=== PATIENT | male | born 1940 | race Caucasian/White ===

== ENCOUNTER 2016-10-02 18:51 | Inpatient (IN) | payer MEDICARE, OTHER ==
[~2016-10-02] VITALS: Ht 172.7 cm; Wt 115.0 kg
[~2016-10-02 18:51] MED LIST: ASPI81 PO; ATOR10 PO; CINN500C7 PO; CLOP75 PO; FENO50TA PO; FISH1000 PO; GLIP1TAB18 PO; IRON18TA2 PO; LANTINJ SC; LASI20TA PO; LISI-360 PO; PROT40TA PO; SERT50 PO; SITA100 PO; SULF1SOL4 RIGHT EYE; SYNT25TA PO; TAB-TAB PO; TAMS0.4C67 PO; TIZA4CAP PO; TOPR50TA PO; ZITH500T PO
[2016-10-02 19:00] VITALS: BP 112/67; PULSE 112; RESP 20; TEMP 98.6; O2SAT 97
[2016-10-02 19:20] VITALS: BP 112/77; PULSE 114; RESP 18; O2SAT 93
[2016-10-02] MEDS ORDERED: SODIUM CHLORIDE 0.9% FLUSH 5 ML FLUSH IVF PRN (19:30)
[2016-10-02] MEDS ORDERED: FUROSEMIDE 100 MG/10 ML VIAL IVP ONE (19:30)
--- NOTE | 2016-10-02 19:34 | PD ---
HPI Chief Complaint: Edema Time Seen by Provider: 19:14 Travel History International Travel<30 days: No Contact w/Intl Traveler<30days: No Traveled to known affect area: No History of Present Illness HPI The patient is a 75-year-old male with a history of insulin-dependent diabetes and congestive heart failure who complains since Friday of some slight shortness of breath and swelling in both legs and right arm. He has been taking his 20 mg Lasix daily. He is on Plavix for his coronary artery disease. He does not have a history of atrial fibrillation. PFSH Past Medical History Hx Anticoagulant Therapy: Yes Cancer: Yes (SKIN LESIONS REMOVED FROM FACE) Cardiovascular Problems: Yes High Cholesterol: Yes Chemotherapy: No Cerebrovascular Accident: Yes Diabetes: Yes Genitourinary: No Hypertension: Yes Immune Disorder: No Musculoskeletal: Yes (RIGHT ARM FLACID, RIGHT LEG WEAK) Neurologic: Yes (BROCAS APHASIA) Psychiatric: No Reproductive: No Respiratory: Yes Radiation Therapy: No Thyroid Disease: Yes (ON THYROXINE) Past Surgical History Abdominal Surgery: Yes (GALL STONES REMOVED ENDOSCOPICALLY 2006) AICD: No Arteriovenous Shunt: No Body Medical Devices: STENTS Cardiac Surgery: Yes (STENTS: CAROTID 2009, CARDIAC 1997, CABG 1995) Coronary Artery Bypass Graft: Yes Genitourinary Surgery: Yes (KIDNEY STENTS) Insulin Pump: No Joint Replacement: No Pacemaker: No Other Surgery: Yes (carotid stent, right) Social History Alcohol Use: No Tobacco Use: No Substance Use: No Allergies-Medications (Allergen,Severity, Reaction): Coded Allergies: No Known Allergies (Verified , 10/02/16) Reported Meds & Prescriptions Reported Meds & Active Scripts Active Sodium Sulamyd (Sulfacetamide Sodium) 15 Ml Soln 2 Drop RIGHT EYE EVERY 4 H Zithromax (Azithromycin) 500 Mg Tab 500 Mg PO DAILY Lasix (Furosemide) 20 Mg Tab 20 Mg PO DAILYPRN Reported Lantus Solostar (Insulin Glargine) 100 Units/Ml Vial 40 Units SC HS Protonix (Pantoprazole Sodium) 40 Mg Tab 40 Mg PO DAILY Lisinopril 10 Mg Tab 10 Mg PO BID Multivitamin (Multivitamins) 1 Tab Tab 1 Tab PO DAILY Iron (Ferrous Sulfate) 18 Mg Tab 65 Mg PO DAILY Cinnamon 500 Mg Cap 1,000 Mg PO HS Fish Oil 1,000 Mg Cap 2,000 Mg PO BID Levothroid (Levothyroxine Sodium) 25 Mcg Tab 25 Mcg PO DAILY EARLY AM Aspirin 81 Mg Tab 81 Mg PO HS Januvia (Sitagliptin Phosphate) 100 Mg Tab 100 Mg PO DAILY MID DAY Lipitor (Atorvastatin Calcium) 10 Mg Tab 10 Mg PO HS Tizanidine Hcl (Tizanidine HCl) 4 Mg Tab 4 Mg PO HS Flomax (Tamsulosin HCl) 0.4 Mg Cap 0.4 Mg PO DAILY Plavix (Clopidogrel Bisulfate) 75 Mg Tab 75 Mg PO DAILY Tricor (Fenofibrate) 145 Mg Tab 145 Mg PO DAILY Glipizide Er (Glipizide) 5 Mg Tab 10 Mg PO BID Zoloft (Sertraline HCl) 50 Mg Tab 75 Mg PO DAILY Toprol Xl (Metoprolol Succinate) 50 Mg Tabcr 50 Mg PO DAILY Review of Systems Except as stated in HPI: all other systems reviewed are Neg Physical Exam Narrative GENERAL: The patient is alert, oriented 3 in no respiratory distress. His vital signs show heart rate of 112 which shows a regular rhythm with runs of tachycardia, likely atrial, interposed. SKIN: Warm and dry. HEAD: Atraumatic. Normocephalic. EYES: Pupils equal and round. No scleral icterus. No injection or drainage. ENT: No nasal bleeding or discharge. Mucous membranes pink and moist. NECK: Trachea midline. No JVD. CARDIOVASCULAR: Tachycardia rhythm. No murmur appreciated. RESPIRATORY: No accessory muscle use. A few bibasal Rales are heard. Breath sounds equal bilaterally. GASTROINTESTINAL: Abdomen soft, non-tender, nondistended. Hepatic and splenic margins not palpable. MUSCULOSKELETAL: No obvious deformities. No clubbing. No cyanosis. There is 3 + bilateral lower extremity edema. No calf vein tenderness is present and no cord is palpated in the calf NEUROLOGICAL: Awake and alert. No obvious cranial nerve deficits. Motor grossly within normal limits. Normal speech. PSYCHIATRIC: Appropriate mood and affect; insight and judgment normal. Data Data Last Documented VS Vital Signs Date Time Temp Pulse Resp B/P Pulse Ox O2 Delivery O2 Flow Rate FiO2 10/02/16 19:20 114 18 112/77 93 Room Air 10/02/16 19:00 98.6 Orders Complete Blood Count With Diff (10/02/16 19:21) Comprehensive Metabolic Panel (10/02/16 19:21) B-Type Natriuretic Peptide (10/02/16 19:21) Magnesium (Mg) (10/02/16 19:21) Troponin I (10/02/16 19:21) Urinalysis - C+S If Indicated (10/02/16 19:21) Iv Access Insert/Monitor (10/02/16 19:21) Ecg Monitoring (10/02/16 19:21) Oximetry (10/02/16 19:21) Oxygen Administration (10/02/16 19:21) Chest, Pa & Lat (10/02/16 19:21) Sodium Chloride 0.9% Flush (Ns Flush) (10/02/16 19:30) Furosemide Inj (Lasix Inj) (10/02/16 19:30) Electrocardiogram (10/02/16 19:22) Labs Laboratory Tests Test 10/02/16 19:45 White Blood Count 10.6 TH/MM3 Red Blood Count 3.86 MIL/MM3 Hemoglobin 11.7 GM/DL Hematocrit 35.1 % Mean Corpuscular Volume 90.9 FL Mean Corpuscular Hemoglobin 30.3 PG Mean Corpuscular Hemoglobin 33.3 % Concent Red Cell Distribution Width 13.7 % Platelet Count 212 TH/MM3 Mean Platelet Volume 7.9 FL Neutrophils (%) (Auto) 83.0 % Lymphocytes (%) (Auto) 9.3 % Monocytes (%) (Auto) 6.9 % Eosinophils (%) (Auto) 0.2 % Basophils (%) (Auto) 0.6 % Neutrophils # (Auto) 8.8 TH/MM3 Lymphocytes # (Auto) 1.0 TH/MM3 Monocytes # (Auto) 0.7 TH/MM3 Eosinophils # (Auto) 0.0 TH/MM3 Basophils # (Auto) 0.1 TH/MM3 CBC Comment DIFF FINAL Differential Comment Sodium Level 137 MEQ/L Potassium Level 4.4 MEQ/L Chloride Level 100 MEQ/L Carbon Dioxide Level 28.4 MEQ/L Anion Gap 9 MEQ/L Blood Urea Nitrogen 36 MG/DL Creatinine 1.90 MG/DL Estimat Glomerular Filtration 35 ML/MIN Rate Random Glucose 163 MG/DL Calcium Level 8.9 MG/DL Magnesium Level 1.8 MG/DL Total Bilirubin 0.8 MG/DL Aspartate Amino Transf 29 U/L (AST/SGOT) Alanine Aminotransferase 49 U/L (ALT/SGPT) Alkaline Phosphatase 46 U/L Troponin I 0.64 NG/ML B-Type Natriuretic Peptide 618 PG/ML Total Protein 6.6 GM/DL Albumin 3.0 GM/DL MDM Medical Decision Making Medical Screen Exam Complete: Yes Emergency Medical Condition: Yes Medical Record Reviewed: Yes Interpretation(s) The troponin is 0.64. The EKG shows sinus rhythm with runs of atrial tachycardia. The total rate is 116. The CBC shows a hemoglobin of 11.7 and hematocrit of 35.1. There are 83% neutrophils. The complete metabolic profile shows a BUN of 36, creatinine 1.9 and albumen 3.0. The BNP is 618. The chest x -ray shows cardiomegaly. Differential Diagnosis Congestive heart failure, pulmonary edema, acute coronary syndrome, electrolyte disorder, hypo-/hyperglycemia Narrative Course The patient has congestive heart failure. The elevation of the troponin I may be from a congestive heart failure. He has no chest discomfort to go along with an acute coronary syndrome. He also has a tachycardia which is mostly because of runs of atrial tachycardia. His underlying rhythm is sinus. The EKG computer report says this is atrial fibrillation but this is not atrial fibrillation. Diagnosis Primary Impression: Congestive heart failure Additional Impression: Elevated troponin I level Mauricio Coats MD Oct 02, 2016 19:34
[2016-10-02 19:58] LABS: AUTOMATED NEUTROPHIL # 8.8 TH/MM3 (1.8-7.7); BASOPHIL # 0.1 TH/MM3 (0-0.2); BASOPHIL % 0.6 % (0.0-2.0); EOSINOPHIL % 0.2 % (0.0-4.0); HEMATOCRIT 35.1 % (39.0-51.0); HEMO FLAGS DIFF FINAL; LYMPH % 9.3 % (9.0-44.0); MEAN CELL VOLUME 90.9 FL (80.0-100.0); MEAN CORPUSCULAR HEMOGLOBIN 30.3 PG (27.0-34.0); MEAN CORPUSCULAR HGB CONC 33.3 % (32.0-36.0); MONO % 6.9 % (0.0-8.0); PLATELET COUNT 212 TH/MM3 (150-450); RED BLOOD COUNT 3.86 MIL/MM3 (4.50-5.90); RED CELL DISTRIBUTION WIDTH 13.7 % (11.6-17.2); WHITE BLOOD COUNT 10.6 TH/MM3 (4.0-11.0)
[2016-10-02 20:07] LABS: CHLORIDE 100 MEQ/L (98-107); POTASSIUM 4.4 MEQ/L (3.5-5.1); SODIUM (NA) 137 MEQ/L (136-145)
[2016-10-02 20:11] LABS: ANION GAP 9 MEQ/L (5-15); BICARBONATE 28.4 MEQ/L (21.0-32.0); BLOOD UREA NITROGEN 36 MG/DL (7-18); MAGNESIUM 1.8 MG/DL (1.5-2.5)
[2016-10-02 20:14] LABS: ALT (GPT) 49 U/L (12-78); AST (GOT) 29 U/L (15-37); GLOMERULAR FILTRATION RATE 35 ML/MIN (>89)
[2016-10-02 20:15] LABS: TOTAL BILIRUBIN ADULT 0.8 MG/DL (0.2-1.0)
[2016-10-02 20:16] LABS: ALKALINE PHOSPHATASE 46 U/L (45-117)
--- NOTE | 2016-10-02 20:34 | RADHPO ---
EXAM DATE/TIME: 10/02/2016 20:03 [facility] COMPARISON: CHEST PA & LAT, June 13, 2014, 2:22. INDICATIONS : Shortness of breath. MEDICAL HISTORY : Congestive heart failure. Hypertension Diabetes mellitus type II. SURGICAL HISTORY : CABG. Stents. ENCOUNTER: Initial ACUITY: 2 days PAIN SCORE: 0/10 LOCATION: chest FINDINGS: Lungs are hypoaerated. Mild interstitial vascular prominence is noted. Evidence of consolidating airs pace disease or effusion. Heart is mildly enlarged. Median sternotomy wires are noted. CONCLUSION: Poor respiratory chest without evidence of significant airspace disease or acute congestion. Cardiomegaly with evidence of previous surgery. Orion Vences MD on October 02, 2016 at 20:31 Board Certified Radiologist. This report was verified electronically.
[2016-10-02 20:36] LABS: BLOOD, URINE NEG (NEG); GLUCOSE,URINE NEG (NEG); KETONE, URINE NEG (NEG); NITRITE,URINE NEG (NEG); PH, URINE 5.5 (5.0-8.5)
[2016-10-02 20:43] LABS: URINE COLOR YELLOW (YELLW/STRAW)
[2016-10-02 20:44] LABS: COMMENT (UR) CULT NOT INDICATED; CULTURE IF INDICATED CULT NOT INDICATED; RBC, URINE 0-2 /hpf (0-3); SQUAMOUS EPITHELIAL CELL URINE 0-5 /hpf (0-5); WBC, URINE 0-2 /hpf (0-5)
[2016-10-02] MEDS: SODIUM CHLORIDE 0.9% FLUSH 5 ML FLUSH FLUSH SCH (21:00)
[2016-10-02] MEDS ORDERED: ONDANSETRON HCL 4 MG/2 ML VIAL IVP PRN (21:00)
[2016-10-02] MEDS ORDERED: NALOXONE HCL 0.4 MG/ML AMP IV PRN (21:00)
[2016-10-02] MEDS ORDERED: SODIUM CHLORIDE 0.9% FLUSH 5 ML FLUSH FLUSH PRN (21:00)
[2016-10-02 21:12] LABS: INTERNATIONAL NORMALIZED RATIO 1.1 RATIO; PROTHROMBIN TIME - PATIENT 12.2 SEC (9.8-11.6)
[2016-10-02] MEDS ORDERED: NITROGLYCERIN 0.4 MG SL 25 TABS/BTL SL PRN (21:30)
[2016-10-02 21:40] VITALS: BP 115/74; PULSE 107; RESP 18; O2SAT 98
[2016-10-02] MEDS ORDERED: PANT40TA3 PO (21:51)
[2016-10-02] MEDS ORDERED: FURO20TA PO (21:51)
[2016-10-02] MEDS ORDERED: TIZA4CAP3 PO (21:51)
[2016-10-02] MEDS ORDERED: LANTUS2P SQ (21:51)
[2016-10-02] MEDS ORDERED: ASPI81CH CHEW (21:51)
[2016-10-02] MEDS ORDERED: LISI10TA3 PO (21:51)
[2016-10-02] MEDS ORDERED: LISI-515 PO (21:51)
[2016-10-02] MEDS ORDERED: OMEG100037 PO (21:51)
[2016-10-02] MEDS ORDERED: SERT-132 PO (21:51)
[2016-10-02] MEDS ORDERED: LEVO25TA4 PO (21:51)
[2016-10-02] MEDS ORDERED: ATOR10TA15 PO (21:51)
[2016-10-02] MEDS ORDERED: FERR1TAB36 PO (21:51)
[2016-10-02] MEDS ORDERED: TAMS0.4C4 PO (21:51)
[2016-10-02] MEDS ORDERED: GLIP10TA67 PO (21:51)
[2016-10-02] MEDS ORDERED: FENO145T2 PO (21:51)
[2016-10-02] MEDS ORDERED: SERT25TA83 PO (21:51)
[2016-10-02] MEDS ORDERED: METO50TA11 PO (21:51)
[2016-10-02] MEDS ORDERED: SITA1TAB2 PO (21:51)
[2016-10-02] MEDS ORDERED: CLOP75TA PO (21:51)
[2016-10-02] MEDS: HEPARIN-D5W INJ 250 ML IV SCH (22:05)
[2016-10-02 22:23] LABS: APTT (PATIENT) 33.3 SEC (24.3-30.1)
[2016-10-03] VITALS (25 sets, daily range): BP systolic 114–134; BP diastolic 64–82; PULSE 78–128; RESP 18; TEMP 97.8–98.6; O2SAT 94–99
[2016-10-03 02:43] LABS: AUTOMATED NEUTROPHIL # 9.2 TH/MM3 (1.8-7.7); BASOPHIL # 0.1 TH/MM3 (0-0.2); BASOPHIL % 0.9 % (0.0-2.0); EOSINOPHIL % 0.4 % (0.0-4.0); HEMO FLAGS DIFF FINAL; LYMPH % 8.6 % (9.0-44.0); MEAN CELL VOLUME 90.8 FL (80.0-100.0); MEAN CORPUSCULAR HGB CONC 34.1 % (32.0-36.0); MONO % 7.5 % (0.0-8.0); NEUT % 82.6 % (16.0-70.0); PLATELET COUNT 210 TH/MM3 (150-450); RED BLOOD COUNT 3.86 MIL/MM3 (4.50-5.90); RED CELL DISTRIBUTION WIDTH 14.5 % (11.6-17.2); WHITE BLOOD COUNT 11.1 TH/MM3 (4.0-11.0)
[2016-10-03 02:52] LABS: APTT (PATIENT) 35.1 SEC (24.3-30.1)
[2016-10-03] MEDS ORDERED: HEPARIN SODIUM - IV 10,000 UNITS/10 ML VIAL IV PRN (03:00)
[2016-10-03] MEDS: HEPARIN SODIUM - IV 10,000 UNITS/10 ML VIAL IV PRN ×3 (03:06→23:52)
[2016-10-03 03:13] LABS: POTASSIUM 3.8 MEQ/L (3.5-5.1)
--- NOTE | 2016-10-03 03:23 | HHI.HP ---
[facility] Service [place] [facility] Primary Care Physician Non-Staff Admission Diagnosis acute coronary syndrome, CHF Diagnoses: Chief Complaint: Not really able to form sentences and give specific complaints Travel History International Travel<30 Days: No Contact w/Intl Traveler <30 Da: No Traveled to Known Affected Are: No History of Present Illness History from patient, ER physician communication, and review of medical records. Patient is somewhat of a poor historian. 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 However he is able to answer questions by stating yes or no. When asked whether he came to hospital because he was short of breath, he stated yes. He also reports of chest pain. Denies radiation to his arms or neck. Denies any nausea or vomiting. Denies any abdominal pains. Denies any diarrhea. Denies any black color stools or red color stools. Denies any urinary burning or pain on urination or blood in his urine. Denies fever. The patient initially presented to [facility] emergency room. Workup there revealed elevated BNP, with elevated troponin levels. When asked about a prior history of CAD, patient showed me his midline surgical scar. When asked whether this was a bypass, he nodded. Also reports of left carotid artery surgery. Patient is noted to be swelling in his lower extremity and his right upper extremity. When asked about whether the lower extremities have been swelling more and more in past few days, patient stated yes. Right upper extremity swelling is chronic according to him. He is not able to move his right upper extremity because of his previous CVA. When asked whether he walks at home, he stated no. He is on wheelchair at home. Review of Systems Except as stated in HPI: all other systems reviewed are Neg Past Family Social History Past Medical History Hypertension Hyperlipidemia Diabetes CAD- status post CABG CHF Atrial fibrillationnot on anticoagulation COPD CVAwith residual right upper extremity weakness/paralysis, right lower extremity weakness, with expressive aphasia Hypothyroidism Past Surgical History Cholecystectomy Coronary angiogram and stenting Left carotid artery stenosisstatus post stenting CABG Renal stones/stenting Reported Medications Patient's medications listed on EMRreviewed. Stated that brought a list and this was gone through Allergies: Coded Allergies: No Known Allergies (Verified , 10/02/16) Family History Denies any family history of any medical conditions. Social History Denies alcohol abuse or drug abuse. Physical Exam Vital Signs Vital Signs Date Time Temp Pulse Resp B/P Pulse Ox O2 Delivery O2 Flow Rate FiO2 10/03/16 00:20 119 18 134/80 95 Room Air 10/02/16 21:40 107 18 115/74 98 Room Air 10/02/16 19:20 114 18 112/77 93 Room Air 10/02/16 19:20 93 Room Air 10/02/16 19:20 18 93 Room Air 10/02/16 19:20 114 18 95 Room Air 10/02/16 19:00 98.6 112 20 112/67 97 Physical Exam GENERAL: This is a well-nourished, well-developed patient, in no apparent distress. Expressive aphasia. SKIN: No rashes, ecchymoses or lesions. Cool and dry. HEAD: Atraumatic. Normocephalic. EYES: No scleral icterus. No injection or drainage. ENT: Nose without bleeding, purulent drainage or septal hematoma. Airway patent. NECK: Trachea midline. No JVD or lymphadenopathy. Supple, nontender, no meningeal signs. CARDIOVASCULAR: Regular rate and rhythm without murmurs, gallops, or rubs. RESPIRATORY: Clear to auscultation. Breath sounds decreased bilaterally. Poor inspiratory effort. GASTROINTESTINAL: Abdomen soft, non-tender, nondistended. No guarding. MUSCULOSKELETAL: Extremities without clubbing, cyanosis,. Bilateral lower extremity 3+ pitting edema up to thighs. Right upper extremity bigger than the left with 2+ pitting edema. NEUROLOGICAL: Awake and alert. Right upper extremity flaccid paralysis. Right lower extremity about 3 out of 5. Expressive aphasia. Laboratory Laboratory Tests Test 10/02/16 10/02/16 10/03/16 19:45 20:20 02:33 White Blood Count 10.6 11.1 Red Blood Count 3.86 3.86 Hemoglobin 11.7 11.9 Hematocrit 35.1 35.0 Mean Corpuscular Volume 90.9 90.8 Mean Corpuscular Hemoglobin 30.3 31.0 Mean Corpuscular Hemoglobin 33.3 34.1 Concent Red Cell Distribution Width 13.7 14.5 Platelet Count 212 210 Mean Platelet Volume 7.9 8.1 Neutrophils (%) (Auto) 83.0 82.6 Lymphocytes (%) (Auto) 9.3 8.6 Monocytes (%) (Auto) 6.9 7.5 Eosinophils (%) (Auto) 0.2 0.4 Basophils (%) (Auto) 0.6 0.9 Neutrophils # (Auto) 8.8 9.2 Lymphocytes # (Auto) 1.0 1.0 Monocytes # (Auto) 0.7 0.8 Eosinophils # (Auto) 0.0 0.0 Basophils # (Auto) 0.1 0.1 CBC Comment DIFF FINAL DIFF FINAL Differential Comment Prothrombin Time 12.2 Prothromb Time International 1.1 Ratio Activated Partial 33.3 35.1 Thromboplast Time Sodium Level 137 138 Potassium Level 4.4 3.8 Chloride Level 100 99 Carbon Dioxide Level 28.4 29.0 Anion Gap 9 10 Blood Urea Nitrogen 36 37 Creatinine 1.90 1.95 Estimat Glomerular Filtration 35 34 Rate Random Glucose 163 151 Calcium Level 8.9 8.9 Magnesium Level 1.8 Total Bilirubin 0.8 Aspartate Amino Transf 29 (AST/SGOT) Alanine Aminotransferase 49 (ALT/SGPT) Alkaline Phosphatase 46 Troponin I 0.64 0.50 B-Type Natriuretic Peptide 618 Total Protein 6.6 Albumin 3.0 Urine Color YELLOW Urine Turbidity CLEAR Urine pH 5.5 Urine Specific [place] 1.018 Urine Protein NEG Urine Glucose (UA) NEG Urine Ketones NEG Urine Occult Blood NEG Urine Nitrite NEG Urine Bilirubin NEG Urine Leukocyte Esterase NEG Urine RBC 0-2 Urine WBC 0-2 Urine Squamous Epithelial 0-5 Cells Urine Bacteria NONE Microscopic Urinalysis Comment CULT NOT INDICATED Total Creatine Kinase 56 Result Diagram: 10/03/1623210/03/16232 Imaging Last 48 hours Impressions Chest X-Ray 10/02/161920 Signed Impressions: Service Date/Time: Sunday, October 02, 2016 20:03 - CONCLUSION: Poor respiratory chest without evidence of significant airspace disease or acute congestion. Cardiomegaly with evidence of previous surgery. Orion Vences MD Assessment and Plan Problem List: (1) Congestive heart failure ICD Code: I50.9 Status: Acute (2) Elevated troponin I level ICD Code: R74.8 Status: Acute Assessment and Plan Impression: Acute on chronic CHF exacerbation Elevated troponinsecondary to demand ischemia from dyspnea versus non-ST elevation NV Atrial fibrillationwith controlled rate. Initially upon arrival was tachycardic up to 110 and 120s Hypertension Hyperlipidemia Diabetes CAD- status post CABG CHF Atrial fibrillationnot on anticoagulation COPD CVAwith residual right upper extremity weakness/paralysis, right lower extremity weakness, with expressive aphasia Hypothyroidism Plan: Patient received 80 mg IV Lasix in ER. He did diurese about 1800 cc total so far. He denies any shortness of breath or chest pains at present. We'll obtain an echocardiogram in a.m. Resume home meds. Started patient on heparin drip per ACS protocol. Cardiology consulted. Resume home medications. DVT prophylaxison heparin. GI prophylaxis on pantoprazole. Discussed Condition With Patient, ER physician, patient's nurse Physician Certification 2 Midnight Certification Type: Admission for Inpatient Services Order for Inpatient Services The services are ordered in accordance with Medicare regulations or non- Medicare payer requirements, as applicable. In the case of services not specified as inpatient-only, they are appropriately provided as inpatient services in accordance with the 2-midnight benchmark. Estimated LOS (days): 2 days is the estimated time the patient will need to remain in the hospital, assuming treatment plan goals are met and no additional complications. Post-Hospital Plan: Home Norma German MD Oct 03, 2016 03:23
[2016-10-03] MEDS ORDERED: DEXTROSE 50% IN WATER 50 ML VIAL(D50) IV PUSH PRN ×2 (08:00)
[2016-10-03] MEDS ORDERED: GLUCAGON 1 MG/ML VIAL OTHER PRN ×2 (08:00)
--- NOTE | 2016-10-03 08:06 | HHI.PR ---
Subjective Remarks in no distress. sob has improved. no chest pain. Objective Vitals Vital Signs Date Time Temp Pulse Resp B/P Pulse Ox O2 Delivery O2 Flow Rate FiO2 10/03/16 06:00 98 10/03/16 05:00 90 10/03/16 04:00 128 10/03/16 03:00 110 10/03/16 02:30 98 10/03/16 01:50 98.0 84 18 122/82 99 10/03/16 00:20 119 18 134/80 95 Room Air 10/02/16 21:40 107 18 115/74 98 Room Air 10/02/16 19:20 114 18 112/77 93 Room Air 10/02/16 19:20 93 Room Air 10/02/16 19:20 18 93 Room Air 10/02/16 19:20 114 18 95 Room Air 10/02/16 19:00 98.6 112 20 112/67 97 I/O 10/02/16 10/02/16 10/02/16 10/03/16 10/03/16 10/03/16 07:00 15:00 23:00 07:00 15:00 23:00 Intake Total 336 ml Output Total 500 ml 1300 ml Balance -500 ml -964 ml Intake IV Total 336 ml Output Urine Total 500 ml 1300 ml Result Diagram: 10/03/16 0233 10/03/16 0233 Imaging Last Impressions Chest X-Ray 10/02/161920 Signed Impressions: Service Date/Time: Sunday, October 02, 2016 20:03 - CONCLUSION: Poor respiratory chest without evidence of significant airspace disease or acute congestion. Cardiomegaly with evidence of previous surgery. Orion Vences MD Objective Remarks GENERAL: This is a well-nourished, well-developed patient, in no apparent distress. CARDIOVASCULAR: Regular rate and regular rhythm without murmurs, gallops, or rubs. RESPIRATORY: Clear to auscultation. Breath sounds equal bilaterally. No wheezes , rales, or rhonchi. GASTROINTESTINAL: Abdomen soft, non-tender, nondistended. Normal, active bowel sounds MUSCULOSKELETAL: Extremities with bilateral pedal edema NEURO: Alert & Oriented x4 to person, place, time, situation. Procedures none Medications and IVs Current Medications IV Flush (NS Flush) 2 ml UNSCH PRN IVF FLUSH AFTER USING IV ACCESS Last administered on 10/02/16 20:56; Start 10/02/16 at 19:30; Stop 10/02/16 at 21:08; Status DC Furosemide (Lasix Inj) 80 mg ONCE ONCE IVP Last administered on 10/02/16 20:53 ; Start 10/02/16 at 19:30; Stop 10/02/16 at 19:31; Status DC IV Flush (NS Flush) 2 ml UNSCH PRN FLUSH FLUSH AFTER USING IV ACCESS; Start 10/02/16 at 21:00 IV Flush (NS Flush) 2 ml BID FLUSH ; Start 10/02/16 at 21:00 Ondansetron HCl (Zofran Inj) 4 mg Q6H PRN IVP NAUSEA OR VOMITING; Start at 21:00 Naloxone HCl (Narcan Inj) 0.4 mg UNSCH PRN IV SEE LABEL COMMENTS; Start at 21:00 Heparin Sodium (Porcine) (Heparin Inj) 5,000 units UNSCH PRN IV APTT LESS THAN 25; Start 10/03/16 at 03:00 Heparin Sodium (Porcine) 2500 units 2,500 units UNSCH PRN IV APTT 25 TO 39 Last administered on 10/03/16 03:06; Start 10/03/16 at 03:00 Heparin Sodium/ Dextrose (Heparin-D5W Inj) 250 ml @ 0 mls/hr TITRATE IV Last administered on 10/02/16 22:05; Start 10/02/16 at 21:00 Nitroglycerin (Nitrostat Sl) 0.4 mg Q5M PRN SL CHEST PAIN; Start 10/02/16 at 21: 30 A/P Assessment and Plan A/P - NSTEMI continue heparin drip- resume aspirin, statin and BB- cardiology consulted -Atrial fibrillation with rapid ventricular response resume BB- on heparin drip- cardiology consult as noted above- check echo -CHF- acute on chronic; start lasix- check echo- cardiology evaluation -diabetes mellitus; accu-check with SSI- resume home meds sson- -history of CVA and dyslipidemia; resume aspirin and statin -chronic renal insufficiency; at his baseline- will monitor -hypertension; resume BB- hold lisinopril for now -hypothyroidism; resume home meds soon -DVT prophylaxis; on heparin Yanni Almazan MD Oct 03, 2016 08:06
[2016-10-03] MEDS: SODIUM CHLORIDE 0.9% FLUSH 5 ML FLUSH FLUSH SCH ×2 (09:00→20:35)
[2016-10-03] MEDS ORDERED: PANTOPRAZOLE SOD 40 MG DELAYED RELEASE TAB PO SCH (09:00)
[2016-10-03 09:31] LABS: APTT (PATIENT) 35.7 SEC (24.3-30.1)
[2016-10-03] MEDS: FUROSEMIDE 40 MG/4 ML VIAL IV PUSH SCH (09:31)
[2016-10-03] MEDS: PANTOPRAZOLE SOD 40 MG DELAYED RELEASE TAB PO SCH (09:31)
[2016-10-03] MEDS: METOPROLOL SUCCINATE 50 MG EXTENDED RELEASE TAB PO SCH (09:31)
[2016-10-03] MEDS: ASPIRIN 81 MG CHEW TAB CHEW SCH (09:31)
[2016-10-03] MEDS: SODIUM CHLOR 0.45% 1000 ML INJ 1,000 ML IV SCH (09:36)
[2016-10-03] MEDS: INSULIN ASPART SUPPLEMENTAL SCALE SQ SCH ×3 (11:00→20:33)
--- NOTE | 2016-10-03 16:52 | MB ---
cc: JENNIFER DICKINSON DATE OF CONSULTATION: 10/03/2016 HISTORY OF PRESENT ILLNESS: Mr. Pruitt is a 75-year-old white male with a history of coronary artery disease and coronary artery bypass. He presented with substernal chest discomfort and shortness of breath. He was found to have elevated troponin consistent with non-ST elevation myocardial infarction. He was transferred from the [facility] Room to the [facility] hospital. He currently has no chest pain. His shortness of breath is improving. PAST MEDICAL HISTORY: 1. Hypertension. 2. Dyslipidemia. 3. Diabetes mellitus. 4. Coronary artery disease. 5. History of coronary artery bypass. 6. Congestive heart failure. 7. Atrial fibrillation. 8. COPD. 9. CVA with residual right-sided weakness and expressive aphasia. 10. History of hypothyroidism. 11. Cholecystectomy. 12. Coronary angiography and stenting. 13. Coronary bypass. 14. Left carotid artery stenting. MEDICATIONS: His medications include: 1. Atorvastatin. 2. Insulin. 3. Aspirin. 4. Metoprolol. 5. Pantoprazole. 6. Furosemide. ALLERGIES: NO KNOWN MEDICAL ALLERGIES. SOCIAL HISTORY: The patient does not smoke. He does not drink alcohol. He is accompanied by his . FAMILY HISTORY: Family history is negative for heart disease. REVIEW OF SYSTEMS: The review of systems is otherwise negative. PHYSICAL EXAMINATION: VITAL SIGNS: Blood pressure 114/71, pulse 78 and irregular. HEAD, EYES, EARS, NOSE, THROAT: Negative. NECK: 2+ carotid upstrokes, no bruits. LUNGS: Clear. HEART: Irregularly irregular with no murmurs, rubs or gallops. ABDOMEN: Abdomen soft. No bruits. EXTREMITIES: With 2+ edema more prominent on the right side. 1+ distal pulses. NEUROLOGIC: Right-sided weakness and expressive aphasia. EKGS: EKG was reviewed and showed atrial fibrillation with rapid ventricular response, poor R wave progression over the precordial leads, anterior Q waves and interventricular conduction delay, diffuse nonspecific STT changes. Followup EKG showed atrial fibrillation with controlled ventricular response. LABS: Potassium 3.8, creatinine 1.95. CK 56 and 75. Troponin 0.64, 0.50 and 0.55. BNP 618. DIAGNOSIS: 1. Acute congestive heart failure. 2. Possible non-ST elevation myocardial infarction. 3. Atrial fibrillation with rapid ventricular response. 4. Diabetes mellitus. 5. Coronary artery disease with history of coronary bypass. 6. History of CVA. 7. Hypertension. DISPOSITION: The patient will be monitored on telemetry. We will continue therapy for congestive heart failure. We will closely monitor his renal function. Since his troponin is not trending, his troponin elevation may be possibly related to his renal insufficiency, congestive heart failure and atrial fibrillation with rapid ventricular response. I will follow Mr. Pruitt during his hospitalization for cardiology. I will also see him for followup in our office after discharge. MD REGULO [place]/ROEL /1:49 PM /4:41 PM ORIANA
[2016-10-03 17:08] LABS: APTT (PATIENT) 40.9 SEC (24.3-30.1)
[2016-10-03] MEDS: HEPARIN-D5W INJ 250 ML IV SCH (17:19)
--- NOTE | 2016-10-03 19:03 | EC ---
Study Study Date:10/03/2016 STUDY CONCLUSIONS SUMMARY - Left ventricle: The cavity size was mildly dilated. Wall thickness was normal. Systolic function was severely reduced. The estimated ejection fraction was in the range of 20% to 25%. Wall motion was normal; there were no regional wall motion abnormalities. - Aortic valve: Valve area: 3.04cm^2(VTI). Valve area: 3.72cm^2 (Vmax). - Mitral valve: Mildly calcified annulus. Moderate regurgitation. - Left atrium: The atrium was mildly dilated. If LV function is below 40, please consider prescribing an ACEI or ARB or document rationale for non-use. PROCEDURE DATA STUDY STATUS: Elective. Procedure: Transthoracic echocardiography. Image quality was poor. Scanning was performed from the parasternal, apical, and subcostal acoustic windows. Study completion: The patient tolerated the procedure well. Transthoracic echocardiography. M-mode, complete 2D, complete spectral Doppler, and color Doppler. Height: Height: 68in. Weight: Weight: 252.5lb. Body mass index: BMI: 38.5kg/m^2. Body surface area: BSA: 2.26m^2. Patient status: Inpatient. CARDIAC ANATOMY LEFT VENTRICLE: The cavity size was mildly dilated. Wall thickness was normal. Systolic function was severely reduced. The estimated ejection fraction was in the range of 20% to 25%. Wall motion was normal; there were no regional wall motion abnormalities. AORTIC VALVE: Trileaflet; mildly thickened, mildly calcified leaflets. Doppler: Transvalvular velocity was within the normal range. There was no stenosis. No regurgitation. Valve area: 3.04cm^2(VTI). Indexed valve area: 1.35cm^2/m^2 (VTI). Valve area: 3.72cm^2 (Vmax). Indexed valve area: 1.65cm^2/m^2 (Vmax). Mean gradient: 3mm Hg (S). AORTA: Aortic root: The aortic root was normal in size. MITRAL VALVE: Mildly calcified annulus. Doppler: Transvalvular velocity was within the normal range. There was no evidence for stenosis. Moderate regurgitation. Peak gradient: 5mm Hg (D). LEFT ATRIUM: The atrium was mildly dilated. RIGHT VENTRICLE: The cavity size was normal. Wall thickness was normal. PULMONIC VALVE: Doppler: Transvalvular velocity was within the normal range. There was no evidence for stenosis. No regurgitation. TRICUSPID VALVE: Structurally normal valve. Doppler: Transvalvular velocity was within the normal range. No regurgitation. PULMONARY ARTERY: The main pulmonary artery was normal-sized. Systolic pressure was within the normal range. RIGHT ATRIUM: The atrium was normal in size. PERICARDIUM: There was no pericardial effusion. SYSTEMIC VEINS: Inferior vena cava: The vessel was normal in size. Patient weight: 252.5lb _Ejection fraction:_ 65-75% _Fractional shortening:_ 32% up to 5Kg 5-11.5Kg 11.6-22.9Kg 23-45Kg 45-57Kg Aortic Root 7-13 <17 13-22 17-27 17-27 LA diam 6-13 <23 24-38 33-47 37-40 RVID 10-17 7-15 7-15 7-18 8-17 LVIDd 12-22 <32 24-38 33-47 37-40 LVPW 2-4 3-6 5-7 6-8 7-8 IVS 2-4 3-6 5-7 6-8 7-8 BASIC MEASUREMENTS ADULT NORMAL Left ventricle LV internal dimension, ED, chordal *58.7 mm 43-52 level, PLAX LV internal dimension, ES, chordal *53.1 mm 23-38 level, PLAX Fractional shortening, chordal level, *10 % >29 PLAX LV posterior wall thickness, ED 9.78 mm IVS/LVPW ratio, ED 1 <1.3 Ventricular septum Septal thickness, ED 9.78 mm Aortic valve Leaflet separation 21 mm 15-26 Aorta Root diameter, ED 35 mm Left atrium Anterior-posterior dimension 48 mm Anterior-posterior dimension index 2.12 cm/m^2 <2.2 BASIC MEASUREMENTS ADULT NORMAL Aortic valve Leaflet separation 21 mm 15-26 DOPPLER MEASUREMENTS ADULT NORMAL Aortic valve Peak velocity, S 116 cm/s Mean velocity, S 84.3 cm/s VTI, S 19.8 cm Mean gradient, S 3 mm Hg Valve area, VTI 3.04 cm^2 Valve area index, VTI 1.35 cm^2/m^2 Valve area, Vmax 3.72 cm^2 Valve area index, Vmax 1.65 cm^2/m^2 Mitral valve Peak E-wave velocity 117 cm/s Peak A-wave velocity 27.4 cm/s Peak gradient, D 5 mm Hg Peak E/A ratio 4.3 Pulmonic valve Peak velocity, S 71.4 cm/s LEGEND: Mean values are shown as u=mean value. Asterisk (*) blanc values outside specified normal range. Prepared and signed by Tyler Rendon [id number]
[2016-10-03] MEDS ORDERED: ATORVASTATIN 10 MG TAB PO SCH (21:00)
[2016-10-03 23:15] LABS: APTT (PATIENT) 34.3 SEC (24.3-30.1)
--- NOTE | 2016-10-03 23:43 | EKG ---
Date Performed: 10/03/2016 Time Performed: 03:10:56 PTAGE: 75 years EKG: Atrial fibrillation Leftward axis IV conduction defect Inferior/lateral ST-T changes may be due to myocardial ischemia Abnormal ECG PREVIOUS TRACING : 10/02/2016 19.28 Compared to prior tracing no significant change DOCTOR: Neville Oconnor Interpretating Date/Time 10/03/2016 23:42:54
--- NOTE | 2016-10-03 23:53 | EKG ---
Date Performed: 10/02/2016 Time Performed: 19:28:38 PTAGE: 75 years EKG: Atrial fibrillation with rapid ventricular response Left axis deviation IV conduction defec t Possible anterior infarct - age undetermined Inferior/lateral ST-T changes may be due to myocardial ischemia Abnormal ECG PREVIOUS TRACING : 06/13/2014 01.59 Compared to prior tracing no significant change DOCTOR: Neville Oconnor Interpretating Date/Time 10/03/2016 23:51:32
[2016-10-04] VITALS (26 sets, daily range): BP systolic 113–139; BP diastolic 65–81; PULSE 64–112; RESP 18; TEMP 97.6–98.8; O2SAT 95–99
[2016-10-04] MEDS: SODIUM CHLOR 0.45% 1000 ML INJ 1,000 ML IV SCH ×2 (03:41→17:20)
[2016-10-04 05:56] LABS: APTT (PATIENT) 42.9 SEC (24.3-30.1)
[2016-10-04 06:04] LABS: BICARBONATE 26.2 MEQ/L (21.0-32.0); POTASSIUM 3.8 MEQ/L (3.5-5.1)
[2016-10-04] MEDS: INSULIN ASPART SUPPLEMENTAL SCALE SQ SCH ×4 (06:44→23:17)
--- NOTE | 2016-10-04 08:47 | HHI.PR ---
Subjective Remarks resting comfortably with no distress. denies chest pain or sob. d/w the RN. Objective Vitals Vital Signs Date Time Temp Pulse Resp B/P Pulse Ox O2 Delivery O2 Flow Rate FiO2 10/04/16 08:03 91 10/04/16 08:03 97.6 98 18 139/81 95 10/04/16 07:15 112 10/04/16 06:00 84 10/04/16 05:00 88 10/04/16 04:00 94 10/04/16 03:33 98.4 80 18 121/75 96 10/04/16 03:00 78 10/04/16 02:00 90 10/04/16 01:00 102 10/04/16 00:00 98.8 94 18 113/71 96 10/04/16 00:00 90 10/03/16 23:00 96 10/03/16 22:00 92 10/03/16 21:00 80 10/03/16 20:00 80 10/03/16 19:56 97.8 88 18 121/78 96 10/03/16 19:00 98 10/03/16 17:00 88 10/03/16 16:00 105 10/03/16 15:09 86 10/03/16 15:09 98.5 95 18 118/64 94 10/03/16 14:00 112 10/03/16 13:00 78 10/03/16 12:00 85 10/03/16 11:00 87 10/03/16 11:00 98.1 91 18 114/71 96 10/03/16 10:00 110 10/03/16 09:00 94 I/O 10/03/16 10/03/16 10/03/16 10/04/16 10/04/16 10/04/16 07:00 15:00 23:00 07:00 15:00 23:00 Intake Total 336 ml 720 ml 480 ml Output Total 1300 ml 875 ml 530 ml Balance -964 ml -155 ml -50 ml Intake Oral 720 ml 480 ml IV Total 336 ml Output Urine Total 1300 ml 875 ml 530 ml # Bowel Movements 0 Result Diagram: 10/03/16 0233 10/04/16 0510 Imaging Last Impressions Chest X-Ray 10/02/16 1921 Signed Impressions: Service Date/Time: Sunday, October 02, 2016 20:03 - CONCLUSION: Poor respiratory chest without evidence of significant airspace disease or acute congestion. Cardiomegaly with evidence of previous surgery. Orion Vences MD Objective Remarks GENERAL: This is a well-nourished, well-developed patient, in no apparent distress. CARDIOVASCULAR: Regular rate and regular rhythm without murmurs, gallops, or rubs. RESPIRATORY: Clear to auscultation. Breath sounds equal bilaterally. No wheezes , rales, or rhonchi. GASTROINTESTINAL: Abdomen soft, non-tender, nondistended. Normal, active bowel sounds MUSCULOSKELETAL: Extremities with bilateral pedal edema NEURO: Alert & Oriented x4 to person, place, time, situation. Procedures none Medications and IVs Current Medications IV Flush (NS Flush) 2 ml UNSCH PRN IVF FLUSH AFTER USING IV ACCESS Last administered on 10/02/16 20:56; Start 10/02/16 at 19:30; Stop 10/02/16 at 21:08; Status DC Furosemide (Lasix Inj) 80 mg ONCE ONCE IVP Last administered on 10/02/16 20:53 ; Start 10/02/16 at 19:30; Stop 10/02/16 at 19:31; Status DC IV Flush (NS Flush) 2 ml UNSCH PRN FLUSH FLUSH AFTER USING IV ACCESS; Start 10/02/16 at 21:00 IV Flush (NS Flush) 2 ml BID FLUSH Last administered on 10/03/16 20:35; Start 10/02/16 at 21:00 Ondansetron HCl (Zofran Inj) 4 mg Q6H PRN IVP NAUSEA OR VOMITING; Start at 21:00 Naloxone HCl (Narcan Inj) 0.4 mg UNSCH PRN IV SEE LABEL COMMENTS; Start at 21:00 Heparin Sodium (Porcine) (Heparin Inj) 5,000 units UNSCH PRN IV APTT LESS THAN 25; Start 10/03/16 at 03:00 Heparin Sodium (Porcine) 2500 units 2,500 units UNSCH PRN IV APTT 25 TO 39 Last administered on 10/03/16 23:52; Start 10/03/16 at 03:00 Heparin Sodium/ Dextrose (Heparin-D5W Inj) 250 ml @ 0 mls/hr TITRATE IV Last administered on 10/03/16 17:19; Start 10/02/16 at 21:00 Nitroglycerin (Nitrostat Sl) 0.4 mg Q5M PRN SL CHEST PAIN; Start 10/02/16 at 21: 30 Pantoprazole Sodium (Protonix) 40 mg DAILY PO ; Start 10/03/16 at 09:00; Stop 10/03/16 at 09:00; Status DC Dextrose (D50w (Vial) Inj) 25 ml UNSCH PRN IV PUSH HYPOGLYCEMIA-SEE COMMENTS; Start 10/03/16 at 08:00; Stop 10/03/16 at 08:56; Status DC Glucagon (Glucagon Inj) 1 mg UNSCH PRN OTHER HYPOGLYCEMIA-SEE COMMENTS; Start 10/03/16 at 08:00; Stop 10/03/16 at 08:56; Status DC Aspirin (Aspirin Chew) 81 mg DAILY CHEW Last administered on 10/03/16 09:31; Start 10/03/16 at 09:00 Atorvastatin Calcium (Lipitor) 10 mg HS PO Last administered on 10/03/16 20:33 ; Start 10/03/16 at 21:00 Metoprolol Succinate (Toprol Xl) 50 mg DAILY PO Last administered on 10/03/16 09:31; Start 10/03/16 at 09:00 Pantoprazole Sodium (Protonix) 40 mg DAILY PO Last administered on 10/03/16 09: 31; Start 10/03/16 at 09:00 Dextrose (D50w (Vial) Inj) 25 ml UNSCH PRN IV PUSH HYPOGLYCEMIA-SEE COMMENTS; Start 10/03/16 at 08:00 Glucagon (Glucagon Inj) 1 mg UNSCH PRN OTHER HYPOGLYCEMIA-SEE COMMENTS; Start 10/03/16 at 08:00 Insulin Aspart 1 1 ACHS SLIDING SCALE SQ Last administered on 10/04/16 06:44; Start 10/03/16 at 11:00 Sodium Chloride (1/2 NS 1000 ml Inj) 1,000 ml @ 60 mls/hr [id number] IV Last administered on 10/04/16 03:41; Start 10/03/16 at 08:00 Furosemide (Lasix Inj) 40 mg DAILY IV PUSH Last administered on 10/03/16 09:31 ; Start 10/03/16 at 09:00 A/P Assessment and Plan A/P - NSTEMI continue heparin drip- resumed aspirin, statin and BB- cardiology consult appreciated. -Atrial fibrillation with rapid ventricular response- now HR is better controlled. resumed BB- on heparin drip- cardiology consult as noted above- -CHF- acute on chronic systolic; started lasix- echo with EF 20-25%-- cardiology following. -diabetes mellitus; accu-check with SSI- -history of CVA and dyslipidemia; resume aspirin and statin -chronic renal insufficiency; at his baseline- will monitor -hypertension; resumed BB- hold lisinopril for now -hypothyroidism; resumed home meds soon -DVT prophylaxis; on heparin drip Discharge Planning pending cardiology evaluation and clinical course. Yanni Weinberg MD Oct 04, 2016 08:47
[2016-10-04] MEDS: PANTOPRAZOLE SOD 40 MG DELAYED RELEASE TAB PO SCH (09:18)
[2016-10-04] MEDS: METOPROLOL SUCCINATE 50 MG EXTENDED RELEASE TAB PO SCH (09:18)
[2016-10-04] MEDS: ASPIRIN 81 MG CHEW TAB CHEW SCH (09:18)
[2016-10-04] MEDS: SODIUM CHLORIDE 0.9% FLUSH 5 ML FLUSH FLUSH SCH ×2 (09:21→22:35)
[2016-10-04] MEDS: FUROSEMIDE 40 MG/4 ML VIAL IV PUSH SCH (09:21)
[2016-10-04 10:15] LABS: HDL CHOLESTEROL 34.5 MG/DL (40.0-60.0)
[2016-10-04] MEDS: ISOSORBIDE MONONITRATE 30 MG TAB PO SCH (12:05)
[2016-10-04] MEDS: APIXABAN 2.5 MG TABLET PO SCH ×2 (12:05→22:35)
--- NOTE | 2016-10-04 14:07 | PD.CARD.PN ---
Subjective Subjective Remarks No CP, SOB improving, but not ambulating much yet Objective Medications Current Medications Medications (Trade) Dose Ordered Sig/Jonathan Route Start Time Stop Time Status Last Admin (NS Flush) 2 ml UNSCH PRN FLUSH 10/02/16 21:00 (NS Flush) 2 ml BID FLUSH 10/02/16 21:00 10/04/16 09:21 (Zofran Inj) 4 mg Q6H PRN IVP 10/02/16 21:00 (Narcan Inj) 0.4 mg UNSCH PRN IV 10/02/16 21:00 (Nitrostat Sl) 0.4 mg Q5M PRN SL 10/02/16 21:30 (Aspirin Chew) 81 mg DAILY CHEW 10/03/16 09:00 10/04/16 09:18 (Lipitor) 10 mg HS PO 10/03/16 21:00 10/03/16 20:33 (Toprol Xl) 50 mg DAILY PO 10/03/16 09:00 10/04/16 09:18 (Protonix) 40 mg DAILY PO 10/03/16 09:00 10/04/16 09:18 (D50w (Vial) Inj) 25 ml UNSCH PRN IV PUSH 10/03/16 08:00 Glucagon 1 mg 1 mg UNSCH PRN OTHER 10/03/16 08:00 (1 NS 1000 ml Inj) 1,000 ml @ 60 mls/hr [id number] IV 10/03/16 08:00 10/04/16 03:41 (Lasix Inj) 40 mg DAILY IV PUSH 10/03/16 09:00 10/04/16 09:21 (Eliquis) 2.5 mg BID PO 10/04/16 11:00 10/04/16 12:05 (Imdur) 30 mg DAILY PO 10/04/16 11:00 10/04/16 12:05 Vital Signs / I&O Vital Signs Date Time Temp Pulse Resp B/P Pulse Ox O2 Delivery O2 Flow Rate FiO2 10/04/16 12:14 98.1 87 18 129/75 99 10/04/16 12:13 80 10/04/16 11:26 92 10/04/16 10:00 76 10/04/16 09:25 111 10/04/16 08:03 91 10/04/16 08:03 97.6 98 18 139/81 95 10/04/16 07:15 112 10/04/16 06:00 84 10/04/16 05:00 88 10/04/16 04:00 94 10/04/16 03:33 98.4 80 18 121/75 96 10/04/16 03:00 78 10/04/16 02:00 90 10/04/16 01:00 102 10/04/16 00:00 98.8 94 18 113/71 96 10/04/16 00:00 90 10/03/16 23:00 96 10/03/16 22:00 92 10/03/16 21:00 80 10/03/16 20:00 80 10/03/16 19:56 97.8 88 18 121/78 96 10/03/16 19:00 98 10/03/16 17:00 88 10/03/16 16:00 105 10/03/16 15:09 86 10/03/16 15:09 98.5 95 18 118/64 94 10/03/16 14:00 112 I/O 10/03/16 10/03/16 10/03/16 10/04/16 10/04/16 10/04/16 07:00 15:00 23:00 07:00 15:00 23:00 Intake Total 336 ml 720 ml 480 ml Output Total 1300 ml 875 ml 530 ml Balance -964 ml -155 ml -50 ml Intake Oral 720 ml 480 ml IV Total 336 ml Output Urine Total 1300 ml 875 ml 530 ml # Bowel Movements 0 Physical Exam GENERAL: In NAD SKIN: Warm and dry. HEAD: Normocephalic. EYES: No scleral icterus. No injection or drainage. NECK: Supple, trachea midline. No JVD or lymphadenopathy. CARDIOVASCULAR: Irregular, without murmurs, gallops, or rubs. RESPIRATORY: Breath sounds equal bilaterally. No accessory muscle use. Clear. GASTROINTESTINAL: Abdomen soft, non-tender, nondistended. MUSCULOSKELETAL: No cyanosis, bilat pedal edema. Laboratory Laboratory Tests Test 10/03/16 10/03/16 10/04/16 16:44 22:42 05:10 Activated Partial 40.9 SEC 34.3 SEC 42.9 SEC Thromboplast Time Sodium Level 137 MEQ/L Potassium Level 3.8 MEQ/L Chloride Level 101 MEQ/L Carbon Dioxide Level 26.2 MEQ/L Anion Gap 10 MEQ/L Blood Urea Nitrogen 41 MG/DL Creatinine 1.76 MG/DL Estimat Glomerular Filtration 38 ML/MIN Rate Random Glucose 223 MG/DL Calcium Level 8.3 MG/DL Triglycerides Level 187 MG/DL Cholesterol Level 116 MG/DL LDL Cholesterol 44 MG/DL HDL Cholesterol 34.5 MG/DL Cholesterol/HDL Ratio 3.36 RATIO Imaging Last Impressions Chest X-Ray 10/02/16 192 Signed Impressions: Service Date/Time: Sunday, October 02, 2016 20:03 - CONCLUSION: Poor respiratory chest without evidence of significant airspace disease or acute congestion. Cardiomegaly with evidence of previous surgery. Orion Vences MD Assessment and Plan Problem List: (1) Congestive heart failure (2) NSTEMI (non-ST elevated myocardial infarction) (3) Atrial fibrillation and flutter (4) Cardiomyopathy, ischemic (5) CAD (coronary artery disease) (6) Hx of CABG (7) CKD (chronic kidney disease) (8) H/O: CVA (cerebrovascular accident) (9) DM (diabetes mellitus) (10) HTN (hypertension) Assessment and Plan The invasive vs noninvasive management discussed with the family including his oldest son Jamel [place]. The patient has not had any recent cardiology f/u (possibly up to the last 5 years). Due to his multiple comorbidities, the risk of cardiac catheterization and coronary intervention is significant. I am quite concerned about the risk of contrast nephropathy. His symptoms are improved, at this time we will pursue medical management including beta alvarez , nitrates, aspirin, and increased dose statin. Start Eliquis for atrial flutter. Continue rate control. Continue CHF management including diuresis, beta alvarez; add back losartan once renal fx stabilized. Continue monitoring on telemetry. Monitor renal function. Increase activity. Problem Qualifiers (1) Congestive heart failure: Qualified Code: I50.23 - Acute on chronic systolic congestive heart failure Karyna Freedman MD Oct 04, 2016 14:07
[2016-10-04] MEDS: ATORVASTATIN 80 MG TAB PO SCH (22:34)
[2016-10-05] VITALS (26 sets, daily range): BP systolic 112–158; BP diastolic 63–87; PULSE 57–78; RESP 14–20; TEMP 97.6–98.5; O2SAT 94–97
[2016-10-05] MEDS: INSULIN ASPART SUPPLEMENTAL SCALE SQ SCH ×4 (06:24→21:00)
[2016-10-05 06:38] LABS: HEMATOCRIT 33.7 % (39.0-51.0); MEAN CELL VOLUME 90.9 FL (80.0-100.0); MEAN CORPUSCULAR HEMOGLOBIN 30.7 PG (27.0-34.0); MEAN CORPUSCULAR HGB CONC 33.8 % (32.0-36.0); PLATELET COUNT 207 TH/MM3 (150-450); RED BLOOD COUNT 3.71 MIL/MM3 (4.50-5.90); RED CELL DISTRIBUTION WIDTH 14.5 % (11.6-17.2); REVIEW FLAG FINAL; WHITE BLOOD COUNT 7.7 TH/MM3 (4.0-11.0)
[2016-10-05] MEDS ORDERED: METOPROLOL TARTRATE 25 MG TAB PO SCH (09:00)
--- NOTE | 2016-10-05 09:10 | HHI.PR ---
Subjective Remarks resting comfortably with no distress. denies chest pain or sob. no new complaints. Objective Vitals Vital Signs Date Time Temp Pulse Resp B/P Pulse Ox O2 Delivery O2 Flow Rate FiO2 10/05/16 06:00 68 10/05/16 05:00 68 10/05/16 04:00 61 10/05/16 04:00 98.1 68 18 132/66 97 10/05/16 03:00 64 10/05/16 02:00 63 10/05/16 01:00 74 10/05/16 00:00 78 10/04/16 23:00 82 10/04/16 23:00 97.8 78 18 126/70 98 10/04/16 22:00 64 10/04/16 21:00 74 10/04/16 20:00 74 10/04/16 19:00 79 10/04/16 19:00 98.0 74 18 127/65 97 10/04/16 18:09 73 10/04/16 17:09 66 10/04/16 16:06 65 10/04/16 16:06 97.7 70 18 118/67 98 10/04/16 15:29 65 10/04/16 14:05 65 10/04/16 13:00 93 10/04/16 12:14 98.1 87 18 129/75 99 10/04/16 12:13 80 10/04/16 11:26 92 10/04/16 10:00 76 10/04/16 09:25 111 I/O 10/04/16 10/04/16 10/04/16 10/05/16 10/05/16 10/05/16 07:00 15:00 23:00 07:00 15:00 23:00 Intake Total 480 ml 1080 ml 1268 ml Output Total 530 ml 1450 ml 250 ml Balance -50 ml -370 ml 1018 ml Intake Oral 480 ml 480 ml 480 ml IV Total 600 ml 788 ml Output Urine Total 530 ml 1450 ml 250 ml # Voids 2 Result Diagram: 10/05/16 0535 10/04/16 0510 Imaging Last Impressions Chest X-Ray 10/02/161920 Signed Impressions: Service Date/Time: Sunday, October 02, 2016 20:03 - CONCLUSION: Poor respiratory chest without evidence of significant airspace disease or acute congestion. Cardiomegaly with evidence of previous surgery. Orion Vences MD Objective Remarks GENERAL: This is a well-nourished, well-developed patient, in no apparent distress. CARDIOVASCULAR: Regular rate and regular rhythm without murmurs, gallops, or rubs. RESPIRATORY: Clear to auscultation. Breath sounds equal bilaterally. No wheezes , rales, or rhonchi. GASTROINTESTINAL: Abdomen soft, non-tender, nondistended. Normal, active bowel sounds MUSCULOSKELETAL: Extremities with bilateral pedal edema NEURO: Alert & Oriented x4 to person, place, time, situation. Procedures none Medications and IVs Current Medications IV Flush (NS Flush) 2 ml UNSCH PRN IVF FLUSH AFTER USING IV ACCESS Last administered on 10/02/16 20:56; Start 10/02/16 at 19:30; Stop 10/02/16 at 21:08; Status DC Furosemide (Lasix Inj) 80 mg ONCE ONCE IVP Last administered on 10/02/16 20:53 ; Start 10/02/16 at 19:30; Stop 10/02/16 at 19:31; Status DC IV Flush (NS Flush) 2 ml UNSCH PRN FLUSH FLUSH AFTER USING IV ACCESS; Start 10/02/16 at 21:00 IV Flush (NS Flush) 2 ml BID FLUSH Last administered on 10/04/16 22:35; Start 10/02/16 at 21:00 Ondansetron HCl (Zofran Inj) 4 mg Q6H PRN IVP NAUSEA OR VOMITING; Start at 21:00 Naloxone HCl (Narcan Inj) 0.4 mg UNSCH PRN IV SEE LABEL COMMENTS; Start at 21:00 Heparin Sodium (Porcine) (Heparin Inj) 5,000 units UNSCH PRN IV APTT LESS THAN 25; Start 10/03/16 at 03:00; Stop 10/04/16 at 12:10; Status DC Heparin Sodium (Porcine) 2500 units 2,500 units UNSCH PRN IV APTT 25 TO 39 Last administered on 10/03/16 23:52; Start 10/03/16 at 03:00; Stop 10/04/16 at 12: 10; Status DC Heparin Sodium/ Dextrose (Heparin-D5W Inj) 250 ml @ 0 mls/hr TITRATE IV Last administered on 10/03/16 17:19; Start 10/02/16 at 21:00; Stop 10/04/16 at 12:10; Status DC Nitroglycerin (Nitrostat Sl) 0.4 mg Q5M PRN SL CHEST PAIN; Start 10/02/16 at 21: 30 Pantoprazole Sodium (Protonix) 40 mg DAILY PO ; Start 10/03/16 at 09:00; Stop 10/03/16 at 09:00; Status DC Dextrose (D50w (Vial) Inj) 25 ml UNSCH PRN IV PUSH HYPOGLYCEMIA-SEE COMMENTS; Start 10/03/16 at 08:00; Stop 10/03/16 at 08:56; Status DC Glucagon (Glucagon Inj) 1 mg UNSCH PRN OTHER HYPOGLYCEMIA-SEE COMMENTS; Start 10/03/16 at 08:00; Stop 10/03/16 at 08:56; Status DC Aspirin (Aspirin Chew) 81 mg DAILY CHEW Last administered on 10/04/16 09:18; Start 10/03/16 at 09:00 Atorvastatin Calcium (Lipitor) 10 mg HS PO Last administered on 10/03/16 20:33 ; Start 10/03/16 at 21:00; Stop 10/04/16 at 14:10; Status DC Metoprolol Succinate (Toprol Xl) 50 mg DAILY PO Last administered on 10/04/16 09:18; Start 10/03/16 at 09:00; Stop 10/04/16 at 14:10; Status DC Pantoprazole Sodium (Protonix) 40 mg DAILY PO Last administered on 10/04/16 09: 18; Start 10/03/16 at 09:00 Dextrose (D50w (Vial) Inj) 25 ml UNSCH PRN IV PUSH HYPOGLYCEMIA-SEE COMMENTS; Start 10/03/16 at 08:00 Glucagon (Glucagon Inj) 1 mg UNSCH PRN OTHER HYPOGLYCEMIA-SEE COMMENTS; Start 10/03/16 at 08:00 Insulin Aspart 1 1 ACHS SLIDING SCALE SQ Last administered on 10/05/16 06:24; Start 10/03/16 at 11:00 Sodium Chloride (1/2 NS 1000 ml Inj) 1,000 ml @ 60 mls/hr [id number] IV Last administered on 10/04/16 17:20; Start 10/03/16 at 08:00 Furosemide (Lasix Inj) 40 mg DAILY IV PUSH Last administered on 10/04/16 09:21 ; Start 10/03/16 at 09:00 Apixaban (Eliquis) 2.5 mg BID PO Last administered on 10/04/16 22:35; Start 10/04/16 at 11:00 Isosorbide Mononitrate (Imdur) 30 mg DAILY PO Last administered on 10/04/16 12: 05; Start 10/04/16 at 11:00 Atorvastatin Calcium (Lipitor) 80 mg HS PO Last administered on 10/04/16 22:34 ; Start 10/04/16 at 21:00 Metoprolol Tartrate (Lopressor) 25 mg Q12HR PO ; Start 10/05/16 at 09:00 A/P Problem List: (1) Congestive heart failure ICD Code: I50.9 Status: Acute (2) Elevated troponin I level ICD Code: R74.8 Status: Acute Assessment and Plan A/P - NSTEMI resumed aspirin,added eliquis and imdur- continue statin and BB- cardiology consult appreciated. previously d/w who recommended medical management at this time. -Atrial fibrillation with rapid ventricular response- now HR is better controlled. resumed BB- on eliquis- cardiology consult as noted above- -CHF- acute on chronic systolic; started lasix; will switch to po in am- echo with EF 20-25%-- cardiology following. -diabetes mellitus; accu-check with SSI- -history of CVA and dyslipidemia; resumed aspirin and statin -chronic renal insufficiency; at his baseline- will monitor -hypertension; resumed BB- hold lisinopril for now -hypothyroidism; resumed home meds soon -DVT prophylaxis; on eliquis -PT consulted. Discharge Planning d/w the ; she wants to talk to case management regarding rehab. case management consulted for rehab. possible discharge early this week- if stable and cleared by cardiology. Problem Qualifiers (1) Congestive heart failure: Qualified Code: I50.23 - Acute on chronic systolic congestive heart failure Yanni Weinberg MD Oct 05, 2016 09:10
[2016-10-05] MEDS ORDERED: APIX2.5T PO (09:13)
[2016-10-05] MEDS ORDERED: LIPI80TA PO (09:13)
[2016-10-05] MEDS ORDERED: ISOS30TA3 PO (09:13)
[2016-10-05] MEDS ORDERED: METO25TA3 PO (09:13)
--- NOTE | 2016-10-05 09:13 | HHI.DCPOC ---
Discharge Care Plan Diagnosis: (1) NSTEMI (non-ST elevated myocardial infarction) Your Health Problems Are: Chest Pain Shortness of Breath Goals to Promote Your Health * To prevent worsening of your condition and complications * To maintain your health at the optimal level Directions to Meet Your Goals Take your medications as prescribed Follow your dietary instruction Follow activity as directed Keep your appointments as scheduled Take your immunizations and boosters as scheduled If your symptoms worsen call your PCP, if no PCP go to Urgent Care Center or Emergency Room Smoking is Dangerous to Your Health. Avoid second hand smoke Call the 24-hour hour crisis hotline for domestic abuse at Yanni Weinberg MD Oct 05, 2016 09:13
[2016-10-05] MEDS: FUROSEMIDE 40 MG/4 ML VIAL IV PUSH SCH (09:36)
[2016-10-05] MEDS: APIXABAN 2.5 MG TABLET PO SCH ×2 (09:36→21:25)
[2016-10-05] MEDS: PANTOPRAZOLE SOD 40 MG DELAYED RELEASE TAB PO SCH (09:36)
[2016-10-05] MEDS: ISOSORBIDE MONONITRATE 30 MG TAB PO SCH (09:36)
[2016-10-05] MEDS: SODIUM CHLORIDE 0.9% FLUSH 5 ML FLUSH FLUSH SCH ×2 (09:40→21:25)
[2016-10-05] MEDS: ASPIRIN 81 MG CHEW TAB CHEW SCH (09:40)
[2016-10-05] MEDS: SODIUM CHLOR 0.45% 1000 ML INJ 1,000 ML IV SCH (10:00)
[2016-10-05] MEDS: LISINOPRIL 5 MG TAB PO SCH (21:25)
[2016-10-05] MEDS: CARVEDILOL 6.25 MG TAB PO SCH (21:26)
[2016-10-05] MEDS: ATORVASTATIN 80 MG TAB PO SCH (21:26)
[2016-10-06] VITALS (24 sets, daily range): BP systolic 109–147; BP diastolic 56–84; PULSE 56–79; RESP 14–20; TEMP 97.4–98.5; O2SAT 96–100
[2016-10-06] MEDS: SODIUM CHLOR 0.45% 1000 ML INJ 1,000 ML IV SCH (02:40)
[2016-10-06 06:14] LABS: BICARBONATE 27.8 MEQ/L (21.0-32.0); FREE T4 1.16 NG/DL (0.76-1.46); MAGNESIUM 2.1 MG/DL (1.5-2.5); POTASSIUM 4.3 MEQ/L (3.5-5.1)
[2016-10-06] MEDS: INSULIN ASPART SUPPLEMENTAL SCALE SQ SCH ×4 (07:00→21:30)
[2016-10-06] MEDS: FUROSEMIDE 40 MG/4 ML VIAL IV PUSH SCH (08:56)
[2016-10-06] MEDS: LISINOPRIL 5 MG TAB PO SCH ×2 (08:56→21:28)
[2016-10-06] MEDS: APIXABAN 2.5 MG TABLET PO SCH ×2 (08:56→21:28)
[2016-10-06] MEDS: ASPIRIN 81 MG CHEW TAB CHEW SCH (08:56)
[2016-10-06] MEDS: CARVEDILOL 6.25 MG TAB PO SCH ×2 (08:56→21:29)
[2016-10-06] MEDS: ISOSORBIDE MONONITRATE 60 MG TAB PO SCH (08:56)
[2016-10-06] MEDS: SODIUM CHLORIDE 0.9% FLUSH 5 ML FLUSH FLUSH SCH ×2 (08:57→21:46)
[2016-10-06] MEDS: PANTOPRAZOLE SOD 40 MG DELAYED RELEASE TAB PO SCH (08:57)
--- NOTE | 2016-10-06 09:11 | HHI.PR ---
Subjective Remarks in no acute distress. no chest pain or sob. d/w the RN and no acute issues over night. Objective Vitals Vital Signs Date Time Temp Pulse Resp B/P Pulse Ox O2 Delivery O2 Flow Rate FiO2 10/06/16 07:00 65 10/06/16 06:00 56 10/06/16 05:00 60 10/06/16 04:00 62 10/06/16 03:00 62 10/06/16 03:00 98.5 66 14 139/84 97 10/06/16 02:00 58 10/06/16 01:00 60 10/06/16 00:00 60 10/05/16 23:00 98.5 67 16 116/80 95 10/05/16 23:00 64 10/05/16 22:00 62 10/05/16 21:00 60 10/05/16 20:00 66 10/05/16 19:00 98 Room Air 10/05/16 19:00 97.6 62 14 117/63 97 10/05/16 19:00 66 10/05/16 18:00 60 10/05/16 17:00 59 10/05/16 16:39 98.1 67 18 135/70 96 10/05/16 16:00 60 10/05/16 15:00 64 10/05/16 14:00 62 10/05/16 13:00 66 10/05/16 12:28 Room Air 10/05/16 12:00 60 10/05/16 11:00 57 10/05/16 11:00 98.0 60 18 112/63 97 10/05/16 10:00 70 10/05/16 09:43 97.6 67 20 158/87 94 I/O 10/05/16 10/05/16 10/05/16 10/06/16 10/06/16 10/06/16 07:00 15:00 23:00 07:00 15:00 23:00 Intake Total 1268 ml 1090 ml 1140 ml Output Total 250 ml 350 ml 1025 ml Balance 1018 ml 740 ml 115 ml Intake Oral 480 ml 480 ml 480 ml IV Total 788 ml 610 ml 660 ml Output Urine Total 250 ml 350 ml 1025 ml # Voids 2 # Bowel Movements 0 Result Diagram: 10/05/16 0535 10/06/16 0400 Imaging Last Impressions Chest X-Ray 3/1/17 1921 Signed Impressions: Service Date/Time: Sunday, October 02, 2016 20:03 - CONCLUSION: Poor respiratory chest without evidence of significant airspace disease or acute congestion. Cardiomegaly with evidence of previous surgery. Orion Vences MD Objective Remarks GENERAL: This is a well-nourished, well-developed patient, in no apparent distress. CARDIOVASCULAR: Regular rate and regular rhythm without murmurs, gallops, or rubs. RESPIRATORY: Clear to auscultation. Breath sounds equal bilaterally. No wheezes , rales, or rhonchi. GASTROINTESTINAL: Abdomen soft, non-tender, nondistended. Normal, active bowel sounds MUSCULOSKELETAL: Extremities with bilateral pedal edema NEURO: Alert & Oriented x4 to person, place, time, situation. Procedures none Medications and IVs Current Medications IV Flush (NS Flush) 2 ml UNSCH PRN IVF FLUSH AFTER USING IV ACCESS Last administered on 10/02/16 20:56; Start 10/02/16 at 19:30; Stop 10/02/16 at 21:08; Status DC Furosemide (Lasix Inj) 80 mg ONCE ONCE IVP Last administered on 10/02/16 20:53 ; Start 10/02/16 at 19:30; Stop 10/02/16 at 19:31; Status DC IV Flush (NS Flush) 2 ml UNSCH PRN FLUSH FLUSH AFTER USING IV ACCESS; Start 10/02/16 at 21:00 IV Flush (NS Flush) 2 ml BID FLUSH Last administered on 10/06/16 08:57; Start 10/02/16 at 21:00 Ondansetron HCl (Zofran Inj) 4 mg Q6H PRN IVP NAUSEA OR VOMITING; Start at 21:00 Naloxone HCl (Narcan Inj) 0.4 mg UNSCH PRN IV SEE LABEL COMMENTS; Start at 21:00 Heparin Sodium (Porcine) (Heparin Inj) 5,000 units UNSCH PRN IV APTT LESS THAN 25; Start 10/03/16 at 03:00; Stop 10/04/16 at 12:10; Status DC Heparin Sodium (Porcine) 2500 units 2,500 units UNSCH PRN IV APTT 25 TO 39 Last administered on 10/03/16 23:52; Start 10/03/16 at 03:00; Stop 10/04/16 at 12: 10; Status DC Heparin Sodium/ Dextrose (Heparin-D5W Inj) 250 ml @ 0 mls/hr TITRATE IV Last administered on 10/03/16 17:19; Start 10/02/16 at 21:00; Stop 10/04/16 at 12:10; Status DC Nitroglycerin (Nitrostat Sl) 0.4 mg Q5M PRN SL CHEST PAIN; Start 10/02/16 at 21: 30 Pantoprazole Sodium (Protonix) 40 mg DAILY PO ; Start 10/03/16 at 09:00; Stop 10/03/16 at 09:00; Status DC Dextrose (D50w (Vial) Inj) 25 ml UNSCH PRN IV PUSH HYPOGLYCEMIA-SEE COMMENTS; Start 10/03/16 at 08:00; Stop 10/03/16 at 08:56; Status DC Glucagon (Glucagon Inj) 1 mg UNSCH PRN OTHER HYPOGLYCEMIA-SEE COMMENTS; Start 10/03/16 at 08:00; Stop 10/03/16 at 08:56; Status DC Aspirin (Aspirin Chew) 81 mg DAILY CHEW Last administered on 10/06/16 08:56; Start 10/03/16 at 09:00 Atorvastatin Calcium (Lipitor) 10 mg HS PO Last administered on 10/03/16 20:33 ; Start 10/03/16 at 21:00; Stop 10/04/16 at 14:10; Status DC Metoprolol Succinate (Toprol Xl) 50 mg DAILY PO Last administered on 10/04/16 09:18; Start 10/03/16 at 09:00; Stop 10/04/16 at 14:10; Status DC Pantoprazole Sodium (Protonix) 40 mg DAILY PO Last administered on 10/06/16 08: 57; Start 10/03/16 at 09:00 Dextrose (D50w (Vial) Inj) 25 ml UNSCH PRN IV PUSH HYPOGLYCEMIA-SEE COMMENTS; Start 10/03/16 at 08:00 Glucagon (Glucagon Inj) 1 mg UNSCH PRN OTHER HYPOGLYCEMIA-SEE COMMENTS; Start 10/03/16 at 08:00 Insulin Aspart 1 1 ACHS SLIDING SCALE SQ Last administered on 10/06/16 07:00; Start 10/03/16 at 11:00 Sodium Chloride (1/2 NS 1000 ml Inj) 1,000 ml @ 60 mls/hr [id number] IV Last administered on 10/05/16 10:00; Start 10/03/16 at 08:00 Furosemide (Lasix Inj) 40 mg DAILY IV PUSH Last administered on 10/06/16 08:56 ; Start 10/03/16 at 09:00 Apixaban (Eliquis) 2.5 mg BID PO Last administered on 10/06/16 08:56; Start 10/04/16 at 11:00 Isosorbide Mononitrate (Imdur) 30 mg DAILY PO Last administered on 10/05/16 09: 36; Start 10/04/16 at 11:00; Stop 10/05/16 at 11:01; Status DC Atorvastatin Calcium (Lipitor) 80 mg HS PO Last administered on 10/05/16 21:26 ; Start 10/04/16 at 21:00 Metoprolol Tartrate (Lopressor) 25 mg Q12HR PO Last administered on 10/05/16 09 :36; Start 10/05/16 at 09:00; Stop 10/05/16 at 10:55; Status DC Carvedilol (Coreg) 6.25 mg BID PO Last administered on 10/06/16 08:56; Start at 21:00 Lisinopril (Prinivil) 5 mg BID PO Last administered on 10/06/16 08:56; Start at 21:00 Isosorbide Mononitrate (Imdur) 60 mg DAILY PO Last administered on 10/06/16 08: 56; Start 10/06/16 at 09:00 A/P Assessment and Plan A/P - NSTEMI resumed aspirin,added eliquis and imdur- continue statin and BB- cardiology consult appreciated. previously d/w who recommended medical management at this time. -Atrial fibrillation with rapid ventricular response- now HR is better controlled. resumed BB- on eliquis- cardiology consult as noted above- -CHF- acute on chronic systolic; started lasix; will switch to po in am- continue BB and lisinopril. echo with EF 20-25%-- cardiology following. -diabetes mellitus;resume long acting insulin. accu-check with SSI- -history of CVA and dyslipidemia; resumed aspirin and statin -chronic renal insufficiency; at his baseline- will monitor -hypertension; resumed BB- continue lisinopril -hypothyroidism; resumed home meds soon -DVT prophylaxis; on eliquis -PT consulted. Discharge Planning previously d/w the ; she wants to talk to case management regarding rehab. case management consulted for rehab. possible discharge early this week- if stable and cleared by cardiology. Yanni Weinberg MD Oct 06, 2016 09:11
[2016-10-06] MEDS ORDERED: DOCUSATE SODIUM 100 MG CAP PO PRN (10:15)
[2016-10-06] MEDS ORDERED: INSULIN DETEMIR 100 UNITS/ML VIAL SQ SCH (21:00)
[2016-10-06] MEDS: ATORVASTATIN 80 MG TAB PO SCH (21:28)
[2016-10-07] VITALS (13 sets, daily range): BP systolic 95–132; BP diastolic 56–60; PULSE 60–76; RESP 14–20; TEMP 98–98.1; O2SAT 96–97
[2016-10-07] MEDS: INSULIN ASPART SUPPLEMENTAL SCALE SQ SCH ×2 (06:26→11:29)
[2016-10-07] MEDS: ASPIRIN 81 MG CHEW TAB CHEW SCH (08:20)
[2016-10-07] MEDS: CARVEDILOL 6.25 MG TAB PO SCH (08:21)
[2016-10-07] MEDS: PANTOPRAZOLE SOD 40 MG DELAYED RELEASE TAB PO SCH (08:21)
[2016-10-07] MEDS: ISOSORBIDE MONONITRATE 60 MG TAB PO SCH (08:21)
[2016-10-07] MEDS: LISINOPRIL 5 MG TAB PO SCH (08:21)
[2016-10-07] MEDS: APIXABAN 2.5 MG TABLET PO SCH (08:21)
[2016-10-07] MEDS: SODIUM CHLORIDE 0.9% FLUSH 5 ML FLUSH FLUSH SCH (08:21)
[2016-10-07] MEDS ORDERED: FUROSEMIDE 20 MG TAB PO SCH (09:00)
--- NOTE | 2016-10-07 09:51 | HHI.FF ---
Face to Face Verification Diagnosis: (1) NSTEMI (non-ST elevated myocardial infarction) Physical Therapy Order: Evaluate and Treat Home Health Nursing Order: Medical education Signs/symptoms of disease process Medication education-adverse effect Nursing assessment with vital signs I have seen patient Jens Cheung Jr [place] on 10/07/16. My clinical findings support the need for the requested home health care services because: Ltd mobility - disease progression I certify that my clinical findings support that this patient is homebound because: Poor cardiac reserve Yanni Weinberg MD Oct 07, 2016 09:51
--- NOTE | 2016-10-07 09:51 | HHI.PR ---
Subjective Remarks in no acute distress. has occasional cough. afebrile. d/w the RN and no acute issues over night. at the bedside. Objective Vitals Vital Signs Date Time Temp Pulse Resp B/P Pulse Ox O2 Delivery O2 Flow Rate FiO2 10/07/16 08:00 97 Room Air 10/07/16 08:00 70 10/07/16 08:00 98.1 70 20 132/58 97 10/07/16 06:00 76 10/07/16 05:00 62 10/07/16 04:00 60 10/07/16 03:00 65 10/07/16 03:00 98.1 65 14 121/60 97 10/07/16 02:00 60 10/07/16 01:00 66 10/07/16 00:00 66 10/06/16 23:00 98.5 76 20 139/79 100 10/06/16 23:00 73 10/06/16 22:00 66 10/06/16 21:00 64 10/06/16 20:00 64 10/06/16 19:00 96 Room Air 10/06/16 19:00 98.2 65 18 132/71 96 10/06/16 19:00 65 10/06/16 18:08 62 10/06/16 17:12 61 10/06/16 16:00 62 10/06/16 16:00 97.5 61 16 114/57 97 10/06/16 15:00 61 10/06/16 14:00 68 10/06/16 13:00 68 10/06/16 12:00 68 10/06/16 12:00 97.4 79 18 109/56 97 10/06/16 11:00 76 10/06/16 10:00 66 I/O 10/06/16 10/06/16 10/06/16 10/07/16 10/07/16 10/07/16 07:00 15:00 23:00 07:00 15:00 23:00 Intake Total 1140 ml 480 ml 480 ml Output Total 1025 ml 700 ml 475 ml Balance 115 ml -700 ml 480 ml 5 ml Intake Oral 480 ml 480 ml 480 ml IV Total 660 ml Output Urine Total 1025 ml 700 ml 475 ml # Voids 3 2 # Bowel Movements 1 Result Diagram: 10/05/16 0535 10/06/16 0400 Imaging Last Impressions Chest X-Ray 10/02/161920 Signed Impressions: Service Date/Time: Sunday, October 02, 2016 20:03 - CONCLUSION: Poor respiratory chest without evidence of significant airspace disease or acute congestion. Cardiomegaly with evidence of previous surgery. Orion Vences MD Objective Remarks GENERAL: This is a well-nourished, well-developed patient, in no apparent distress. CARDIOVASCULAR: Regular rate and regular rhythm without murmurs, gallops, or rubs. RESPIRATORY: Clear to auscultation. Breath sounds equal bilaterally. No wheezes , rales, or rhonchi. GASTROINTESTINAL: Abdomen soft, non-tender, nondistended. Normal, active bowel sounds MUSCULOSKELETAL: Extremities with bilateral pedal edema NEURO: Alert & Oriented x4 to person, place, time, situation. Procedures none Medications and IVs Current Medications IV Flush (NS Flush) 2 ml UNSCH PRN IVF FLUSH AFTER USING IV ACCESS Last administered on 10/02/16 20:56; Start 10/02/16 at 19:30; Stop 10/02/16 at 21:08; Status DC Furosemide (Lasix Inj) 80 mg ONCE ONCE IVP Last administered on 10/02/16 20:53 ; Start 10/02/16 at 19:30; Stop 10/02/16 at 19:31; Status DC IV Flush (NS Flush) 2 ml UNSCH PRN FLUSH FLUSH AFTER USING IV ACCESS; Start 10/02/16 at 21:00 IV Flush (NS Flush) 2 ml BID FLUSH Last administered on 10/07/16 08:21; Start 10/02/16 at 21:00 Ondansetron HCl (Zofran Inj) 4 mg Q6H PRN IVP NAUSEA OR VOMITING; Start at 21:00 Naloxone HCl (Narcan Inj) 0.4 mg UNSCH PRN IV SEE LABEL COMMENTS; Start at 21:00 Heparin Sodium (Porcine) (Heparin Inj) 5,000 units UNSCH PRN IV APTT LESS THAN 25; Start 10/03/16 at 03:00; Stop 10/04/16 at 12:10; Status DC Heparin Sodium (Porcine) 2500 units 2,500 units UNSCH PRN IV APTT 25 TO 39 Last administered on 10/03/16 23:52; Start 10/03/16 at 03:00; Stop 10/04/16 at 12: 10; Status DC Heparin Sodium/ Dextrose (Heparin-D5W Inj) 250 ml @ 0 mls/hr TITRATE IV Last administered on 10/03/16 17:19; Start 10/02/16 at 21:00; Stop 10/04/16 at 12:10; Status DC Nitroglycerin (Nitrostat Sl) 0.4 mg Q5M PRN SL CHEST PAIN; Start 10/02/16 at 21: 30 Pantoprazole Sodium (Protonix) 40 mg DAILY PO ; Start 10/03/16 at 09:00; Stop 10/03/16 at 09:00; Status DC Dextrose (D50w (Vial) Inj) 25 ml UNSCH PRN IV PUSH HYPOGLYCEMIA-SEE COMMENTS; Start 10/03/16 at 08:00; Stop 10/03/16 at 08:56; Status DC Glucagon (Glucagon Inj) 1 mg UNSCH PRN OTHER HYPOGLYCEMIA-SEE COMMENTS; Start 10/03/16 at 08:00; Stop 10/03/16 at 08:56; Status DC Aspirin (Aspirin Chew) 81 mg DAILY CHEW Last administered on 10/07/16 08:20; Start 10/03/16 at 09:00 Atorvastatin Calcium (Lipitor) 10 mg HS PO Last administered on 10/03/16 20:33 ; Start 10/03/16 at 21:00; Stop 10/04/16 at 14:10; Status DC Metoprolol Succinate (Toprol Xl) 50 mg DAILY PO Last administered on 10/04/16 09:18; Start 10/03/16 at 09:00; Stop 10/04/16 at 14:10; Status DC Pantoprazole Sodium (Protonix) 40 mg DAILY PO Last administered on 10/07/16 08: 21; Start 10/03/16 at 09:00 Dextrose (D50w (Vial) Inj) 25 ml UNSCH PRN IV PUSH HYPOGLYCEMIA-SEE COMMENTS; Start 10/03/16 at 08:00 Glucagon (Glucagon Inj) 1 mg UNSCH PRN OTHER HYPOGLYCEMIA-SEE COMMENTS; Start 10/03/16 at 08:00 Insulin Aspart 1 1 ACHS SLIDING SCALE SQ Last administered on 10/07/16 06:26; Start 10/03/16 at 11:00 Sodium Chloride (1/2 NS 1000 ml Inj) 1,000 ml @ 60 mls/hr [id number] IV Last administered on 10/05/16 10:00; Start 10/03/16 at 08:00; Stop 10/06/16 at 09:08; Status DC Furosemide (Lasix Inj) 40 mg DAILY IV PUSH Last administered on 10/06/16 08:56 ; Start 10/03/16 at 09:00; Stop 10/06/16 at 09:12; Status DC Apixaban (Eliquis) 2.5 mg BID PO Last administered on 10/07/16 08:21; Start 10/04/16 at 11:00 Isosorbide Mononitrate (Imdur) 30 mg DAILY PO Last administered on 10/05/16 09: 36; Start 10/04/16 at 11:00; Stop 10/05/16 at 11:01; Status DC Atorvastatin Calcium (Lipitor) 80 mg HS PO Last administered on 10/06/16 21:28 ; Start 10/04/16 at 21:00 Metoprolol Tartrate (Lopressor) 25 mg Q12HR PO Last administered on 10/05/16 09 :36; Start 10/05/16 at 09:00; Stop 10/05/16 at 10:55; Status DC Carvedilol (Coreg) 6.25 mg BID PO Last administered on 10/07/16 08:21; Start at 21:00 Lisinopril (Prinivil) 5 mg BID PO Last administered on 10/07/16 08:21; Start at 21:00 Isosorbide Mononitrate (Imdur) 60 mg DAILY PO Last administered on 10/07/16 08: 21; Start 10/06/16 at 09:00 Insulin Detemir (Levemir Inj) 10 units HS SQ Last administered on 10/06/16 21: 29; Start 10/06/16 at 21:00 Furosemide (Lasix) 20 mg DAILY PO Last administered on 10/07/16 08:21; Start at 09:00 Docusate Sodium (Colace) 100 mg BID PRN PO CONSTIPATION Last administered on 3/ 5/17at 11:16; Start 10/06/16 at 10:15 A/P Assessment and Plan A/P - NSTEMI resumed aspirin,added eliquis and imdur- continue statin and BB- cardiology consult appreciated. previously d/w who recommended medical management at this time. -Atrial fibrillation with rapid ventricular response- now HR is better controlled. resumed BB- on eliquis- cardiology consult as noted above- -CHF- acute on chronic systolic; started lasix; will switch to po upon discharge - continue BB and lisinopril. echo with EF 20-25%-- cardiology following. -diabetes mellitus;resume long acting insulin upon discharge. accu-check with SSI- -history of CVA and dyslipidemia; resumed aspirin and statin -chronic renal insufficiency; at his baseline- will monitor -hypertension; resumed BB- continue lisinopril -hypothyroidism; resumed home meds soon -DVT prophylaxis; on eliquis -PT consulted. Discharge Planning d/w the patient's ; rehab was offered but she wants to take him home with [facility]. dc home when ok with cardiology. see med list. d/w the RN. Yanni Weinberg MD Oct 07, 2016 09:51
--- NOTE | 2016-10-07 09:52 | HHI.DS ---
Discharge Summary Admission Date Oct 02, 2016 at 21:07 Discharge Date: Oct 07, 2016 Admitting Diagnosis acute coronary syndrome, CHF (1) Congestive heart failure ICD Code: I50.9 Diagnosis: Principal (2) Elevated troponin I level ICD Code: R74.8 Diagnosis: Principal (3) Atrial fibrillation and flutter ICD Code: I48.91 Diagnosis: Principal Procedures none Brief History - From Admission History from patient, ER physician communication, and review of medical records. Patient is somewhat of a poor historian. 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 However he is able to answer questions by stating yes or no. When asked whether he came to hospital because he was short of breath, he stated yes. He also reports of chest pain. Denies radiation to his arms or neck. Denies any nausea or vomiting. Denies any abdominal pains. Denies any diarrhea. Denies any black color stools or red color stools. Denies any urinary burning or pain on urination or blood in his urine. Denies fever. The patient initially presented to [facility] emergency room. Workup there revealed elevated BNP, with elevated troponin levels. When asked about a prior history of CAD, patient showed me his midline surgical scar. When asked whether this was a bypass, he nodded. Also reports of left carotid artery surgery. Patient is noted to be swelling in his lower extremity and his right upper extremity. When asked about whether the lower extremities have been swelling more and more in past few days, patient stated yes. Right upper extremity swelling is chronic according to him. He is not able to move his right upper extremity because of his previous CVA. When asked whether he walks at home, he stated no. He is on wheelchair at home. CBC/BMP: 10/05/16 0535 10/06/16 0400 Significant Findings Laboratory Tests Test 10/05/16 10/06/16 05:35 04:00 Red Blood Count 3.71 MIL/MM3 (4.50-5.90) Hemoglobin 11.4 GM/DL (13.0-17.0) Hematocrit 33.7 % (39.0-51.0) Blood Urea Nitrogen 30 MG/DL (7-18) Creatinine 1.59 MG/DL (0.60-1.30) Estimat Glomerular Filtration 43 ML/MIN (>89) Rate Random Glucose 266 MG/DL (74-106) Imaging Last Impressions Chest X-Ray 10/02/161920 Signed Impressions: Service Date/Time: Sunday, October 02, 2016 20:03 - CONCLUSION: Poor respiratory chest without evidence of significant airspace disease or acute congestion. Cardiomegaly with evidence of previous surgery. Orion Vences MD PE at Discharge GENERAL: This is a well-nourished, well-developed patient, in no apparent distress. CARDIOVASCULAR: Regular rate and regular rhythm without murmurs, gallops, or rubs. RESPIRATORY: Clear to auscultation. Breath sounds equal bilaterally. No wheezes , rales, or rhonchi. GASTROINTESTINAL: Abdomen soft, non-tender, nondistended. Normal, active bowel sounds MUSCULOSKELETAL: Extremities with bilateral pedal edema NEURO: Alert & Oriented x4 to person, place, time, situation. Hospital Course - NSTEMI resumed aspirin,added eliquis and imdur- continue statin and BB- cardiology consult appreciated. previously d/w who recommended medical management at this time. -Atrial fibrillation with rapid ventricular response- now HR is better controlled. resumed BB- on eliquis- cardiology consult as noted above- -CHF- acute on chronic systolic; started lasix; will switch to po upon discharge - continue BB and lisinopril. echo with EF 20-25%-- cardiology following. -diabetes mellitus;resume long acting insulin upon discharge. accu-check with SSI- -history of CVA and dyslipidemia; resumed aspirin and statin -chronic renal insufficiency; at his baseline- will monitor -hypertension; resumed BB- continue lisinopril -hypothyroidism; resumed home meds soon -DVT prophylaxis; on eliquis -PT consulted. Pt Condition on Discharge: Fair Discharge Disposition: Disch w/ Home Health Serv Discharge Time: <= 30 minutes Discharge Instructions DIET: Follow Instructions for: Heart Healthy Diet, Diabetic Diet Activities you can perform: Regular-No Restrictions Follow up Referrals: Cardiology PCP Follow-up with Jose Juan Rubin MD New Medications: Apixaban (Eliquis) 2.5 Mg Tab 2.5 MG PO BID a-fib Days 30 Ref 0 TAB Atorvastatin (Lipitor) 80 Mg Tab 80 MG PO HS dyslipidemia Days 30 Ref 0 TAB Isosorbide Mononitrate ER (Isosorbide Mononitrate ER) 30 Mg Louis 30 MG PO DAILY cad Days 30 Ref 0 TAB Metoprolol Tartrate (Metoprolol Tartrate) 25 Mg Tab 25 MG PO Q12HR cad Days 30 Ref 0 TAB Continued Medications: Aspirin (Aspirin) 81 Mg Chew 81 MG CHEW DAILY Ref 0 TAB Fenofibrate (Fenofibrate) 145 Mg Tab 145 MG PO DAILY #30 Ref 0 TAB Ferrous Sulfate (Iron) 325 Mg Tab 325 MG PO DAILY Take Nutritional Supplement Ref 0 TAB Furosemide (Furosemide) 20 Mg Tab 20 MG PO DAILY #30 Ref 0 TAB Glipizide ER (Glipizide XL) 10 Mg Louis 10 MG PO BID Take with breakfast or first main meal of the day Blood Sugar Management #30 Ref 0 TAB Insulin Glargine Inj (Lantus Inj) 100 Unit/Ml Inj 45 UNITS SQ AC DINNER Levothyroxine (Levothyroxine) 25 Mcg Tab 25 MCG PO DAILY Thyroid #30 Ref 0 TAB Lisinopril (Lisinopril) 10 Mg Tab 10 MG PO HS #30 Ref 0 TAB [place]-3 Fatty Acids (Fish Oil 1000 mg) 1 Cap Cap 1 CAP PO BID Pantoprazole (Pantoprazole) 40 Mg Tab 40 MG PO DAILY Reflux #30 Ref 0 TAB Sertraline (Sertraline) 25 Mg Tab 25 MG PO DAILY #30 Ref 0 TAB Sertraline (Sertraline) 50 Mg Tab 50 MG PO DAILY #30 Ref 0 TAB Sitagliptin (Januvia) 100 Mg Tab 100 MG PO DAILY Blood Sugar Management #30 Ref 0 TAB Tamsulosin (Tamsulosin) 0.4 Mg Cap 0.4 MG PO HS Manage Prostate Problems #30 Ref 0 CAP Tizanidine (Tizanidine) 4 Mg Cap 4 MG PO DAILY Muscle Spasm Ref 0 CAP Discontinued Medications: Atorvastatin (Atorvastatin) 10 Mg Tab 10 MG PO HS Cholesterol Management #30 Ref 0 TAB Clopidogrel (Clopidogrel) 75 Mg Tab 75 MG PO DAILY Blood Clot Prevention #30 Ref 0 TAB Lisinopril (Lisinopril) 20 Mg Tab 20 MG PO AC BREAKFAST #30 Ref 0 TAB Metoprolol Succinate ER 24 HR (Metoprolol Succinate ER 24 HR) 50 Mg Tab 50 MG PO DAILY #30 Ref 0 TAB Yanni Weinberg MD Oct 07, 2016 09:52
[2016-10-07] MEDS ORDERED: ISOS60TA PO (09:56)
[2016-10-07] MEDS ORDERED: CARV6.25 PO (09:56)
[2016-10-07] MEDS ORDERED: LISI-519 PO (09:56)
--- NOTE | 2016-10-07 14:21 | PD.CARD.PN ---
Subjective Subjective Remarks The patient denies acute complaints. at bedside. Objective Medications Current Medications Medications (Trade) Dose Ordered Sig/Jonathan Route Start Time Stop Time Status Last Admin (NS Flush) 2 ml UNSCH PRN FLUSH 10/02/16 21:00 (NS Flush) 2 ml BID FLUSH 10/02/16 21:00 10/07/16 08:21 (Zofran Inj) 4 mg Q6H PRN IVP 10/02/16 21:00 (Narcan Inj) 0.4 mg UNSCH PRN IV 10/02/16 21:00 (Nitrostat Sl) 0.4 mg Q5M PRN SL 10/02/16 21:30 (Aspirin Chew) 81 mg DAILY CHEW 10/03/16 09:00 10/07/16 08:20 (Protonix) 40 mg DAILY PO 10/03/16 09:00 10/07/16 08:21 (D50w (Vial) Inj) 25 ml UNSCH PRN IV PUSH 10/03/16 08:00 (Glucagon Inj) 1 mg UNSCH PRN OTHER 10/03/16 08:00 (Eliquis) 2.5 mg BID PO 10/04/16 11:00 10/07/16 08:21 (Lipitor) 80 mg HS PO 10/04/16 21:00 10/06/16 21:28 (Coreg) 6.25 mg BID PO 10/05/16 21:00 10/07/16 08:21 (Prinivil) 5 mg BID PO 10/05/16 21:00 10/07/16 08:21 (Imdur) 60 mg DAILY PO 10/06/16 09:00 10/07/16 08:21 (Levemir Inj) 10 units HS SQ 10/06/16 21:00 10/06/16 21:29 (Lasix) 20 mg DAILY PO 10/07/16 09:00 10/07/16 08:21 (Colace) 100 mg BID PRN PO 10/06/16 10:15 10/06/16 11:16 Vital Signs / I&O Vital Signs Date Time Temp Pulse Resp B/P Pulse Ox O2 Delivery O2 Flow Rate FiO2 10/07/16 13:11 69 10/07/16 12:42 64 10/07/16 11:15 96 Room Air 10/07/16 11:15 69 3/6/17 11:15 98.0 73 18 95/56 96 10/07/16 10:02 71 10/07/16 08:00 97 Room Air 10/07/16 08:00 70 10/07/16 08:00 98.1 70 20 132/58 97 10/07/16 06:00 76 10/07/16 05:00 62 10/07/16 04:00 60 10/07/16 03:00 65 10/07/16 03:00 98.1 65 14 121/60 97 10/07/16 02:00 60 10/07/16 01:00 66 10/07/16 00:00 66 10/06/16 23:00 98.5 76 20 139/79 100 10/06/16 23:00 73 10/06/16 22:00 66 10/06/16 21:00 64 10/06/16 20:00 64 10/06/16 19:00 96 Room Air 10/06/16 19:00 98.2 65 18 132/71 96 10/06/16 19:00 65 10/06/16 18:08 62 10/06/16 17:12 61 10/06/16 16:00 62 10/06/16 16:00 97.5 61 16 114/57 97 10/06/16 15:00 61 I/O 10/06/16 10/06/16 10/06/16 10/07/16 10/07/16 10/07/16 07:00 15:00 23:00 07:00 15:00 23:00 Intake Total 1140 ml 480 ml 480 ml Output Total 1025 ml 700 ml 475 ml Balance 115 ml -700 ml 480 ml 5 ml Intake Oral 480 ml 480 ml 480 ml IV Total 660 ml Output Urine Total 1025 ml 700 ml 475 ml # Voids 3 2 # Bowel Movements 1 Physical Exam GENERAL: Elderly, obese male SKIN: Warm and dry. HEAD: Normocephalic. EYES: No scleral icterus. No injection or drainage. NECK: Supple, trachea midline. CARDIOVASCULAR: Regular rate and rhythm without murmurs, gallops, or rubs. RESPIRATORY: Breath sounds equal bilaterally. No accessory muscle use. GASTROINTESTINAL: Abdomen soft, non-tender, nondistended. MUSCULOSKELETAL: No cyanosis, Left lower extremity well demarcated erythema BACK: Nontender without obvious deformity. Assessment and Plan Problem List: (1) Congestive heart failure (2) NSTEMI (non-ST elevated myocardial infarction) (3) Atrial fibrillation and flutter (4) Cardiomyopathy, ischemic (5) CAD (coronary artery disease) (6) Hx of CABG (7) CKD (chronic kidney disease) (8) H/O: CVA (cerebrovascular accident) (9) DM (diabetes mellitus) (10) HTN (hypertension) Assessment and Plan Based on the patient's multiple comorbidities, the patient, his family and Dr. Freedman agreed to conservative management. The patient is clear from cardiac standpoint for discharge. Continue ASA, Eliquis, BB, JAGRUTI, Imdur, lasix. He has a follow up appt scheduled for October 22, 2016. Instructed to call the office with questions or acute changes. Assessment and plan discussed with Dr Das Problem Qualifiers (1) Congestive heart failure: Qualified Code: I50.23 - Acute on chronic systolic congestive heart failure Lyn Barillas Oct 07, 2016 14:20
== END 2016-10-07 15:18 | disposition home health service (06) | DRG 280 ==
LOC: PHED 18:51 → PHEDA 21:07 → HCIN 10-03 01:31
PROVIDERS: ADMIT Internal Medicine; ATTEND Internal Medicine
DX: I21.4 Non-ST elevation (NSTEMI) myocardial infarction (principal); I50.23 Acute on chronic systolic (congestive) heart failure; E11.22 Type 2 diabetes mellitus with diabetic chronic kidney disease; I48.92 Unspecified atrial flutter; I69.351 Hemiplegia and hemiparesis following cerebral infarction affecting right dominant side; J44.9 Chronic obstructive pulmonary disease, unspecified; I48.91 Unspecified atrial fibrillation; I25.10 Atherosclerotic heart disease of native coronary artery without angina pectoris; I12.9 Hypertensive chronic kidney disease with stage 1 through stage 4 chronic kidney disease, or unspecified chronic kidney disease; E78.00 Pure hypercholesterolemia, unspecified; N18.9 Chronic kidney disease, unspecified; Z79.4 Long term (current) use of insulin; Z85.828 Personal history of other malignant neoplasm of skin; I69.320 Aphasia following cerebral infarction; E78.5 Hyperlipidemia, unspecified; Z95.1 Presence of aortocoronary bypass graft; E03.9 Hypothyroidism, unspecified; Z87.442 Personal history of urinary calculi; Z95.5 Presence of coronary angioplasty implant and graft; I25.5 Ischemic cardiomyopathy
CPT/HCPCS: 71020; 76937; 80048; 80053; 80061; 81001; 82550; 82948; 83735; 83880; 84100; 84439; 84443; 84484; 85025; 85027; 85610; 85730; 93005; 93306; 96374; J1644; J1815; J1940

== ENCOUNTER → 2016-10-25 | Outpatient (CLI) | payer MEDICARE, OTHER ==
[~2016-10-25] MED LIST changes: +APIX2.5T PO; -ASPI81 PO; +ASPI81CH CHEW; -ATOR10 PO; +CARV6.25 PO; -CINN500C7 PO; -CLOP75 PO; +FENO145T2 PO; -FENO50TA PO; +FERR1TAB36 PO; -FISH1000 PO; +FURO20TA PO; +GLIP10TA67 PO; -GLIP1TAB18 PO; -IRON18TA2 PO; +ISOS60TA PO; -LANTINJ SC; +LANTUS2P SQ; -LASI20TA PO; +LEVO25TA4 PO; +LIPI80TA PO; -LISI-360 PO; +LISI-519 PO; +OMEG100037 PO; +PANT40TA3 PO; -PROT40TA PO; +SERT-132 PO; +SERT25TA83 PO; -SERT50 PO; -SITA100 PO; +SITA1TAB2 PO; -SULF1SOL4 RIGHT EYE; -SYNT25TA PO; -TAB-TAB PO; +TAMS0.4C4 PO; -TAMS0.4C67 PO; -TIZA4CAP PO; +TIZA4CAP3 PO; -TOPR50TA PO; -ZITH500T PO
[2016-10-25 10:56] LABS: AUTOMATED NEUTROPHIL # 5.2 TH/MM3 (1.8-7.7); BASOPHIL # 0.1 TH/MM3 (0-0.2); BASOPHIL % 0.8 % (0.0-2.0); EOSINOPHIL # 0.1 TH/MM3 (0-0.4); EOSINOPHIL % 1.7 % (0.0-4.0); HEMATOCRIT 34.8 % (39.0-51.0); HEMO FLAGS DIFF FINAL; LYMPH % 20.5 % (9.0-44.0); LYMPHOCYTE # 1.5 TH/MM3 (1.0-4.8); MEAN CELL VOLUME 90.9 FL (80.0-100.0); MEAN CORPUSCULAR HEMOGLOBIN 29.7 PG (27.0-34.0); MEAN CORPUSCULAR HGB CONC 32.7 % (32.0-36.0); MONO % 7.5 % (0.0-8.0); NEUT % 69.5 % (16.0-70.0); PLATELET COUNT 198 TH/MM3 (150-450); RED BLOOD COUNT 3.82 MIL/MM3 (4.50-5.90); RED CELL DISTRIBUTION WIDTH 14.6 % (11.6-17.2); WHITE BLOOD COUNT 7.4 TH/MM3 (4.0-11.0)
[2016-10-25 11:21] LABS: ANION GAP 8 MEQ/L (5-15); AST (GOT) 13 U/L (15-37); BICARBONATE 29.3 MEQ/L (21.0-32.0); BLOOD UREA NITROGEN 28 MG/DL (7-18); CHLORIDE 102 MEQ/L (98-107); GLOMERULAR FILTRATION RATE 47 ML/MIN (>89); GLUCOSE,FASTING 141 MG/DL (74-99); POTASSIUM 4.3 MEQ/L (3.5-5.1); SODIUM (NA) 139 MEQ/L (136-145)
[2016-10-25 11:24] LABS: ALKALINE PHOSPHATASE 43 U/L (45-117); ALT (GPT) 25 U/L (12-78); TOTAL BILIRUBIN ADULT 0.4 MG/DL (0.2-1.0)
== END ==
LOC: CLAB 10:35
PROVIDERS: ATTEND Internal Medicine Interventional Cardiology
DX: E78.00 Pure hypercholesterolemia, unspecified (principal); E78.5 Hyperlipidemia, unspecified; D64.9 Anemia, unspecified; I10 Essential (primary) hypertension; Z01.01 Encounter for examination of eyes and vision with abnormal findings; Z79.891 Long term (current) use of opiate analgesic
CPT/HCPCS: 36415; 80053; 85025

== ENCOUNTER 2017-06-18 18:26 | Emergency (ER) | payer MEDICARE, OTHER ==
[~2017-06-18] VITALS: Ht 172.7 cm; Wt 120.0 kg
[~2017-06-18 18:26] MED LIST changes: +ASPI-516 CHEW; -ASPI81CH CHEW; -GLIP10TA67 PO; +GLIP1TAB52 PO
[2017-06-18 18:30] VITALS: BP 189/80; PULSE 82; RESP 20; TEMP 98.3; O2SAT 99
--- NOTE | 2017-06-18 19:01 | PD ---
HPI Chief Complaint: Abnormal Results Time Seen by Provider: 18:38 Travel History International Travel<30 days: No Contact w/Intl Traveler<30days: No Traveled to known affect area: No History of Present Illness HPI 76-year-old male presents to the emergency department sent by [facility] urgent care for swelling, cellulitis to the right lower extremity. 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 He has a phasic with right upper extremity flaccidity and right leg weakness. Patient wears a brace on the right leg which has rubbed against the right leg causing a blister that has now ruptured and is an abrasion. The patient has chronic skin changes to bilateral lower extremities. He denies any fevers or chills. No chest pain or shortness of breath. No abdominal pain. No nausea, vomiting, diarrhea. Patient is from [place] and lives here in the winter. Severity is mild to moderate. No alleviating or exacerbating factors. Patient's reports that he has chronic bilateral lower extremity swelling with history of CHF and is on furosemide. However, the swelling to the right lower extremity has been worse than normal. He is on Eliquis. PFSH Past Medical History Hx Anticoagulant Therapy: Yes Heart Rhythm Problems: Yes (NEW ONSET A-FIB 09/2016) Cancer: Yes (SKIN LESIONS REMOVED FROM FACE) Cardiovascular Problems: Yes High Cholesterol: Yes Chemotherapy: No Cerebrovascular Accident: Yes Diabetes: Yes Diminished Hearing: No Genitourinary: Yes (HAS SEEN KIDNEY ) Hypertension: Yes Immune Disorder: No Musculoskeletal: Yes (RIGHT ARM FLACID, RIGHT LEG WEAK/HX CVA) Neurologic: Yes (BROCAS APHASIA) Psychiatric: No Reproductive: No Respiratory: Yes Radiation Therapy: No Thyroid Disease: Yes (ON THYROXINE) Past Surgical History Abdominal Surgery: Yes (GALL STONES REMOVED ENDOSCOPICALLY 2006) AICD: No Arteriovenous Shunt: No Body Medical Devices: STENTS Cardiac Surgery: Yes (STENTS: CAROTID 2009, CARDIAC 1997, CABG 1995) Coronary Artery Bypass Graft: Yes Genitourinary Surgery: Yes (KIDNEY STENTS) Insulin Pump: No Joint Replacement: No Pacemaker: No Other Surgery: Yes (carotid stent, right) Social History Alcohol Use: No Tobacco Use: No Substance Use: No Allergies-Medications (Allergen,Severity, Reaction): Coded Allergies: No Known Allergies (Verified Adverse Reaction, Unknown, 06/18/17) Reported Meds & Prescriptions Reported Meds & Active Scripts Active Isosorbide Mononitrate ER (Isosorbide Mononitrate) 60 Mg Tab 60 Mg PO DAILY 30 Days Coreg (Carvedilol) 6.25 Mg Tab 6.25 Mg PO BID 30 Days Lipitor (Atorvastatin Calcium) 80 Mg Tab 80 Mg PO HS 30 Days Eliquis (Apixaban) 2.5 Mg Tab 2.5 Mg PO BID 30 Days Reported Nitrostat SL (Nitroglycerin) 0.4 Mg Subl 0.4 Mg SL DIRECTED PRN 1 tablet under the tongue as needed for chest pain. Repeat every 5 minutes for a total of 3 DOSES or call 911 if NO relief. Ferrous Sulfate 325 Mg (65 Mg Iron) Tablet 325 Mg PO DAILY Eql Cinnamon (Cinnamon) 500 Mg Cap 1,000 Mg PO DAILY Centrum (Multiple Vitamins W/ Minerals) 1 Chew 1 Tab CHEW DAILY Sertraline (Sertraline HCl) 50 Mg Tab 75 Mg PO DAILY [place]-3 Fish Oil/Vitamin (Fish Oil-Cholecalciferol) 1,000-1,000 Mg Cap 1 Cap PO BID Lisinopril 10 Mg Tab 10 Mg PO BID Refresh Opth Drops (Polyvinyl Alcohol-Povidone Opth Drops) 1.4-0.6% Drops 1 Drop EACH EYE PRN PRN Furosemide 40 Mg Tab 40 Mg PO DAILY Lantus Inj (Insulin Glargine) 100 Unit/Ml Inj 45 Units SQ AC DINNER Aspirin 81 Mg Chew 81 Mg CHEW DAILY Tizanidine (Tizanidine HCl) 4 Mg Cap 4 Mg PO DAILY Tamsulosin (Tamsulosin HCl) 0.4 Mg Cap 0.4 Mg PO HS Januvia (Sitagliptin Phosphate) 100 Mg Tab 100 Mg PO DAILY Levothyroxine (Levothyroxine Sodium) 25 Mcg Tab 25 Mcg PO DAILY Glipizide XL (Glipizide) 10 Mg Louis 10 Mg PO BID Take with breakfast or first main meal of the day Fenofibrate 145 Mg Tab 145 Mg PO DAILY Review of Systems Except as stated in HPI: all other systems reviewed are Neg Physical Exam Narrative GENERAL: Well-nourished, well-developed male patient, afebrile. SKIN: Focused skin assessment warm/dry. Patient has small abrasion to the right medial lower leg and abrasion to the left anterior lower leg. Patient has chronic skin changes noted bilaterally. HEAD: Normocephalic. Atraumatic. EYES: No scleral icterus. No injection or drainage. NECK: Supple, trachea midline. No JVD or lymphadenopathy. CARDIOVASCULAR: Regular rate and rhythm without murmurs, gallops, or rubs. Bilateral pedal pulses are 2+. RESPIRATORY: Breath sounds equal bilaterally. No accessory muscle use. Lungs sounds are clear to auscultation. GASTROINTESTINAL: Abdomen soft, non-tender, nondistended. MUSCULOSKELETAL: No cyanosis 3+ lower extremity edema to the right leg is 2+ lower extremity edema to the left leg. BACK: Nontender without obvious deformity. No CVA tenderness. Data Data Last Documented VS Vital Signs Date Time Temp Pulse Resp B/P (MAP) Pulse Ox O2 Delivery O2 Flow Rate FiO2 06/18/17 18:30 98.3 82 20 189/80 (116) 99 Room Air Orders Orders Complete Blood Count With Diff (06/18/17 18:55) Iv Access Insert/Monitor (06/18/17 18:55) Basic Metabolic Panel (Bmp) (06/18/17 18:55) Act Partial Throm Time (Ptt) (06/18/17 18:55) Prothrombin Time / Inr (Pt) (06/18/17 18:55) Us Leg Venous Doppler Bilat (06/18/17 ) Sulfamet-Trimeth Ds 800-160 Mg (Bactrim (06/18/17 21:30) Cephalexin (Keflex) (06/18/17 21:30) Labs Laboratory Tests Test 06/18/17 19:35 White Blood Count 10.1 TH/MM3 Red Blood Count 3.67 MIL/MM3 Hemoglobin 11.4 GM/DL Hematocrit 34.2 % Mean Corpuscular Volume 93.3 FL Mean Corpuscular Hemoglobin 30.9 PG Mean Corpuscular Hemoglobin Concent 33.2 % Red Cell Distribution Width 14.4 % Platelet Count 225 TH/MM3 Mean Platelet Volume 7.9 FL Neutrophils (%) (Auto) 70.0 % Lymphocytes (%) (Auto) 19.3 % Monocytes (%) (Auto) 8.0 % Eosinophils (%) (Auto) 1.8 % Basophils (%) (Auto) 0.9 % Neutrophils # (Auto) 7.1 TH/MM3 Lymphocytes # (Auto) 2.0 TH/MM3 Monocytes # (Auto) 0.8 TH/MM3 Eosinophils # (Auto) 0.2 TH/MM3 Basophils # (Auto) 0.1 TH/MM3 CBC Comment DIFF FINAL Differential Comment Prothrombin Time 11.4 SEC Prothromb Time International Ratio 1.0 RATIO Activated Partial Thromboplast Time 21.0 SEC Blood Urea Nitrogen 43 MG/DL Creatinine 1.96 MG/DL Random Glucose 182 MG/DL Calcium Level 9.0 MG/DL Sodium Level 137 MEQ/L Potassium Level 4.9 MEQ/L Chloride Level 103 MEQ/L Carbon Dioxide Level 26.7 MEQ/L Anion Gap 7 MEQ/L Estimat Glomerular Filtration Rate 34 ML/MIN MDM Medical Decision Making Medical Screen Exam Complete: Yes Emergency Medical Condition: Yes Medical Record Reviewed: Yes Interpretation(s) Last Impressions Lower Extremity Ultrasound 06/18/17 0000 Signed Impressions: Service Date/Time: Friday, June 18, 2017 19:46 - CONCLUSION: No DVT. Richardson Sales MD Differential Diagnosis Cellulitis versus DVT versus chronic edema Narrative Course 76-year-old male presents to the emergency department from [facility] for evaluation of possible cellulitis/DVT to the right lower extremity. He does have abrasion from brace with chronic skin changes noted. His chronic bilateral lower extremity edema, but wait states that it is worse the right leg than normal. IV access established. CBC, BMP, PTT, PT/INR, venous Doppler ultrasound bilateral lower extremities are ordered and pending. CBC shows no acute abnormality. CMP shows BUN 43, creatinine 1.9; this 182. Coags show no acute abnormality. US is negative for DVT. Physical exam is consistent with mild cellulitis. He'll be started on Bactrim and Keflex. He is given his first dose here. Patient is instructed on proper wound care. He is to return here for any acute worsening of symptoms. He verbalizes agreement and understanding. The patient was discharged in stable condition with instructions, including return instructions and follow up instructions. Diagnosis Primary Impression: Cellulitis of lower extremity Qualified Codes: L03.115 - Cellulitis of right lower limb Referrals: Primary Care Physician call for appointment Patient Instructions: Cellulitis (ED), General Instructions Additional Instructions: Clean twice daily with soap and water and apply [id number] antibiotic ointment. Elevate your legs. Take antibiotics as directed until gone. Follow-up with your primary care physician. Return to the emergency department for any acute worsening of symptoms. Med/Other Pt SpecificInfo: Prescription(s) given Scripts Cephalexin (Keflex) 500 Mg Capsule 500 MG PO Q6H for Infection for 10 Days, #40 CAP 0 Refills Prov: Jody Ramos 06/18/17 Sulfamethoxazole-Trimethoprim (Bactrim DS) 800-160 Mg Tab 1 TAB PO BID for Infection, #20 TAB 0 Refills Prov: Jody Ramos 06/18/17 Disposition: 01 DISCHARGE HOME Condition: Stable Jody Ramos Jun 18, 2017 19:01
[2017-06-18] MEDS ORDERED: SERT-132 PO (19:40)
[2017-06-18] MEDS ORDERED: OMEGCAP PO (19:40)
[2017-06-18] MEDS ORDERED: NITR0.4S SL (19:40)
[2017-06-18] MEDS ORDERED: CENTCHW4 CHEW (19:40)
[2017-06-18] MEDS ORDERED: LISI10TA3 PO (19:40)
[2017-06-18] MEDS ORDERED: REFRDRO EACH EYE (19:40)
[2017-06-18] MEDS ORDERED: CINN500C2 PO (19:40)
[2017-06-18] MEDS ORDERED: FURO40TA PO (19:40)
[2017-06-18] MEDS ORDERED: FERR325T18 PO (19:40)
[2017-06-18 19:47] LABS: AUTOMATED NEUTROPHIL # 7.1 TH/MM3 (1.8-7.7); BASOPHIL # 0.1 TH/MM3 (0-0.2); BASOPHIL % 0.9 % (0.0-2.0); EOSINOPHIL # 0.2 TH/MM3 (0-0.4); EOSINOPHIL % 1.8 % (0.0-4.0); HEMATOCRIT 34.2 % (39.0-51.0); HEMO FLAGS DIFF FINAL; LYMPH % 19.3 % (9.0-44.0); MEAN CELL VOLUME 93.3 FL (80.0-100.0); MEAN CORPUSCULAR HEMOGLOBIN 30.9 PG (27.0-34.0); MEAN CORPUSCULAR HGB CONC 33.2 % (32.0-36.0); PLATELET COUNT 225 TH/MM3 (150-450); RED BLOOD COUNT 3.67 MIL/MM3 (4.50-5.90); RED CELL DISTRIBUTION WIDTH 14.4 % (11.6-17.2); WHITE BLOOD COUNT 10.1 TH/MM3 (4.0-11.0)
[2017-06-18 20:02] LABS: BICARBONATE 26.7 MEQ/L (21.0-32.0); POTASSIUM 4.9 MEQ/L (3.5-5.1)
[2017-06-18 20:09] LABS: PROTHROMBIN TIME - PATIENT 11.4 SEC (9.8-11.6)
--- NOTE | 2017-06-18 20:58 | RADRPT ---
EXAM DATE/TIME: 06/18/2017 19:46 [facility] COMPARISON: No previous studies available for comparison. INDICATIONS : Bilateral leg swelling. MEDICAL HISTORY : Myocardial infarction. Congestive heart failure. Hypercholesterolemia. Thyroid disease. Cerebrovascul ar accident. Anticoagulant therapy. Afib. Hypertension. Cholelithiasis. Diabetes. Measles. Blood martinez sfusion. SURGICAL HISTORY : Coronary artery stent.CABG Right knee surgery. Skin cancer removal. Renal stent. Right carotid stent. ENCOUNTER: Subsequent ACUITY: >1 year PAIN SCORE: 2/10 LOCATION: Bilateral legs. TECHNIQUE: Venous ultrasound of the left and right leg was performed from the inguinal ligament to the proximal calf. Real-time, color Doppler and spectral tracing, compression and augmentation techniques were us ed. FINDINGS: RIGHT LEG: There is normal compressibility of the deep venous system from the inguinal region to the proximal ca lf. No echogenic clot is seen in the lumen of the common femoral, femoral, popliteal, and posterior tibial veins. There is a normal response of the venous system to proximal and distal augmentation an d respiration. LEFT LEG: There is normal compressibility of the deep venous system from the inguinal region to the proximal ca lf. No echogenic clot is seen in the lumen of the common femoral, femoral, popliteal, and posterior tibial veins. There is a normal response of the venous system to proximal and distal augmentation an d respiration. CONCLUSION: No DVT. Richardson Sales MD on June 18, 2017 at 20:56 Board Certified Radiologist. This report was verified electronically.
[2017-06-18] MEDS ORDERED: CEPH-460 PO (21:18)
[2017-06-18] MEDS ORDERED: BACT800T5 PO (21:18)
[2017-06-18] MEDS ORDERED: CEPHALEXIN MONOHYDRATE 500 MG CAP PO ONE (21:30)
[2017-06-18] MEDS ORDERED: SULFAMETHOXAZOLE-TRIMETHOPRIM DS 800-160 MG TAB PO ONE (21:30)
== END 2017-06-18 22:33 | disposition home or self-care (01) ==
LOC: NEPE 18:26
DX: L03.115 Cellulitis of right lower limb (principal); I48.91 Unspecified atrial fibrillation; I11.0 Hypertensive heart disease with heart failure; I50.9 Heart failure, unspecified; E11.9 Type 2 diabetes mellitus without complications; E78.00 Pure hypercholesterolemia, unspecified; Z86.73 Personal history of transient ischemic attack (TIA), and cerebral infarction without residual deficits; Z79.01 Long term (current) use of anticoagulants; Z79.84 Long term (current) use of oral hypoglycemic drugs
CPT/HCPCS: 80048; 85025; 85610; 85730; 93970; 99284

== ENCOUNTER 2017-10-19 12:32 | Inpatient (IN) | payer MEDICARE, OTHER ==
[2017-10-19] VITALS (10 sets, daily range): BP systolic 93–110; BP diastolic 52–56; PULSE 62–73; RESP 16–22; TEMP 97.4–99.4; O2SAT 6–100
[~2017-10-19] VITALS: Ht 172.7 cm; Wt 111.0 kg
[~2017-10-19 12:32] MED LIST changes: +BACT800T5 PO; +CENTCHW4 CHEW; +CEPH-460 PO; +CINN500C2 PO; -FERR1TAB36 PO; +FERR325T18 PO; -FURO20TA PO; +FURO40TA PO; -LISI-519 PO; +LISI10TA3 PO; +NITR0.4S SL; -OMEG100037 PO; +OMEGCAP PO; -PANT40TA3 PO; +REFRDRO EACH EYE; -SERT25TA83 PO
--- NOTE | 2017-10-19 13:18 | PD ---
HPI Chief Complaint: Respiratory Distress Time Seen by Provider: 13:17 Travel History International Travel<30 days: No Contact w/Intl Traveler<30days: No History of Present Illness HPI 77-year-old male with history of CAD, CVA with right-sided deficits, A. fib, diabetes, CHF, presents the emergency department for evaluation of worsening shortness of breath and cough over the last 2 days. Patient states that he feels fine. His tells me that he has been more tired, unable to sleep due to a cough that is worse at night. She is concerned because his lungs get "bad quickly." She is concerned he may have the flu or pneumonia. He has not had any fever or chills. She did report his urine being very dark and strong this morning. There are no other symptoms to report at this time. PFSH Past Medical History Hx Anticoagulant Therapy: Yes Heart Rhythm Problems: Yes (NEW ONSET A-FIB 09/2016) Cancer: Yes (SKIN LESIONS REMOVED FROM FACE) Cardiovascular Problems: Yes High Cholesterol: Yes Chemotherapy: No Cerebrovascular Accident: Yes Diabetes: Yes Patient Takes Glucophage: No Diminished Hearing: No Genitourinary: Yes (HAS SEEN KIDNEY ) Hypertension: Yes Immune Disorder: No Musculoskeletal: Yes (RIGHT ARM FLACID, RIGHT LEG WEAK/HX CVA) Neurologic: Yes (BROCAS APHASIA) Psychiatric: No Reproductive: No Respiratory: Yes Radiation Therapy: No Thyroid Disease: Yes (ON THYROXINE) Tetanus Vaccination: < 5 Years Influenza Vaccination: Yes Past Surgical History Abdominal Surgery: Yes (GALL STONES REMOVED ENDOSCOPICALLY 2006) AICD: Yes (MEDTRONIC- CRD ) Arteriovenous Shunt: No Body Medical Devices: STENTS Cardiac Surgery: Yes (STENTS: CAROTID 2009, CARDIAC 1997, CABG 1995) Coronary Artery Bypass Graft: Yes Genitourinary Surgery: Yes (KIDNEY STENTS) Insulin Pump: No Joint Replacement: No Pacemaker: No Other Surgery: Yes (carotid stent, right) Social History Alcohol Use: No Tobacco Use: No Substance Use: No Allergies-Medications (Allergen,Severity, Reaction): Coded Allergies: No Known Allergies (Verified Adverse Reaction, Unknown, 06/18/17) Reported Meds & Prescriptions Reported Meds & Active Scripts Active Keflex (Cephalexin) 500 Mg Capsule 500 Mg PO Q6H 10 Days Bactrim DS (Sulfamethoxazole-Trimethoprim) 800-160 Mg Tab 1 Tab PO BID Isosorbide Mononitrate ER (Isosorbide Mononitrate) 60 Mg Tab 60 Mg PO DAILY 30 Days Coreg (Carvedilol) 6.25 Mg Tab 6.25 Mg PO BID 30 Days Lipitor (Atorvastatin Calcium) 80 Mg Tab 80 Mg PO HS 30 Days Eliquis (Apixaban) 2.5 Mg Tab 2.5 Mg PO BID 30 Days Reported Nitrostat SL (Nitroglycerin) 0.4 Mg Subl 0.4 Mg SL DIRECTED PRN 1 tablet under the tongue as needed for chest pain. Repeat every 5 minutes for a total of 3 DOSES or call 911 if NO relief. Ferrous Sulfate 325 Mg (65 Mg Iron) Tablet 325 Mg PO DAILY Eql Cinnamon (Cinnamon) 500 Mg Cap 1,000 Mg PO DAILY Centrum (Multiple Vitamins W/ Minerals) 1 Chew 1 Tab CHEW DAILY Sertraline (Sertraline HCl) 50 Mg Tab 75 Mg PO DAILY [place]-3 Fish Oil/Vitamin (Fish Oil-Cholecalciferol) 1,000-1,000 Mg Cap 1 Cap PO BID Lisinopril 10 Mg Tab 10 Mg PO BID Refresh Opth Drops (Polyvinyl Alcohol-Povidone Opth Drops) 1.4-0.6% Drops 1 Drop EACH EYE PRN PRN Furosemide 40 Mg Tab 40 Mg PO DAILY Lantus Inj (Insulin Glargine) 100 Unit/Ml Inj 45 Units SQ AC DINNER Aspirin 81 Mg Chew 81 Mg CHEW DAILY Tizanidine (Tizanidine HCl) 4 Mg Cap 4 Mg PO DAILY Tamsulosin (Tamsulosin HCl) 0.4 Mg Cap 0.4 Mg PO HS Januvia (Sitagliptin Phosphate) 100 Mg Tab 100 Mg PO DAILY Levothyroxine (Levothyroxine Sodium) 25 Mcg Tab 25 Mcg PO DAILY Glipizide XL (Glipizide) 10 Mg Louis 10 Mg PO BID Take with breakfast or first main meal of the day Fenofibrate 145 Mg Tab 145 Mg PO DAILY Review of Systems Except as stated in HPI: all other systems reviewed are Neg Physical Exam Narrative GENERAL: Well-nourished male patient, in no acute distress. SKIN: Focused skin assessment warm/dry. HEAD: Contused wound to the right forehead with a Band-Aid in place. Normocephalic. EYES: Pupils equal and round. No scleral icterus. No injection or drainage. ENT: No nasal bleeding or discharge. Mucous membranes pink and moist. NECK: Trachea midline. No JVD. CARDIOVASCULAR: Regular rate and irregular rhythm.. RESPIRATORY: No accessory muscle use. Clear to auscultation. Breath sounds equal bilaterally. GASTROINTESTINAL: Abdomen soft, non-tender, nondistended. Hepatic and splenic margins not palpable. MUSCULOSKELETAL: No obvious deformities. No clubbing. No cyanosis. Trace bilateral lower extremity edema. NEUROLOGICAL: Awake and alert. No obvious cranial nerve deficits. Right upper extremity is flaccid. Normal speech. PSYCHIATRIC: Appropriate mood and affect; insight and judgment normal. Data Data Last Documented VS Vital Signs Date Time Temp Pulse Resp B/P (MAP) Pulse Ox O2 Delivery O2 Flow Rate FiO2 10/19/17 14:14 68 18 96/53 (67) 98 Room Air 10/19/17 12:39 98.8 Orders Orders Complete Blood Count With Diff (10/19/17 13:24) Basic Metabolic Panel (Bmp) (10/19/17 13:24) Act Partial Throm Time (Ptt) (10/19/17 13:24) Prothrombin Time / Inr (Pt) (10/19/17 13:24) Ckmb (Isoenzyme) Profile (10/19/17 13:24) Troponin I (10/19/17 13:24) Influenzae A/B Antigen (10/19/17 13:24) Iv Access Insert/Monitor (10/19/17 13:24) Electrocardiogram (10/19/17 13:24) Ecg Monitoring (10/19/17 13:24) Oximetry (10/19/17 13:24) Oxygen Administration (10/19/17 13:24) Chest, Single Ap (10/19/17 13:24) Sodium Chloride 0.9% Flush (Ns Flush) (10/19/17 13:30) CKMB (10/19/17 13:37) CKMB% (10/19/17 13:37) Labs Laboratory Tests Test 10/19/17 13:37 White Blood Count 6.8 TH/MM3 Red Blood Count 3.52 MIL/MM3 Hemoglobin 10.6 GM/DL Hematocrit 31.8 % Mean Corpuscular Volume 90.3 FL Mean Corpuscular Hemoglobin 30.1 PG Mean Corpuscular Hemoglobin Concent 33.3 % Red Cell Distribution Width 17.2 % Platelet Count 167 TH/MM3 Mean Platelet Volume 7.9 FL Neutrophils (%) (Auto) 69.4 % Lymphocytes (%) (Auto) 14.9 % Monocytes (%) (Auto) 15.1 % Eosinophils (%) (Auto) 0.2 % Basophils (%) (Auto) 0.4 % Neutrophils # (Auto) 4.7 TH/MM3 Lymphocytes # (Auto) 1.0 TH/MM3 Monocytes # (Auto) 1.0 TH/MM3 Eosinophils # (Auto) 0.0 TH/MM3 Basophils # (Auto) 0.0 TH/MM3 CBC Comment DIFF FINAL Differential Comment Prothrombin Time 13.2 SEC Prothromb Time International Ratio 1.3 RATIO Activated Partial Thromboplast Time 27.6 SEC Blood Urea Nitrogen 61 MG/DL Creatinine 3.23 MG/DL Random Glucose 83 MG/DL Calcium Level 8.6 MG/DL Sodium Level 137 MEQ/L Potassium Level 5.1 MEQ/L Chloride Level 101 MEQ/L Carbon Dioxide Level 28.2 MEQ/L Anion Gap 8 MEQ/L Estimat Glomerular Filtration Rate 19 ML/MIN Total Creatine Kinase 178 U/L Creatine Kinase MB 1.5 NG/ML Troponin I 0.04 NG/ML MDM Medical Decision Making Medical Screen Exam Complete: Yes Emergency Medical Condition: Yes Medical Record Reviewed: Yes Differential Diagnosis CHF versus COPD versus pneumonia versus influenza versus electrolyte abnormality versus cardiac etiology Narrative Course 77-year-old male presents emergency department for evaluation shortness of breath worsening over the last 2 days. Patient appears nontoxic. He is hypotensive compared to his usual hypertension per his . Laboratory Tests Test 10/19/17 13:37 White Blood Count 6.8 TH/MM3 Red Blood Count 3.52 MIL/MM3 Hemoglobin 10.6 GM/DL Hematocrit 31.8 % Mean Corpuscular Volume 90.3 FL Mean Corpuscular Hemoglobin 30.1 PG Mean Corpuscular Hemoglobin Concent 33.3 % Red Cell Distribution Width 17.2 % Platelet Count 167 TH/MM3 Mean Platelet Volume 7.9 FL Neutrophils (%) (Auto) 69.4 % Lymphocytes (%) (Auto) 14.9 % Monocytes (%) (Auto) 15.1 % Eosinophils (%) (Auto) 0.2 % Basophils (%) (Auto) 0.4 % Neutrophils # (Auto) 4.7 TH/MM3 Lymphocytes # (Auto) 1.0 TH/MM3 Monocytes # (Auto) 1.0 TH/MM3 Eosinophils # (Auto) 0.0 TH/MM3 Basophils # (Auto) 0.0 TH/MM3 CBC Comment DIFF FINAL Differential Comment Prothrombin Time 13.2 SEC Prothromb Time International Ratio 1.3 RATIO Activated Partial Thromboplast Time 27.6 SEC Blood Urea Nitrogen 61 MG/DL Creatinine 3.23 MG/DL Random Glucose 83 MG/DL Calcium Level 8.6 MG/DL Sodium Level 137 MEQ/L Potassium Level 5.1 MEQ/L Chloride Level 101 MEQ/L Carbon Dioxide Level 28.2 MEQ/L Anion Gap 8 MEQ/L Estimat Glomerular Filtration Rate 19 ML/MIN Total Creatine Kinase 178 U/L Creatine Kinase MB 1.5 NG/ML Troponin I 0.04 NG/ML Chest x-ray revealed CONCLUSION: 1. Cardiomegaly. No overt congestive failure. Stable appearance of the parenchyma compared to prior. CBC is without acute concern. CMP has BUN of 61 and a creatinine of 3.23. This is an acute worsening of kidney function compared to her last lab values. Due to patient's history of CHF, fluid resuscitation will have to be done carefully. I discussed with my attending physician. Patient will be admitted to the [facility] resident service. Diagnosis Primary Impression: [id number] kidney injury Qualified Codes: N17.9 - Acute kidney failure, unspecified; N18.9 - Chronic kidney disease, unspecified Additional Impressions: Dehydration Cough Shortness of breath Admitting Information Admitting Physician Requests: Observation Condition: Stable Leonarda Harris Oct 19, 2017 13:18
[2017-10-19] MEDS ORDERED: SODIUM CHLORIDE 0.9% FLUSH 10 ML FLUSH IVF PRN (13:30)
--- NOTE | 2017-10-19 13:53 | RADRPT ---
EXAM DATE/TIME: 10/19/2017 13:35 [facility] COMPARISON: CHEST PA & LAT, October 02, 2016, 20:03. INDICATIONS : Short of breath MEDICAL HISTORY : Myocardial infarction. Congestive heart failure. Hypercholesterolemia. Thyroid disease. Cerebrovascul ar accident. Anticoagulant therapy. Afib. Hypertension. Cholelithiasis Diabetes. Measles. Blood trans fusion SURGICAL HISTORY : Pacemaker. Coronary artery stent.CABG Right knee surgery. Skin cancer removal Renal stent. Right ca rotid stent ENCOUNTER: Initial ACUITY: 1 day PAIN SCORE: 0/10 LOCATION: chest FINDINGS: The heart is mildly enlarged. The patient is post median sternotomy. There is a transvenous pacer. Th e lungs are clear. The appearance of the parenchyma similar to a previous dated 10/02/16. The visualized bony structures are grossly intact. CONCLUSION: 1. Cardiomegaly. No overt congestive failure. Stable appearance of the parenchyma compared to prior. Cecilio Pulido MD on October 19, 2017 at 13:49 Board Certified Radiologist. This report was verified electronically.
[2017-10-19 13:56] LABS: AUTOMATED NEUTROPHIL # 4.7 TH/MM3 (1.8-7.7); BASOPHIL % 0.4 % (0.0-2.0); EOSINOPHIL % 0.2 % (0.0-4.0); HEMATOCRIT 31.8 % (39.0-51.0); HEMOGLOBIN 10.6 GM/DL (13.0-17.0); LYMPH % 14.9 % (9.0-44.0); MEAN CELL VOLUME 90.3 FL (80.0-100.0); MEAN CORPUSCULAR HEMOGLOBIN 30.1 PG (27.0-34.0); MEAN CORPUSCULAR HGB CONC 33.3 % (32.0-36.0); MEAN PLATELET VOLUME 7.9 FL (7.0-11.0); MONO % 15.1 % (0.0-8.0); NEUT % 69.4 % (16.0-70.0); PLATELET COUNT 167 TH/MM3 (150-450); RED BLOOD COUNT 3.52 MIL/MM3 (4.50-5.90); RED CELL DISTRIBUTION WIDTH 17.2 % (11.6-17.2); WHITE BLOOD COUNT 6.8 TH/MM3 (4.0-11.0)
[2017-10-19 14:06] LABS: INTERNATIONAL NORMALIZED RATIO 1.3 RATIO; PROTHROMBIN TIME - PATIENT 13.2 SEC (9.8-11.6)
[2017-10-19 14:16] LABS: BICARBONATE 28.2 MEQ/L (21.0-32.0); BLOOD UREA NITROGEN 61 MG/DL (7-18); CALCIUM 8.6 MG/DL (8.5-10.1); CHLORIDE 101 MEQ/L (98-107); CREATININE 3.23 MG/DL (0.60-1.30); GLOMERULAR FILTRATION RATE 19 ML/MIN (>89); GLUCOSE,RANDOM 83 MG/DL (74-106); SODIUM (NA) 137 MEQ/L (136-145)
[2017-10-19 14:19] LABS: TROPONIN I 0.04 NG/ML (0.02-0.05)
[2017-10-19] MEDS ORDERED: SODIUM CHLOR 0.9% 1000 ML INJ 1,000 ML IV ONE (16:15)
--- NOTE | 2017-10-19 16:17 | HHI.HP ---
HPI Service Family Medicine Primary Care Physician No Primary Care Physician Admission Diagnosis ACUTE ON CHRONIC KIDNEY INJURY; SOB; COUGH; Diagnoses: Chief Complaint: Cough International Travel<30 Days: No Contact w/Intl Traveler<30days: No History of Present Illness 77-year-old male with history of CAD, CVA with right-sided deficits (Broca's aphasia), A. fib, diabetes, CHF, DM2 presents w/ shortness of breath and cough over the last 2 days. at bedside is providing history. She tells me that two days ago, she noticed that patient seemed tired and unable to sleep due to a cough that is worse at night, especially while laying flat. Cough is non-productive, not associated episodes of cyanosis/apnea. She is concerned because his lungs get "bad quickly." She is concerned because he sounds like he is choking when he coughs. He has not had any fever or chills. His urine appeared very dark this morning. There are no other symptoms to report at this time. Patient uses a wheelchair at baseline. Is able to speak only minimally due to Broca's aphasia. Also endorses increased weakness - has been having trouble transferring and going to the bathroom. No pain. No fevers. +rhinorrhea, decreased appetite. Loose bowels, no diarrhea. No vomiting. Tried Robitussin daytime and nighttime, did not help cough. Last hospitalization in October was for cellulitis of the lower extremity. He completed in course of antibiotics and was diagnosed with new onset A. fib at the time.Echocardiogram from 10/2016 shows an ejection fraction of 20-25%. Had defibrillator placed earlier this year. Patient is a "snow bird" from [place], comes here for the winter. Have been here since September. Sees PCP in [place]. August 19, creatinine was 1.49, which is "good for him." Would like to set up PCP closer to [place]. Saw a p mechanic last year Dr. Freedman at [facility]. Sees a p mechanic in [place]. (Daiana Villasenor MD R1) Review of Systems Constitutional: DENIES: Fever, Weight loss Endocrine: DENIES: Polydipsia, Polyuria Eyes: DENIES: Eye pain, Vision loss Ears, nose, mouth, throat: DENIES: Hearing loss, Throat pain Respiratory: DENIES: Sputum production Cardiovascular: DENIES: Chest pain, Palpitations Gastrointestinal: DENIES: Abdominal pain, Bloody stools, Constipation, Diarrhea Genitourinary: DENIES: Urinary frequency, Urinary incontinence Musculoskeletal: COMPLAINS OF: Joint Swelling (right leg), DENIES: Joint pain, Muscle aches Integumentary: DENIES: Abnormal pigmentation Hematologic/lymphatic: DENIES: Bruising Immunologic/allergic: DENIES: Eczema Neurologic: DENIES: Headache, Localized weakness, Speech Problems (Daiana Villasenor MD R1) Past Family Social History Past Surgical History Knee surgery August 2017- defibrillator placement cholecystectomy REMOVED ENDOSCOPICALLY 2006 STENTS: CAROTID 2009, CARDIAC 1997, CABG 1995 KIDNEY STENTS (Daiana Villasenor MD R1) Allergies: Coded Allergies: No Known Allergies (Verified Allergy, Unknown, 10/19/17) Family History Dad: emphysema Mom: colon cancer Social History Lives w/ at home in [place] No ETOH or drug use, no smoking. (Daiana Villasenor MD R1) Physical Exam Vital Signs Vital Signs Date Time Temp Pulse Resp B/P (MAP) Pulse Ox O2 Delivery O2 Flow Rate FiO2 10/19/17 14:14 68 18 96/53 (67) 98 Room Air 10/19/17 13:32 18 96 Room Air 10/19/17 13:32 96 Room Air 10/19/17 12:56 18 96 Room Air 10/19/17 12:56 63 18 99/54 (69) 95 Room Air 10/19/17 12:39 98.8 73 22 95/54 (68) 100 Physical Exam GENERAL: This is an elderly, obese male quietly resting in bed. Appears weak. Struggles to sit up in bed when when prompted for examination. Wheelchair at bedside. SKIN: Cool and dry. Stasis dermatitis in the lower extremities. AICD in the right upper chest. HEAD: Atraumatic. Normocephalic. EYES: Extraocular motions intact. No scleral icterus. No injection or drainage. ENT: Nose without bleeding, purulent drainage or septal hematoma. Throat without erythema, tonsillar hypertrophy or exudate. Uvula midline. Airway patent. NECK: Trachea midline. No JVD. CARDIOVASCULAR: Distant heart sounds. No murmurs auscultated. RESPIRATORY: Wheezing on expiration most notable in the lower lobes. GASTROINTESTINAL: Abdomen soft, non-tender, nondistended. No hepato-splenomegaly , or palpable masses. No guarding. MUSCULOSKELETAL: Right lower leg extremity edema (nonpitting) more significant than the left. NEUROLOGICAL: Awake and alert. No focal deficits observed. Patient is unable to speak other than yes or no due to aphasia. Moves very little during exam. Laboratory Laboratory Tests Test 10/19/17 13:37 White Blood Count 6.8 Red Blood Count 3.52 Hemoglobin 10.6 Hematocrit 31.8 Mean Corpuscular Volume 90.3 Mean Corpuscular Hemoglobin 30.1 Mean Corpuscular Hemoglobin Concent 33.3 Red Cell Distribution Width 17.2 Platelet Count 167 Mean Platelet Volume 7.9 Neutrophils (%) (Auto) 69.4 Lymphocytes (%) (Auto) 14.9 Monocytes (%) (Auto) 15.1 Eosinophils (%) (Auto) 0.2 Basophils (%) (Auto) 0.4 Neutrophils # (Auto) 4.7 Lymphocytes # (Auto) 1.0 Monocytes # (Auto) 1.0 Eosinophils # (Auto) 0.0 Basophils # (Auto) 0.0 CBC Comment DIFF FINAL Differential Comment Prothrombin Time 13.2 Prothromb Time International Ratio 1.3 Activated Partial Thromboplast Time 27.6 Blood Urea Nitrogen 61 Creatinine 3.23 Random Glucose 83 Calcium Level 8.6 Sodium Level 137 Potassium Level 5.1 Chloride Level 101 Carbon Dioxide Level 28.2 Anion Gap 8 Estimat Glomerular Filtration Rate 19 Total Creatine Kinase 178 Creatine Kinase MB 1.5 Troponin I 0.04 Date/Time Source Procedure Growth Status 10/19/17 14:45 Nasal Washing Influenza Types A,B Antigen (EVELYN) - Final Positive For Flu B Antigen Complete (Daiana Villasenor MD R1) Result Diagram: 10/19/17 1337 10/19/17 1337 Caprini VTE Risk Assessment Caprini VTE Risk Assessment: Mod/High Risk (score >= 2) Caprini Risk Assessment Model Point Value = 1 Point Value = 2 Point Value = 3 Point Value = 5 Age 41-60 Minor surgery BMI > 25 kg/m2 Swollen legs Varicose veins or History of unexplained or recurrent spontaneous Oral contraceptives or hormone replacement Sepsis (< 1 month) Serious lung disease, including pneumonia (< 1 month) Abnormal pulmonary function Acute myocardial infarction Congestive heart failure (< 1 month) History of inflammatory bowel disease Medical patient at bed rest Age 61-74 Arthroscopic surgery Major open surgery (> 45 min) Laparoscopic surgery (> 45 min) Malignancy Confined to bed (> 72 hours) Immobilizing plaster cast Central venous access Age >= 75 History of VTE Family history of VTE Factor V Leiden Prothrombin [id number] Lupus anticoagulant Anticardiolipin antibodies Elevated serum homocysteine Heparin-induced thrombocytopenia Other congenital or acquired thrombophilia Stroke (< 1 month) Elective arthroplasty Hip, pelvis, or leg fracture Acute spinal cord injury (< 1 month) Prophylaxis Regimen Total Risk Factor Score Risk Level Prophylaxis Regimen 0-1 Low Early ambulation 2 Moderate Order ONE of the following: *Sequential Compression Device (SCD) *Heparin 5000 units SQ BID 3-4 Higher Order ONE of the following medications: *Heparin 5000 units SQ TID *Enoxaparin/Lovenox 40 mg SQ daily (WT < 150 kg, CrCl > 30 mL/min) *Enoxaparin/Lovenox 30 mg SQ daily (WT < 150 kg, CrCl > 10-29 mL/min) *Enoxaparin/Lovenox 30 mg SQ BID (WT < 150 kg, CrCl > 30 mL/min) AND/OR *Sequential Compression Device (SCD) 5 or more Highest Order ONE of the following medications: *Heparin 5000 units SQ TID (Preferred with Epidurals) *Enoxaparin/Lovenox 40 mg SQ daily (WT < 150 kg, CrCl > 30 mL/min) *Enoxaparin/Lovenox 30 mg SQ daily (WT < 150 kg, CrCl > 10-29 mL/min) *Enoxaparin/Lovenox 30 mg SQ BID (WT < 150 kg, CrCl > 30 mL/min) AND *Sequential Compression Device (SCD) (AbidDaiana MD R1) Assessment and Plan Assessment and Plan This is 77-year-old male with CAD, diabetes mellitus 2, and CHF presenting with acute on chronic kidney injury, worsening cough, and weakness. BUN of 61, creatinine 2.23 on admission. Creatinine from last admission in June 2017 showed a creatinine of 1.96. Possible differential is prerenal CHAKA secondary to dehydration, as patient has had poor oral intake over the past few days. We'll continue to monitor kidney function with daily CMP provide maintenance IV fluids. Worsening cough has been unproductive but produces a choking sensation per . Chest x-ray does not show any acute CHF exacerbation. Patient is flu positive. Because symptoms have appeared in the last 48 hours, will start patient on Tamiflu twice a day and provide supportive care, including breathing treatments (do nebs and albuterol alternating). Consulted PT for weakness, patient will need assistance out of bed. For right lower extremity edema, we'll ordered Dopplers. Resume home meds and monitor patient for improvement tomorrow morning. Code Status FULL Discussed Condition With Dr. Mulligan (Daiana Villasenor MD R1) Attending Attestation THIS CASE WAS DISCUSSED WITH THE RESIDENT PHYSICIANS. I HAVE REVIEWED THE RECORD AND AGREE WITH THE ABOVE NOTE AND PLAN OF CARE WAS DISCUSSED. I HAVE AUTHORIZED THE ORDER FOR ADMISSION TO AN IN-PATIENT STATUS. (Tatiana Bach MD) Problem List: (1) Cough ICD Codes: R05 - Cough Status: Acute Plan: Nonproductive, began in the last 2 days Lung exam with wheezing Chest x-ray only shows cardiomegaly, no acute process Flu positive Differential: Influenza versus COPD exacerbation Treatment with albuterol and alternating DuoNebs Monitor vitals Supplemental O2 as needed to maintain sats above 88% (2) Wtzdq-ys-ijzdyod kidney injury ICD Codes: N17.9 - Acute kidney failure, unspecified; N18.9 - Chronic kidney disease, unspecified Status: Acute Plan: On admission, creatinine of 3.23. Baseline appears to be around 1.9 Likely prerenal CHAKA due to dehydration Maintenance IV fluids avoid nephrotoxic agents and contrast monitor daily CMP (3) DM (diabetes mellitus) ICD Codes: E11.9 - Type 2 diabetes mellitus without complications Status: Acute Plan: Home meds: Januvia 100 mg by mouth daily, Lantus 45 units at dinner, glipizide 10 mg twice a day Blood glucose on admission is 83 Hold Lantus 45 units for now Low-dose insulin sliding scale monitor bedside glucose (4) HTN (hypertension) ICD Codes: I10 - Essential (primary) hypertension Status: Acute Plan: Continue home meds: lisinopril, carvedilol, furosemide (5) Influenza A with respiratory manifestations ICD Codes: J10.1 - Influenza due to other identified influenza virus with other respiratory manifestations Plan: Supportive care and treatment at this time Tamiflu twice a day See above plan (6) Atrial fibrillation and flutter ICD Codes: I48.91 - Unspecified atrial fibrillation; I48.92 - Unspecified atrial flutter Status: Acute Plan: Patient on Eliquis, will continue while inpatient (7) H/O: CVA (cerebrovascular accident) ICD Codes: Z86.73 - Personal history of transient ischemic attack (TIA), and cerebral infarction without residual deficits Status: Acute Plan: 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 Patient is unable to verbalize other than yes or no Requires wheelchair for mobility PT consult Aspirin 81 mg 2 daily See above plan (8) Congestive heart failure ICD Codes: I50.9 - Heart failure, unspecified Status: Acute Plan: Chest x-ray shows no overt congestive heart failure, stable appearance of the parenchyma last echo shows ejection fraction of 20-25% from 10/2016 AICD in the left upper chest Continue home meds furosemide, carvedilol, lisinopril (9) Hypothyroidism ICD Codes: E03.9 - Hypothyroidism, unspecified Plan: Continue home med levothyroxine (10) FEN Plan: Fluids: Normal saline 140 MLS/hr Diet: Diabetic Electrolyte supplement as needed DVT prophylaxis (well's criteria of 4): Heparin twice a day, SCDs GI prophylaxis: Not indicated for now (Daiana Villasenor MD R1) Physician Certification 2 Midnight Certification Type: Admission for Inpatient Services Order for Inpatient Services The services are ordered in accordance with Medicare regulations or non- Medicare payer requirements, as applicable. In the case of services not specified as inpatient-only, they are appropriately provided as inpatient services in accordance with the 2-midnight benchmark. Estimated LOS (days): 2 2 days is the estimated time the patient will need to remain in the hospital, assuming treatment plan goals are met and no additional complications. Post-Hospital Plan: Not yet determined (Daiana Villasenor MD R1) 2 Midnight Certification Type: Admission for Inpatient Services Post-Hospital Plan: Home (Tatiana Bach MD) Problem Qualifiers (1) Yesey-uy-nymkyhu kidney injury: Qualified Codes: N17.9 - Acute kidney failure, unspecified; N18.9 - Chronic kidney disease, unspecified (2) DM (diabetes mellitus): Qualified Codes: E11.8 - Type 2 diabetes mellitus with unspecified complications Daiana Villasenor MD R1 Oct 19, 2017 16:17 Tatiana Bach MD Oct 20, 2017 14:33
[2017-10-19] MEDS ORDERED: CARV12.52 PO (16:58)
[2017-10-19] MEDS ORDERED: APIX5TAB PO (16:58)
[2017-10-19] MEDS ORDERED: ISOS60TA PO (16:58)
[2017-10-19] MEDS ORDERED: BISACODYL 10 MG SUPP RECTAL PRN (17:00)
[2017-10-19] MEDS ORDERED: SENNOSIDES 8.6 MG TAB PO PRN (17:00)
[2017-10-19] MEDS ORDERED: MAGNESIUM HYDROXIDE SUSP 30 ML CUP PO PRN (17:00)
[2017-10-19] MEDS ORDERED: NALOXONE HCL 0.4 MG/ML AMP IV PUSH PRN (17:00)
[2017-10-19] MEDS ORDERED: LACTULOSE SYRUP 20 GM/30 ML CUP PO PRN (17:00)
[2017-10-19] MEDS ORDERED: SODIUM CHLORIDE 0.9% FLUSH 10 ML FLUSH IV FLUSH PRN (17:00)
[2017-10-19 17:17] LABS: BILIRUBIN, URINE NEG (NEG); BLOOD, URINE NEG (NEG); GLUCOSE,URINE NEG (NEG); KETONE, URINE NEG (NEG); MUCUS URINE FEW /lpf (OCC); NITRITE,URINE NEG (NEG); URINE COLOR YELLOW (YELLW/STRAW); URINE LEUKOCYTE ESTERASE NEG (NEG)
[2017-10-19] MEDS: OSELTAMIVIR PHOSPHATE 75 MG CAP PO SCH ×2 (18:00→21:37)
[2017-10-19] MEDS ORDERED: DEXTROSE 50% IN WATER 50 ML VIAL(D50) IV PUSH PRN (18:15)
[2017-10-19] MEDS ORDERED: GLUCAGON 1 MG/ML VIAL OTHER PRN (18:15)
[2017-10-19] MEDS ORDERED: PILL SPLITTER OTHER PRN (18:30)
[2017-10-19] MEDS: SODIUM CHLOR 0.9% 1000 ML INJ 1,000 ML IV SCH ×2 (19:30→23:57)
[2017-10-19] MEDS: RESP: ALBUTEROL 2.5 MG/3 ML NEB (SCH) INH (20:11)
[2017-10-19] MEDS: ATORVASTATIN 80 MG TAB PO SCH (20:35)
[2017-10-19] MEDS: APIXABAN 5 MG TABLET PO SCH (20:35)
[2017-10-19] MEDS: ISOSORBIDE MONONITRATE 60 MG CR TAB (IMDUR) PO SCH (20:37)
[2017-10-19] MEDS: INSULIN ASPART SUPPLEMENTAL SCALE SQ SCH (20:38)
[2017-10-19] MEDS: SODIUM CHLORIDE 0.9% FLUSH 10 ML FLUSH IV FLUSH SCH (20:38)
[2017-10-19] MEDS: HEPARIN SODIUM - SQ 10,000 UNITS/ML VIAL SQ SCH (20:38)
[2017-10-19] MEDS ORDERED: LISINOPRIL 10 MG TAB PO SCH (21:00)
[2017-10-19] MEDS ORDERED: TAMSULOSIN HCL 0.4 MG CAP PO SCH (21:00)
[2017-10-19] MEDS ORDERED: CARVEDILOL 12.5 MG TAB PO SCH (21:00)
[2017-10-19] MEDS ORDERED: FUROSEMIDE 40 MG TAB PO SCH (21:00)
[2017-10-19] MEDS ORDERED: OSELTAMIVIR PHOSPHATE 75 MG CAP PO SCH (21:00)
[2017-10-19] MEDS: RESP: ALBUTEROL 2.5 MG/IPRATROPIUM 0.5 MG NEB (SCH) INH (23:40)
[2017-10-20] VITALS (7 sets, daily range): BP systolic 95–127; BP diastolic 54–66; PULSE 60–86; RESP 16–18; TEMP 97.7–100; O2SAT 93–99
[2017-10-20] MEDS: RESP: ALBUTEROL 2.5 MG/3 ML NEB (SCH) INH ×3 (03:28→21:01)
[2017-10-20] MEDS: HEPARIN SODIUM - SQ 10,000 UNITS/ML VIAL SQ SCH (06:03)
[2017-10-20] MEDS: LEVOTHYROXINE SODIUM 25 MCG TAB PO SCH (06:03)
[2017-10-20] MEDS: INSULIN ASPART SUPPLEMENTAL SCALE SQ SCH ×4 (08:00→21:00)
[2017-10-20] MEDS: RESP: ALBUTEROL 2.5 MG/IPRATROPIUM 0.5 MG NEB (SCH) INH ×2 (08:04→17:09)
[2017-10-20] MEDS ORDERED: FUROSEMIDE 40 MG TAB PO SCH (09:00)
[2017-10-20] MEDS ORDERED: CARVEDILOL 12.5 MG TAB PO SCH (09:00)
[2017-10-20] MEDS: SODIUM CHLORIDE 0.9% FLUSH 10 ML FLUSH IV FLUSH SCH ×2 (09:00→21:00)
[2017-10-20 09:05] LABS: AUTOMATED NEUTROPHIL # 3.3 TH/MM3 (1.8-7.7); BASOPHIL % 0.4 % (0.0-2.0); EOSINOPHIL % 0.5 % (0.0-4.0); HEMOGLOBIN 9.7 GM/DL (13.0-17.0); LYMPH % 17.8 % (9.0-44.0); LYMPHOCYTE # 0.8 TH/MM3 (1.0-4.8); MEAN CORPUSCULAR HEMOGLOBIN 30.1 PG (27.0-34.0); MEAN CORPUSCULAR HGB CONC 33.4 % (32.0-36.0); MEAN PLATELET VOLUME 8.1 FL (7.0-11.0); MONO % 11.9 % (0.0-8.0); MONOCYTE # 0.6 TH/MM3 (0-0.9); NEUT % 69.4 % (16.0-70.0); PLATELET COUNT 140 TH/MM3 (150-450); RED BLOOD COUNT 3.22 MIL/MM3 (4.50-5.90); RED CELL DISTRIBUTION WIDTH 17.1 % (11.6-17.2); WHITE BLOOD COUNT 4.7 TH/MM3 (4.0-11.0)
[2017-10-20 09:29] LABS: ALKALINE PHOSPHATASE 30 U/L (45-117); ALT (GPT) 33 U/L (12-78); AST (GOT) 41 U/L (15-37); BLOOD UREA NITROGEN 54 MG/DL (7-18); CALCIUM 7.9 MG/DL (8.5-10.1); CHLORIDE 104 MEQ/L (98-107); CREATININE 2.36 MG/DL (0.60-1.30); GLOMERULAR FILTRATION RATE 27 ML/MIN (>89); SODIUM (NA) 139 MEQ/L (136-145); TOTAL BILIRUBIN ADULT 0.5 MG/DL (0.2-1.0); TOTAL PROTEIN 5.9 GM/DL (6.4-8.2)
[2017-10-20 09:32] LABS: GLUCOSE,RANDOM 39 MG/DL (74-106)
--- NOTE | 2017-10-20 10:36 | EKG ---
Date Performed: 10/19/2017 Time Performed: 14:11:13 PTAGE: 77 years EKG: ELECTRONIC VENTRICULAR PACEMAKER Underlying atrial fibrillation ABNORMAL RHYTHM ECG Compare d to PREVIOUS TRACING the patient is now paced PREVIOUS TRACIN10/03/2016 03.10 DOCTOR: Ester Hernandez Interpretating Date/Time 10/20/2017 10:35:23
[2017-10-20] MEDS: FERROUS SULFATE 325 MG (65 MG ELEMENTAL IRON) TAB PO SCH (10:46)
[2017-10-20] MEDS: FENOFIBRATE 145 MG TAB PO SCH (10:46)
[2017-10-20] MEDS: OSELTAMIVIR PHOSPHATE 75 MG CAP PO SCH ×2 (10:46→21:08)
[2017-10-20] MEDS: APIXABAN 5 MG TABLET PO SCH ×2 (10:46→21:07)
[2017-10-20] MEDS: ASPIRIN 81 MG CHEW TAB CHEW SCH (10:46)
[2017-10-20] MEDS: SERTRALINE HCL 50 MG TAB PO SCH (10:47)
[2017-10-20] MEDS: ISOSORBIDE MONONITRATE 60 MG CR TAB (IMDUR) PO SCH ×2 (10:47→21:08)
[2017-10-20] MEDS: SODIUM CHLOR 0.9% 1000 ML INJ 1,000 ML IV SCH ×3 (11:33→21:10)
--- NOTE | 2017-10-20 14:46 | HHI.FPPN ---
Addendum to progress note ADDENDUM Reason for addendum: Additonal documentation Additional information Please see resident H&P for full documentation of the patients history. 77 year old with multiple comorbid medical issues was admitted for CHAKA on CKD and generalized weakness for observation. He was found to be positive for influenza B. He is seen today with his at the bedside. Patient with broca's aphasia and the history is difficult but the and patient agree that he is a little bit better, still pretty weak, but does have an appetite now which is an improvement from the last few days. States the cough is much better and had no issues overnight. Denies SOB or Chest pain, no fevers or chills. He did have some episodes of hypoglycemia which according to the are common and they adjust his BP and glucose meds almost on a daily basis with his PCP. On exam vitals are stable, Tmax 99.7 - the patient is in NAD, alert and oriented. Able to answer yes/no questions well. He is eating at the time of the visit with no issues. HEENT - OP clear, no cervical LAD, full ROM neck, thyroid nonenlarged Cards -- rrr, no murmurs Pulm -- clear, no wheezing, no rales, good air movement, no accessory muscle use or retractions. 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 Cr improving, patient clinically still pretty weak and at risk for complications from the flu. Will continue his current regimen, continue hydration and monitor a little longer. Will have PT evaluate for weakness to make sure he will be safe for discharge. Would like to see his Cr improve a little more. Anticipate dc tomorrow if patient continues to do well. Patient was seen and dw the resident team -- Dr. Santacruz, Dr. Villasenor, and Dr. Isaak Bach,Tatiana Garcia MD Oct 20, 2017 14:46
[2017-10-20] MEDS ORDERED: INSULIN DETEMIR 100 UNITS/ML VIAL SQ SCH (16:00)
[2017-10-20] MEDS: ATORVASTATIN 80 MG TAB PO SCH (21:08)
[2017-10-21] MEDS: RESP: ALBUTEROL 2.5 MG/IPRATROPIUM 0.5 MG NEB (SCH) INH ×4 (00:44→23:40)
[2017-10-21] MEDS: RESP: ALBUTEROL 2.5 MG/3 ML NEB (SCH) INH ×3 (04:02→22:05)
[2017-10-21] MEDS: SODIUM CHLOR 0.9% 1000 ML INJ 1,000 ML IV SCH ×3 (04:33→18:51)
[2017-10-21] MEDS: LEVOTHYROXINE SODIUM 25 MCG TAB PO SCH (06:08)
[2017-10-21] MEDS: INSULIN ASPART SUPPLEMENTAL SCALE SQ SCH ×4 (08:00→23:15)
[2017-10-21] MEDS: SODIUM CHLORIDE 0.9% FLUSH 10 ML FLUSH IV FLUSH SCH ×2 (09:00→23:03)
[2017-10-21] MEDS ORDERED: LISI-519 PO (09:05)
[2017-10-21] MEDS ORDERED: OSEL75 PO (09:05)
--- NOTE | 2017-10-21 09:06 | HHI.DCPOC ---
Discharge Care Plan Diagnosis: (1) Flkeq-ve-cytkmvm kidney injury Goals to Promote Your Health * To prevent worsening of your condition and complications * To maintain your health at the optimal level Directions to Meet Your Goals Take your medications as prescribed Follow your dietary instruction Follow activity as directed Keep your appointments as scheduled Take your immunizations and boosters as scheduled If your symptoms worsen call your PCP, if no PCP go to Urgent Care Center or Emergency Room Smoking is Dangerous to Your Health. Avoid second hand smoke Call the 24-hour hour crisis hotline for domestic abuse at Daiana Villasenor MD R1 Oct 21, 2017 09:06
[2017-10-21 09:24] VITALS: BP 126/58; PULSE 84; RESP 16; TEMP 99.8; O2SAT 92
[2017-10-21] MEDS: ISOSORBIDE MONONITRATE 60 MG CR TAB (IMDUR) PO SCH ×2 (09:55→23:03)
[2017-10-21] MEDS: FERROUS SULFATE 325 MG (65 MG ELEMENTAL IRON) TAB PO SCH (09:55)
[2017-10-21] MEDS: SERTRALINE HCL 50 MG TAB PO SCH (09:56)
[2017-10-21] MEDS: ASPIRIN 81 MG CHEW TAB CHEW SCH (09:57)
[2017-10-21] MEDS: OSELTAMIVIR PHOSPHATE 75 MG CAP PO SCH ×2 (09:57→23:03)
[2017-10-21] MEDS: APIXABAN 5 MG TABLET PO SCH ×2 (09:58→23:03)
[2017-10-21] MEDS: FENOFIBRATE 145 MG TAB PO SCH (09:58)
[2017-10-21 10:00] LABS: HEMATOCRIT 27.9 % (39.0-51.0); HEMOGLOBIN 9.5 GM/DL (13.0-17.0); MEAN CELL VOLUME 89.9 FL (80.0-100.0); MEAN CORPUSCULAR HEMOGLOBIN 30.6 PG (27.0-34.0); MEAN PLATELET VOLUME 7.8 FL (7.0-11.0); PLATELET COUNT 135 TH/MM3 (150-450); RED CELL DISTRIBUTION WIDTH 17.2 % (11.6-17.2); WHITE BLOOD COUNT 6.5 TH/MM3 (4.0-11.0)
[2017-10-21 10:39] LABS: BICARBONATE 22.1 MEQ/L (21.0-32.0); CALCIUM 8.2 MG/DL (8.5-10.1); CREATININE 2.08 MG/DL (0.60-1.30)
[2017-10-21 10:51] VITALS: BP 125/62; PULSE 77; RESP 16; TEMP 97.5; O2SAT 93
--- NOTE | 2017-10-21 11:14 | HHI.FPPN ---
Subjective Remarks Patient states he is feeling well today. Kidney function has improved. Eating and drinking ok, no dysuria, chest pain, or SOB. No new complaints. (Daiana Villasenor MD R1) Objective Vitals Vital Signs Date Time Temp Pulse Resp B/P (MAP) Pulse Ox O2 Delivery O2 Flow Rate FiO2 10/21/17 10:51 97.5 77 16 125/62 (83) 93 10/21/17 09:24 99.8 84 16 126/58 (80) 92 10/20/17 23:55 100.0 77 18 127/62 (83) 93 10/20/17 21:04 99.5 86 18 113/65 (81) 97 10/20/17 21:01 94 21 10/20/17 16:54 98.6 73 18 122/57 (78) 93 10/20/17 12:18 97.7 66 16 123/66 (85) 99 I/O 10/20/17 10/20/17 10/20/17 10/21/17 10/21/17 10/21/17 07:00 15:00 23:00 07:00 15:00 23:00 Intake Total 1300 ml 1000 ml 1000 ml Output Total 700 ml 300 ml Balance 600 ml 1000 ml 700 ml Intake Oral 300 ml IV Total 1000 ml 1000 ml 1000 ml Output Urine Total 700 ml 300 ml # Voids 6 # Bowel Movements 1 2 (Daiana Villasenor MD R1) Result Diagram: 10/21/17 0930 10/21/17 0930 Objective Remarks GENERAL: This is an elderly, obese male quietly resting in bed resting comfortably in bed. Smiles and readily answers questions. SKIN: Cool and dry. Stasis dermatitis in the lower extremities. AICD in the right upper chest. HEAD: Atraumatic. Normocephalic. EYES: Extraocular motions intact. No scleral icterus. No injection or drainage. NECK: Trachea midline. No JVD. CARDIOVASCULAR: Distant heart sounds. No murmurs auscultated. RESPIRATORY: clear to auscultation. GASTROINTESTINAL: Abdomen soft, non-tender, nondistended. MUSCULOSKELETAL: No change in edema of extremities. NEUROLOGICAL: Awake and alert. No focal deficits observed. (Daiana Villasenor MD R1) A/P Assessment and Plan This is 77-year-old male with CAD, diabetes mellitus 2, and CHF presenting with acute on chronic kidney injury, worsening cough, and weakness. BUN of 61, creatinine 2.23 on admission. Creatinine from last admission in June 2017 showed a creatinine of 1.96. Possible differential is prerenal CHAKA secondary to dehydration, as patient has had poor oral intake over the past few days. We'll continue to monitor kidney function with daily CMP provide maintenance IV fluids. Worsening cough has been unproductive but produces a choking sensation per . Chest x-ray does not show any acute CHF exacerbation. Patient is flu positive. Because symptoms have appeared in the last 48 hours, will start patient on Tamiflu twice a day and provide supportive care, including breathing treatments (do nebs and albuterol alternating). Consulted PT for weakness, patient will need assistance out of bed. For right lower extremity edema, we'll ordered Dopplers. Home BP meds were held due to BP running low. Patient was given no medications for diabetes since fasting glucose was 39, bedside glucose 94-116. Patient improved on day of discharge. Discharge Planning D/C today w/improvement in kidney function (Daiana Villasenor MD R1) Attending Attestation Patient seen and examined. Case reviewed and discussed with the resident team. Agree with plan of care as discussed with me and documented in the resident note. Clinically improved and patient as his baseline. Medically stable for discharge. (Tatiana Bach MD) Problem List: (1) Cough ICD Codes: R05 - Cough Status: Acute Plan: Nonproductive, began in the last 2 days Lung exam with wheezing Chest x-ray only shows cardiomegaly, no acute process Flu positive Improved Treatment with albuterol and alternating DuoNebs Monitor vitals Supplemental O2 as needed to maintain sats above 88% (2) Twqll-kk-sxzqsgp kidney injury ICD Codes: N17.9 - Acute kidney failure, unspecified; N18.9 - Chronic kidney disease, unspecified Status: Acute Plan: On admission, creatinine of 3.23. Baseline appears to be around 1.9 Likely prerenal CHAKA due to dehydration, has improved w/IVF ->creatinine 2.08 today Maintenance IV fluids avoid nephrotoxic agents and contrast encourage PO hydration (3) Influenza B ICD Codes: J10.1 - Influenza due to other identified influenza virus with other respiratory manifestations Plan: Supportive care and treatment at this time Tamiflu twice a day See above plan (4) DM (diabetes mellitus) ICD Codes: E11.9 - Type 2 diabetes mellitus without complications Status: Chronic Plan: Home meds: Januvia 100 mg by mouth daily, Lantus 45 units at dinner, glipizide 10 mg twice a day Blood glucose on admission is 83 Fasting glucose yesterday of 39; 91 this AM Hold all medications monitor bedside glucose Will need to hold medications on discharge and monitor bedside glucose. Follow up w/PCP or director telemetry to adjust medication if needed (5) HTN (hypertension) ICD Codes: I10 - Essential (primary) hypertension Status: Chronic Plan: home meds: lisinopril, carvedilol, furosemide Held all since yesterday due to low BP (109/57-127/62) Monitor BP on discharge and may resume if blood pressures rise. Follow up w/PCP for blood pressure medication management (6) Atrial fibrillation and flutter ICD Codes: I48.91 - Unspecified atrial fibrillation; I48.92 - Unspecified atrial flutter Status: Chronic Plan: Patient on Eliquis, will continue while inpatient (7) H/O: CVA (cerebrovascular accident) ICD Codes: Z86.73 - Personal history of transient ischemic attack (TIA), and cerebral infarction without residual deficits Status: Chronic Plan: 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 Patient is unable to verbalize other than yes or no Requires wheelchair for mobility PT consult Aspirin 81 mg 2 daily See above plan (8) Congestive heart failure ICD Codes: I50.9 - Heart failure, unspecified Status: Chronic Plan: Chest x-ray shows no overt congestive heart failure, stable appearance of the parenchyma last echo shows ejection fraction of 20-25% from 10/2016 AICD in the left upper chest Continue home meds furosemide, carvedilol, lisinopril (9) Hypothyroidism ICD Codes: E03.9 - Hypothyroidism, unspecified Status: Chronic Plan: Continue home med levothyroxine (10) FEN Plan: Fluids: Normal saline 140 MLS/hr Diet: Diabetic Electrolyte supplement as needed DVT prophylaxis (well's criteria of 4): Heparin twice a day, SCDs GI prophylaxis: Not indicated for now (Daiana Villasenor MD R1) Problem Qualifiers (1) Qvbni-lr-csturyx kidney injury: Qualified Codes: N17.9 - Acute kidney failure, unspecified; N18.9 - Chronic kidney disease, unspecified (2) DM (diabetes mellitus): Qualified Codes: E11.8 - Type 2 diabetes mellitus with unspecified complications Daiana Villasenor MD R1 Oct 21, 2017 11:14 Tatiana Bach MD Oct 21, 2017 16:23
--- NOTE | 2017-10-21 12:00 | RADRPT ---
EXAM DATE/TIME: 10/19/2017 18:10 [facility] COMPARISON: US LEG BILATERAL VENOUS DOPPLER, June 18, 2017, 19:46. INDICATIONS : Right leg swelling. MEDICAL HISTORY : Myocardial infarction. Congestive heart failure. Hypercholesterolemia. Thyroid disease. Cerebrovascul ar accident. Anticoagulant therapy. Afib. Hypertension. Cholelithiasis. Diabetes. Measles. Blood martinez sfusion. SURGICAL HISTORY : Coronary artery stent.CABG Right knee surgery. Skin cancer removal. Renal stent. Right carotid stent. ENCOUNTER: Subsequent ACUITY: >1 year PAIN SCORE: 3/10 LOCATION: Right leg. TECHNIQUE: Venous ultrasound of the leg was performed from the inguinal ligament to the proximal calf. Real-misbah e, color Doppler and spectral tracing, compression and augmentation techniques were used. FINDINGS: There is normal compressibility of the deep venous system from the inguinal region to the proximal ca lf. No echogenic clot is seen in the lumen of the common femoral, femoral, popliteal, and posterior tibial veins. There is a normal response of the venous system to proximal and distal augmentation an d respiration. CONCLUSION: 1. No DVT identified. Cecilio Pulido MD on October 21, 2017 at 11:57 Board Certified Radiologist. This report was verified electronically.
[2017-10-21] MEDS ORDERED: HYDR5SYP10 PO (14:01)
[2017-10-21 22:07] VITALS: O2SAT 94
[2017-10-21] MEDS: ATORVASTATIN 80 MG TAB PO SCH (23:03)
[2017-10-22] VITALS (10 sets, daily range): BP systolic 103–134; BP diastolic 56–77; PULSE 68–96; RESP 16–24; TEMP 97.7–100.1; O2SAT 92–100
[2017-10-22] MEDS: SODIUM CHLOR 0.9% 1000 ML INJ 1,000 ML IV SCH (02:14)
[2017-10-22] MEDS: RESP: ALBUTEROL 2.5 MG/3 ML NEB (SCH) INH (04:55)
--- NOTE | 2017-10-22 05:36 | RADRPT ---
EXAM DATE/TIME: 10/22/2017 05:18 [facility] COMPARISON: CHEST SINGLE AP, October 19, 2017, 13:35. INDICATIONS : Shortness of breath. MEDICAL HISTORY : Myocardial infarction. Congestive heart failure. Hypertension. SURGICAL HISTORY : Pacemaker. Coronary artery stent. CABG. ENCOUNTER: Subsequent ACUITY: 4 - 6 days PAIN SCORE: Non-responsive. LOCATION: Bilateral chest FINDINGS: Interval development of diffuse patchy areas of airspace opacity throughout both lungs. The heart is enlarged, stable from prior. Both hemidiaphragms are well delineated. Cardiac pacer lead stable po sition. CONCLUSION: Interval development of diffuse fluffy bilateral airspace opacities. Venkatesh Nieto MD on October 22, 2017 at 5:34 Board Certified Radiologist. This report was verified electronically.
--- NOTE | 2017-10-22 06:04 | HHI.FPPN ---
Addendum to progress note ADDENDUM Reason for addendum: Additonal documentation Additional information Resident team paged by nurse to report patient had increased O2 requirements overnight and was currently with O2 sat at 93 % on 3 NL, previously patient had O2 saturations ranging 92-94% on RA. Patient was not on fluids overnight night and home dose of lasix has been on hold for the past 2 days. Resident team examined patient at bedside, crackles were noted on lung exam more pronounced on Right side. Pt denies CP. Plan: CXR was ordered and lasix will be resumed at does 20mg BID. Deric Dasilva MD, R1 Oct 22, 2017 06:04
[2017-10-22] MEDS: LEVOTHYROXINE SODIUM 25 MCG TAB PO SCH (06:07)
[2017-10-22] MEDS ORDERED: FUROSEMIDE 40 MG/4 ML VIAL IV PUSH ONE (06:30)
[2017-10-22] MEDS ORDERED: MENTHOL LOZENGE BUCCAL PRN (06:30)
[2017-10-22] MEDS ORDERED: FUROSEMIDE 40 MG TAB PO ONE (07:00)
[2017-10-22] MEDS: RESP: ALBUTEROL 2.5 MG/IPRATROPIUM 0.5 MG NEB (SCH) INH (08:10)
[2017-10-22] MEDS ORDERED: FUROSEMIDE 20 MG TAB PO SCH (09:00)
[2017-10-22] MEDS ORDERED: ACETAMINOPHEN 325 MG TAB PO PRN (09:00)
[2017-10-22] MEDS ORDERED: FUROSEMIDE 40 MG TAB PO SCH (09:30)
[2017-10-22] MEDS: SERTRALINE HCL 50 MG TAB PO SCH (09:47)
[2017-10-22] MEDS: ASPIRIN 81 MG CHEW TAB CHEW SCH (09:48)
[2017-10-22] MEDS: ISOSORBIDE MONONITRATE 60 MG CR TAB (IMDUR) PO SCH ×2 (09:48→22:35)
[2017-10-22] MEDS: BENZONATATE 100 MG CAP PO PRN (09:48)
[2017-10-22] MEDS: CARVEDILOL 12.5 MG TAB PO SCH ×2 (09:48→22:35)
[2017-10-22] MEDS: APIXABAN 5 MG TABLET PO SCH ×2 (09:48→22:35)
[2017-10-22] MEDS: FERROUS SULFATE 325 MG (65 MG ELEMENTAL IRON) TAB PO SCH (09:49)
[2017-10-22] MEDS: INSULIN ASPART SUPPLEMENTAL SCALE SQ SCH ×4 (09:50→22:34)
[2017-10-22] MEDS: FENOFIBRATE 145 MG TAB PO SCH (09:50)
[2017-10-22] MEDS: OSELTAMIVIR PHOSPHATE 75 MG CAP PO SCH ×2 (09:50→22:34)
[2017-10-22] MEDS: LISINOPRIL 5 MG TAB PO SCH (09:52)
[2017-10-22] MEDS: FUROSEMIDE 40 MG/4 ML VIAL IVP SCH ×2 (10:28→19:06)
[2017-10-22] MEDS: SODIUM CHLORIDE 0.9% FLUSH 10 ML FLUSH IV FLUSH SCH ×2 (10:28→22:35)
[2017-10-22 10:33] LABS: ALBUMIN 2.7 GM/DL (3.4-5.0); ALKALINE PHOSPHATASE 30 U/L (45-117); ALT (GPT) 348 U/L (12-78); AST (GOT) 714 U/L (15-37); BICARBONATE 21.3 MEQ/L (21.0-32.0); BLOOD UREA NITROGEN 36 MG/DL (7-18); CALCIUM 8.2 MG/DL (8.5-10.1); CHLORIDE 107 MEQ/L (98-107); CREATININE 1.98 MG/DL (0.60-1.30); GLOMERULAR FILTRATION RATE 33 ML/MIN (>89); GLUCOSE,RANDOM 180 MG/DL (74-106); SODIUM (NA) 138 MEQ/L (136-145); TOTAL BILIRUBIN ADULT 1.4 MG/DL (0.2-1.0); TOTAL PROTEIN 6.2 GM/DL (6.4-8.2)
[2017-10-22] MEDS ORDERED: RESP: ALBUTEROL 2.5 MG/3 ML NEB (PRN) INH (12:00)
[2017-10-22] MEDS: RESP: ALBUTEROL 2.5 MG/IPRATROPIUM 0.5 MG NEB (PRN) INH ×2 (12:38→21:05)
[2017-10-22] MEDS: MUPIROCIN 2% CREAM 15 GM TOPICAL SCH (14:53)
[2017-10-22] MEDS ORDERED: FUROSEMIDE 40 MG/4 ML VIAL IVP SCH (18:00)
--- NOTE | 2017-10-22 18:21 | HHI.FPPN ---
Subjective Remarks Patient had episode of hypoxia overnight. Given furosemide x1 and CXR ordered. Results showed diffuse, fluffy infiltrates. Saw patient this morning, was satting high 80s on 3 L NC O2, with increased work of breathing. Poor air flow in the lungs. I/O this morning was 2.0/0.3. Patient was immediately given a venti mask, satted to 95% on 6L. Given IV Lasix 40 mg today. Admitted to floor. (Daiana Villasenor MD R1) Objective Vitals Vital Signs Date Time Temp Pulse Resp B/P (MAP) Pulse Ox O2 Delivery O2 Flow Rate FiO2 10/22/17 15:34 97.7 74 22 105/58 (74) 97 10/22/17 12:20 98 Simple Mask 6.00 10/22/17 11:59 68 10/22/17 11:39 99.3 83 22 103/56 (72) 98 10/22/17 08:23 100.1 84 24 123/77 (92) 93 10/22/17 08:13 92 Nasal Cannula 3.00 10/22/17 04:59 93 Nasal Cannula 3.00 10/22/17 04:59 98.7 96 20 134/60 (84) 94 10/21/17 22:07 94 21 I/O 10/21/17 10/21/17 10/21/17 10/22/17 10/22/17 10/22/17 06:59 14:59 22:59 06:59 14:59 22:59 Intake Total 1000 ml 420 ml Output Total 300 ml 1150 ml Balance 700 ml -730 ml Intake Oral 420 ml IV Total 1000 ml Output Urine Total 300 ml 1150 ml # Voids 6 # Bowel Movements 2 1 (Daiana Villasenor MD R1) Result Diagram: 10/21/17 0930 10/22/17 0855 Objective Remarks GENERAL: This is an elderly, obese male quietly resting in bed resting comfortably in bed. Smiles and readily answers questions. SKIN: Cool and dry. Stasis dermatitis in the lower extremities. AICD in the right upper chest. HEAD: Atraumatic. Normocephalic. EYES: Extraocular motions intact. No scleral icterus. No injection or drainage. NECK: Trachea midline. No JVD. CARDIOVASCULAR: Distant heart sounds. No murmurs auscultated. RESPIRATORY: clear to auscultation. GASTROINTESTINAL: Abdomen soft, non-tender, nondistended. MUSCULOSKELETAL: No change in edema of extremities. NEUROLOGICAL: Awake and alert. No focal deficits observed. (Daiana Villasenor MD R1) A/P Assessment and Plan This is 77-year-old male with CAD, diabetes mellitus 2, and CHF presenting with acute on chronic kidney injury, worsening cough, and weakness. BUN of 61, creatinine 2.23 on admission. Creatinine from last admission in June 2017 showed a creatinine of 1.96. Possible differential is prerenal CHAKA secondary to dehydration, as patient has had poor oral intake over the past few days. We'll continue to monitor kidney function with daily CMP provide maintenance IV fluids. Worsening cough has been unproductive but produces a choking sensation per . Chest x-ray does not show any acute CHF exacerbation. Patient is flu positive. Because symptoms have appeared in the last 48 hours, will start patient on Tamiflu twice a day and provide supportive care, including breathing treatments (do nebs and albuterol alternating). Consulted PT for weakness, patient will need assistance out of bed. For right lower extremity edema, we'll ordered Dopplers. Home BP meds were held due to BP running low. Patient was given no medications for diabetes since fasting glucose was 39, bedside glucose 94-116. Patient improved on day of discharge. However, D/C was delayed due to weakness observed by PT. Patient then had an episode of hypoxia overnight, w/O2 sats in high to mid 80s. CXR showed opacities concerning for pulmonary congestion due to fluid overload. Patient was admitted to inpatient and given Lasix and daily IV Lasix, along with breathing treatments and strict I/O's. Discharge Planning Pending improvement in hypoxia. Patient will need PT w/rehab due to recent deconditioning 2/2 flu illness and hospitalization (Daiana Villasenor MD R1) Attending Attestation Patient seen and examined. Case reviewed and discussed with the resident team. Agree with plan of care as discussed with me and documented in the resident note. (Tatiana Bach MD) Problem List: (1) Hypoxia ICD Codes: R09.02 - Hypoxemia Plan: Likely secondary to CHF exacerbation Positive fluid balance Physical exam shows crackles and poor airflow Satted 85-91% on 3L NC O2 Monitor vitals Q4H Titrate O2 >92% Incentive spirometry Daily weights, strict I/O's IV furosemide BID (2) CHF exacerbation ICD Codes: I50.9 - Heart failure, unspecified Plan: See above (3) Cough ICD Codes: R05 - Cough Status: Acute Plan: Tessalon pearls and cough drops PRN (4) Weakness ICD Codes: R53.1 - Weakness Plan: Likely secondary to flu and deconditioning PT consulted (5) Nsfso-ou-gftitkr kidney injury ICD Codes: N17.9 - Acute kidney failure, unspecified; N18.9 - Chronic kidney disease, unspecified Status: Resolved Plan: On admission, creatinine of 3.23. Baseline appears to be around 1.9 Likely prerenal CHAKA due to dehydration, has improved to baseline (6) Influenza B ICD Codes: J10.1 - Influenza due to other identified influenza virus with other respiratory manifestations Plan: Supportive care and treatment at this time Tamiflu twice a day See above plan (7) DM (diabetes mellitus) ICD Codes: E11.9 - Type 2 diabetes mellitus without complications Status: Chronic Plan: Home meds: Januvia 100 mg by mouth daily, Lantus 45 units at dinner, glipizide 10 mg twice a day Blood glucose on admission is 83 Fasting glucose yesterday of 39; 91 this AM Hold all medications monitor bedside glucose Will need to hold medications on discharge and monitor bedside glucose. Follow up w/PCP or director of acquisition marketing to adjust medication if needed (8) HTN (hypertension) ICD Codes: I10 - Essential (primary) hypertension Status: Chronic Plan: home meds: lisinopril, carvedilol, furosemide Held all since yesterday due to low BP (109/57-127/62) Monitor BP on discharge and may resume if blood pressures rise. 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 Patient is unable to verbalize other than yes or no Requires wheelchair for mobility PT consult Aspirin 81 mg 2 daily See above plan (11) Congestive heart failure ICD Codes: I50.9 - Heart failure, unspecified Status: Chronic Plan: Chest x-ray shows no overt congestive heart failure, stable appearance of the parenchyma last echo shows ejection fraction of 20-25% from 10/2016 AICD in the left upper chest Continue home meds furosemide, carvedilol, lisinopril (12) Hypothyroidism ICD Codes: E03.9 - Hypothyroidism, unspecified Status: Chronic Plan: Continue home med levothyroxine (13) FEN Plan: Fluids: None Diet: Diabetic Electrolyte supplement as needed DVT prophylaxis (well's criteria of 4): Heparin twice a day, SCDs GI prophylaxis: Not indicated for now (Daiana Villasenor MD R1) Problem Qualifiers (1) Hahdk-le-kkpdevj kidney injury: Qualified Codes: N17.9 - Acute kidney failure, unspecified; N18.9 - Chronic kidney disease, unspecified (2) DM (diabetes mellitus): Qualified Codes: E11.8 - Type 2 diabetes mellitus with unspecified complications Daiana Villasenor MD R1 Oct 22, 2017 18:21 Tatiana Bach MD Oct 23, 2017 08:06
[2017-10-22] MEDS: ATORVASTATIN 80 MG TAB PO SCH (22:34)
[2017-10-23] VITALS (9 sets, daily range): BP systolic 99–123; BP diastolic 54–79; PULSE 73–80; RESP 18–22; TEMP 97.7–99; O2SAT 95–98
[2017-10-23] MEDS: LEVOTHYROXINE SODIUM 25 MCG TAB PO SCH (05:20)
[2017-10-23 07:29] LABS: AUTOMATED NEUTROPHIL # 5.5 TH/MM3 (1.8-7.7); BASOPHIL % 0.2 % (0.0-2.0); HEMATOCRIT 27.3 % (39.0-51.0); HEMOGLOBIN 9.3 GM/DL (13.0-17.0); LYMPH % 14.5 % (9.0-44.0); MEAN CELL VOLUME 89.2 FL (80.0-100.0); MEAN CORPUSCULAR HEMOGLOBIN 30.4 PG (27.0-34.0); MEAN CORPUSCULAR HGB CONC 34.1 % (32.0-36.0); MEAN PLATELET VOLUME 8.5 FL (7.0-11.0); MONO % 4.9 % (0.0-8.0); MONOCYTE # 0.3 TH/MM3 (0-0.9); NEUT % 80.4 % (16.0-70.0); PLATELET COUNT 130 TH/MM3 (150-450); RED BLOOD COUNT 3.06 MIL/MM3 (4.50-5.90); RED CELL DISTRIBUTION WIDTH 17.3 % (11.6-17.2); WHITE BLOOD COUNT 6.9 TH/MM3 (4.0-11.0)
[2017-10-23 08:00] LABS: ALBUMIN 2.4 GM/DL (3.4-5.0); ALT (GPT) 409 U/L (12-78); AST (GOT) 388 U/L (15-37); BICARBONATE 27.6 MEQ/L (21.0-32.0); BLOOD UREA NITROGEN 39 MG/DL (7-18); CALCIUM 8.2 MG/DL (8.5-10.1); CHLORIDE 104 MEQ/L (98-107); CREATININE 1.93 MG/DL (0.60-1.30); GLOMERULAR FILTRATION RATE 34 ML/MIN (>89); GLUCOSE,RANDOM 203 MG/DL (74-106); SODIUM (NA) 140 MEQ/L (136-145)
[2017-10-23] MEDS: INSULIN ASPART SUPPLEMENTAL SCALE SQ SCH ×4 (08:00→23:01)
[2017-10-23 08:02] LABS: ALKALINE PHOSPHATASE 31 U/L (45-117); TOTAL PROTEIN 5.8 GM/DL (6.4-8.2)
[2017-10-23] MEDS: LISINOPRIL 5 MG TAB PO SCH (09:00)
[2017-10-23] MEDS: APIXABAN 5 MG TABLET PO SCH ×2 (09:03→23:01)
[2017-10-23] MEDS: predniSONE 20 MG TAB PO SCH (09:03)
[2017-10-23] MEDS: OSELTAMIVIR PHOSPHATE 75 MG CAP PO SCH ×2 (09:03→23:01)
[2017-10-23] MEDS: FUROSEMIDE 40 MG/4 ML VIAL IVP SCH (09:03)
[2017-10-23] MEDS: ISOSORBIDE MONONITRATE 60 MG CR TAB (IMDUR) PO SCH ×2 (09:03→23:00)
[2017-10-23] MEDS: SERTRALINE HCL 50 MG TAB PO SCH (09:04)
[2017-10-23] MEDS: FERROUS SULFATE 325 MG (65 MG ELEMENTAL IRON) TAB PO SCH (09:04)
[2017-10-23] MEDS: ASPIRIN 81 MG CHEW TAB CHEW SCH (09:05)
[2017-10-23] MEDS: SODIUM CHLORIDE 0.9% FLUSH 10 ML FLUSH IV FLUSH SCH ×2 (09:05→23:00)
[2017-10-23] MEDS: CARVEDILOL 12.5 MG TAB PO SCH ×2 (09:05→23:01)
[2017-10-23] MEDS: MUPIROCIN 2% CREAM 15 GM TOPICAL SCH (09:05)
[2017-10-23] MEDS: FENOFIBRATE 145 MG TAB PO SCH (09:05)
--- NOTE | 2017-10-23 10:14 | HHI.FPPN ---
Subjective Remarks No acute issues overnight. Vitals are stable, patient remains afebrile. He is finding it much easier to breath today. His O2 saturation was 98% on 3L NC overnight. He denies any chest pain, shortness of breath, fever, chills, nausea , vomiting, or abdominal pain. He denies any previous issues with his liver. (Sruthi Mulligan MD, R3) Objective Vitals Vital Signs Date Time Temp Pulse Resp B/P (MAP) Pulse Ox O2 Delivery O2 Flow Rate FiO2 10/23/17 07:30 99.0 80 22 115/62 (79) 98 10/23/17 04:10 73 10/23/17 03:14 98.0 77 18 99/54 (69) 96 10/22/17 23:34 75 10/22/17 23:15 98.1 80 16 107/58 (74) 98 10/22/17 22:00 Nasal Cannula 3.00 10/22/17 21:05 97 Nasal Cannula 3.00 10/22/17 20:02 79 17 111/60 (77) 100 10/22/17 15:34 97.7 74 22 105/58 (74) 97 10/22/17 12:20 98 Simple Mask 6.00 10/22/17 11:59 68 10/22/17 11:39 99.3 83 22 103/56 (72) 98 I/O 10/22/17 10/22/17 10/22/17 10/23/17 10/23/17 10/23/17 07:00 15:00 23:00 07:00 15:00 23:00 Intake Total 420 ml Output Total 1150 ml 600 ml Balance -730 ml -600 ml Intake Oral 420 ml Output Urine Total 1150 ml 600 ml # Voids 4 3 # Bowel Movements 1 1 (Sruthi Mulligan MD, R3) Result Diagram: 10/23/17 0550 10/23/17 0550 Imaging Last Impressions Chest X-Ray 10/22/17 0000 Signed Impressions: Service Date/Time: Sunday, October 22, 2017 05:18 - CONCLUSION: Interval development of diffuse fluffy bilateral airspace opacities. Venkatesh Nieto MD Lower Extremity Ultrasound 10/19/17 0000 Signed Impressions: Service Date/Time: Thursday, October 19, 2017 18:10 - CONCLUSION: 1. No DVT identified. Cecilio Pulido MD Objective Remarks GENERAL: This is an elderly, obese male quietly resting in bed resting comfortably in bed. Smiles and readily answers questions. SKIN: Cool and dry. Stasis dermatitis in the lower extremities. AICD in the right upper chest. HEAD: Atraumatic. Normocephalic. EYES: Extraocular motions intact. No scleral icterus. No injection or drainage. NECK: Trachea midline. No JVD. CARDIOVASCULAR: Distant heart sounds. No murmurs auscultated. RESPIRATORY: Tight air movement on expiration, clear to auscultation on inspiration. O2 saturation 98% on RA during examination. Regular respiratory effort. GASTROINTESTINAL: Abdomen soft, non-tender, nondistended. MUSCULOSKELETAL: No change in edema of extremities. NEUROLOGICAL: Awake and alert. No focal deficits observed. (Sruthi Mulligan MD, R3) A/P Assessment and Plan 77 y/o M w/hx of CAD, CVA w/Broca's aphasia, Afib, CHF, DM2 admitted for influenza and weakness, now with CHF exacerbation. Improving with treatment. Discharge Planning Anticipate discharge to rehab once patient tolerating room air. Case management assisting with rehab placement. (Sruthi Mulligan MD, R3) Attending Attestation The exam, history, and the medical decision-making described in the above note were completed with the assistance of the resident physician. I reviewed and agree with the findings presented. I attest that I had a [id number] encounter with the patient on the same day, and personally performed the exam with the residents. Pt clinically improved since yesterday but still oxygen requiring for mild CHF exacerbation. No clear etiology for the transaminitis - - could be stress related and is improving. Will trend labs. Anticipate need for hospitalization 2-3 more days. (Tatiana Bach MD) Problem List: (1) CHF exacerbation ICD Codes: I50.9 - Heart failure, unspecified Status: Acute Plan: Acute on chronic systolic heart failure after IV fluid hydration Systolic heart failure Last echo 10/03/16 significant for EF 20-25% AICD in the left upper chest Was requiring supplemental O2, but is now breathing comfortably on RA during exam. Plan: - DC IV lasix - Resume home dose of Lasix 40mg PO daily - Continue lisinopril and carvedilol (2) Elevated liver enzymes ICD Codes: R74.8 - Abnormal levels of other serum enzymes Status: Acute Plan: Acute increase in LFT's on 10/22 labs. Unclear etiology. AST trending down from 714 to 388 today ALT continues to trend up from 348 to 409 today Hepatitis profile negative Obtain Liver US Continue to monitor (3) Influenza B ICD Codes: J10.1 - Influenza due to other identified influenza virus with other respiratory manifestations Status: Acute Plan: Influenza B positive Vitals are stable and patient remains afebrile Repeat CXR on 10/22 shows no signs of PNA Will add Prednisone 40mg PO daily today given tight air movement on exam. Tamiflu 75mg PO BID x 5 days (started 10/19, complete today) Tessalon perles and cough drops PRN Continue supportive care (4) Weakness ICD Codes: R53.1 - Weakness Status: Acute Plan: Likely secondary to flu and deconditioning PT consulted and recommend rehab on discharge (5) DM (diabetes mellitus) ICD Codes: E11.9 - Type 2 diabetes mellitus without complications Status: Chronic Plan: Home meds: Januvia 100 mg by mouth daily, Lantus 45 units at dinner, glipizide 10 mg twice a day Hold home medications continue to monitor bedside glucose SSI requirements increasing, will add basal Levemir 10 units SQ HS and titrate up slowly (6) HTN (hypertension) ICD Codes: I10 - Essential (primary) hypertension Status: Chronic Plan: BP Stable Continue home carvedilol 12.5mg PO Q12H Home lisinopril 10mg PO BID decreased to 5mg PO daily due to low blood pressures (7) Atrial fibrillation and flutter ICD Codes: I48.91 - Unspecified atrial fibrillation; I48.92 - Unspecified atrial flutter Status: Chronic Plan: Continue home Eliquis (8) H/O: CVA (cerebrovascular accident) ICD Codes: Z86.73 - Personal history of transient ischemic attack (TIA), and cerebral infarction without residual deficits Status: Chronic Plan: 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 Patient is unable to verbalize other than yes or no Requires wheelchair for mobility Aspirin 81 mg PO daily (9) Hypothyroidism ICD Codes: E03.9 - Hypothyroidism, unspecified Status: Chronic Plan: Continue home med levothyroxine (10) FEN Plan: Fluids: None Diet: Diabetic Electrolyte supplement as needed DVT prophylaxis: Anticoagulated on Eliquis PO BID (Sruthi Mulligan MD, R3) Problem Qualifiers (1) CHF exacerbation: Qualified Codes: I50.23 - Acute on chronic systolic (congestive) heart failure (2) DM (diabetes mellitus): Qualified Codes: E11.8 - Type 2 diabetes mellitus with unspecified complications (3) HTN (hypertension): Qualified Codes: I10 - Essential (primary) hypertension (4) Hypothyroidism: Qualified Codes: E03.9 - Hypothyroidism, unspecified Sruthi Mulligan MD, R3 Oct 23, 2017 10:14 Tatiana Bach MD Oct 23, 2017 15:38
--- NOTE | 2017-10-23 11:59 | RADRPT ---
EXAM DATE/TIME: 10/23/2017 09:52 [facility] COMPARISON: No previous studies available for comparison. INDICATIONS : Elevated liver enzymes. MEDICAL HISTORY : Cardiovascular disease. Afib, cartotid artery disease, brocas aphasia. SURGICAL HISTORY : Carotid stent. CABG. Defibrillator. Cardiac stent, gallstone removal. ENCOUNTER: Initial ACUITY: 1 day PAIN SCORE: 0/10 LOCATION: Abdomen. MEASUREMENTS: LIVER: 19.6 cm length COMMON DUCT: 8 mm RIGHT KIDNEY: 11.0 x 5.1 x 4.8 cm SPLEEN: 13.3 cm length FINDINGS: LIVER: Normal echotexture without focal lesion or ductal dilatation. The portal system is patent. There is no ascites. COMMON DUCT: No intraluminal mass or stone visualized. GALLBLADDER: There is some stones in the gallbladder. There is a stone measuring 1.3 cm. The gallbladder wall is n ot significantly thickened. There is no fluid around the gallbladder. PANCREAS: The visualized portions are within normal limits. RIGHT KIDNEY: No hydronephrosis, stone or mass. SPLEEN: No focal lesion. CONCLUSION: 1. There are gallstones in the gallbladder. No biliary tract obstruction. 2. Mild hepatosplenomegaly. Matt Traore MD on October 23, 2017 at 11:57 Board Certified Radiologist. This report was verified electronically.
[2017-10-23] MEDS: BENZONATATE 100 MG CAP PO PRN (12:02)
[2017-10-23] MEDS: ATORVASTATIN 80 MG TAB PO SCH (23:00)
[2017-10-23] MEDS: INSULIN DETEMIR 100 UNITS/ML VIAL SQ SCH (23:01)
[2017-10-24] VITALS (11 sets, daily range): BP systolic 109–149; BP diastolic 54–73; PULSE 70–79; RESP 20–22; TEMP 97.6–98.9; O2SAT 94–98
[2017-10-24] MEDS: LEVOTHYROXINE SODIUM 25 MCG TAB PO SCH (05:43)
[2017-10-24] MEDS: INSULIN ASPART SUPPLEMENTAL SCALE SQ SCH ×4 (09:49→22:45)
[2017-10-24] MEDS: OSELTAMIVIR PHOSPHATE 75 MG CAP PO SCH (09:49)
[2017-10-24] MEDS: FUROSEMIDE 40 MG TAB PO SCH (09:50)
[2017-10-24] MEDS: ASPIRIN 81 MG CHEW TAB CHEW SCH (09:50)
[2017-10-24] MEDS: SERTRALINE HCL 50 MG TAB PO SCH (09:50)
[2017-10-24] MEDS: ISOSORBIDE MONONITRATE 60 MG CR TAB (IMDUR) PO SCH ×2 (09:50→21:15)
[2017-10-24] MEDS: FERROUS SULFATE 325 MG (65 MG ELEMENTAL IRON) TAB PO SCH (09:50)
[2017-10-24] MEDS: FENOFIBRATE 145 MG TAB PO SCH (09:51)
[2017-10-24] MEDS: LISINOPRIL 5 MG TAB PO SCH (09:51)
[2017-10-24] MEDS: predniSONE 20 MG TAB PO SCH (09:51)
[2017-10-24] MEDS: CARVEDILOL 12.5 MG TAB PO SCH ×2 (09:51→21:16)
[2017-10-24] MEDS: APIXABAN 5 MG TABLET PO SCH ×2 (09:52→21:16)
[2017-10-24] MEDS: MUPIROCIN 2% CREAM 15 GM TOPICAL SCH (09:52)
[2017-10-24] MEDS: SODIUM CHLORIDE 0.9% FLUSH 10 ML FLUSH IV FLUSH SCH ×2 (09:52→21:16)
[2017-10-24 10:56] LABS: HEMATOCRIT 29.3 % (39.0-51.0); HEMOGLOBIN 9.9 GM/DL (13.0-17.0)
[2017-10-24 11:22] LABS: ALBUMIN 2.5 GM/DL (3.4-5.0); AST (GOT) 314 U/L (15-37); BICARBONATE 27.7 MEQ/L (21.0-32.0); BLOOD UREA NITROGEN 41 MG/DL (7-18); CALCIUM 8.8 MG/DL (8.5-10.1); CHLORIDE 103 MEQ/L (98-107); GLOMERULAR FILTRATION RATE 39 ML/MIN (>89); GLUCOSE,RANDOM 262 MG/DL (74-106); SODIUM (NA) 138 MEQ/L (136-145)
[2017-10-24 11:23] LABS: ALT (GPT) 599 U/L (12-78)
[2017-10-24 11:25] LABS: ALKALINE PHOSPHATASE 35 U/L (45-117); TOTAL PROTEIN 6.4 GM/DL (6.4-8.2)
[2017-10-24] MEDS ORDERED: PRED20 PO ×2 (11:59→12:11)
[2017-10-24] MEDS ORDERED: LANTUS2P SQ ×2 (11:59→12:11)
--- NOTE | 2017-10-24 12:01 | HHI.DCPOC ---
Discharge Care Plan Diagnosis: (1) CHF exacerbation Goals to Promote Your Health * To prevent worsening of your condition and complications * To maintain your health at the optimal level Directions to Meet Your Goals Take your medications as prescribed Follow your dietary instruction Follow activity as directed Keep your appointments as scheduled Take your immunizations and boosters as scheduled If your symptoms worsen call your PCP, if no PCP go to Urgent Care Center or Emergency Room Smoking is Dangerous to Your Health. Avoid second hand smoke Call the 24-hour hour crisis hotline for domestic abuse at Daiana Villasenor MD R1 Oct 24, 2017 12:01
[2017-10-24] MEDS ORDERED: Albuterol-Ipratropium Neb INH (12:16)
[2017-10-24] MEDS ORDERED: Albuterol Neb INH (12:16)
--- NOTE | 2017-10-24 12:27 | HHI.DS ---
Discharge Summary Admission Date Oct 22, 2017 at 09:10 Admitting Diagnosis ACUTE ON CHRONIC KIDNEY INJURY; SOB; COUGH; (1) CHF exacerbation Plan: Acute on chronic systolic heart failure after IV fluid hydration Systolic heart failure Last echo 10/03/16 significant for EF 20-25% AICD in the left upper chest Was requiring supplemental O2, but is now breathing comfortably on RA during exam. Lasix, lisinopril and carvedilol ICD Codes: I50.9 - Heart failure, unspecified Status: Acute (2) Elevated liver enzymes Plan: Acute increase in LFT's on 10/22 labs. Unclear etiology. AST trending down from 388-314 today ALT continues to trend up from 409-599 today Hepatitis profile negative Obtain Liver US negative for acute concerns Repeat CMP 3 days after discharge May be further assessed outpatient ICD Codes: R74.8 - Abnormal levels of other serum enzymes Status: Acute (3) Influenza B Plan: Vitals are stable and patient remains afebrile Repeat CXR on 10/22 shows no signs of PNA Will add Prednisone 40mg PO daily today given tight air movement on exam. Tamiflu 75mg PO BID x 5 days (started 10/19, complete today) Tessalon pearls and cough drops PRN Continue supportive care ICD Codes: J10.1 - Influenza due to other identified influenza virus with other respiratory manifestations Status: Acute (4) Weakness Plan: Likely secondary to flu and deconditioning PT consulted and recommend rehab on discharge ICD Codes: R53.1 - Weakness Status: Acute (5) DM (diabetes mellitus) Plan: Hold home medications continue to monitor bedside glucose SSI requirements increasing, will add basal Levemir 10 units SQ HS and titrate up slowly ICD Codes: E11.9 - Type 2 diabetes mellitus without complications Status: Chronic (6) HTN (hypertension) Plan: BP Stable Continue home carvedilol 12.5mg PO Q12H Home lisinopril 10mg PO BID decreased to 5mg PO daily due to low blood pressures ICD Codes: I10 - Essential (primary) hypertension Status: Chronic (7) Atrial fibrillation and flutter Plan: Continue home Eliquis ICD Codes: I48.91 - Unspecified atrial fibrillation; I48.92 - Unspecified atrial flutter Status: Chronic (8) H/O: CVA (cerebrovascular accident) Plan: 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 fib, diabetes, CHF, DM2 presents w/ shortness of breath and cough over the last 2 days. at bedside is providing history. She tells me that two days ago, she noticed that patient seemed tired and unable to sleep due to a cough that is worse at night, especially while laying flat. Cough is non-productive, not associated episodes of cyanosis/apnea. She is concerned because his lungs get "bad quickly." She is concerned because he sounds like he is choking when he coughs. He has not had any fever or chills. His urine appeared very dark this morning. There are no other symptoms to report at this time. Patient uses a wheelchair at baseline. Is able to speak only minimally due to Broca's aphasia. Also endorses increased weakness - has been having trouble transferring and going to the bathroom. No pain. No fevers. +rhinorrhea, decreased appetite. Loose bowels, no diarrhea. No vomiting. Tried Robitussin daytime and nighttime, did not help cough. Last hospitalization in October was for cellulitis of the lower extremity. He completed in course of antibiotics and was diagnosed with new onset A. fib at the time.Echocardiogram from 10/2016 shows an ejection fraction of 20-25%. Had defibrillator placed earlier this year. Patient is a "snow bird" from [place], comes here for the winter. Have been here since September. Sees PCP in [place]. August 19, creatinine was 1.49, which is "good for him." Would like to set up PCP closer to [place]. Saw economics instructor last year Dr. Freedman at [place]. Sees economics instructor in [place]. CBC/BMP: 10/24/17 1008 10/24/17 1008 Significant Findings Laboratory Tests Test 10/22/17 08:55 10/22/17 21:26 10/23/17 05:50 10/24/17 10:08 Blood Urea Nitrogen 36 MG/DL (7-18) 39 MG/DL (7-18) 41 MG/DL (7-18) Creatinine 1.98 MG/DL (0.60-1.30) 1.93 MG/DL (0.60-1.30) 1.70 MG/DL (0.60-1.30) Random Glucose 180 MG/DL (74-106) 203 MG/DL (74-106) 262 MG/DL (74-106) Total Protein 6.2 GM/DL (6.4-8.2) 5.8 GM/DL (6.4-8.2) Albumin 2.7 GM/DL (3.4-5.0) 2.4 GM/DL (3.4-5.0) 2.5 GM/DL (3.4-5.0) Calcium Level 8.2 MG/DL (8.5-10.1) 8.2 MG/DL (8.5-10.1) Alkaline Phosphatase 30 U/L (45-117) 31 U/L (45-117) 35 U/L (45-117) Aspartate Amino Transf (AST/SGOT) 714 U/L (15-37) 388 U/L (15-37) 314 U/L (15-37) Alanine Aminotransferase (ALT/SGPT) 348 U/L (12-78) 409 U/L (12-78) 599 U/L (12-78) Total Bilirubin 1.4 MG/DL (0.2-1.0) Estimat Glomerular Filtration Rate 33 ML/MIN (>89) 34 ML/MIN (>89) 39 ML/MIN (>89) Red Blood Count 3.06 MIL/MM3 (4.50-5.90) Hemoglobin 9.3 GM/DL (13.0-17.0) 9.9 GM/DL (13.0-17.0) Hematocrit 27.3 % (39.0-51.0) 29.3 % (39.0-51.0) Red Cell Distribution Width 17.3 % (11.6-17.2) Platelet Count 130 TH/MM3 (150-450) Neutrophils (%) (Auto) 80.4 % (16.0-70.0) PE at Discharge GENERAL: This is an elderly, obese male quietly resting in bed resting comfortably in bed. Smiles and readily answers questions. SKIN: Cool and dry. Stasis dermatitis in the lower extremities. AICD in the right upper chest. HEAD: Atraumatic. Normocephalic. EYES: Extraocular motions intact. No scleral icterus. No injection or drainage. NECK: Trachea midline. No JVD. CARDIOVASCULAR: Distant heart sounds. No murmurs auscultated. RESPIRATORY: Tight air movement on expiration, clear to auscultation on inspiration. O2 saturation 98% on RA during examination. Regular respiratory effort. GASTROINTESTINAL: Abdomen soft, non-tender, nondistended. MUSCULOSKELETAL: No change in edema of extremities. NEUROLOGICAL: Awake and alert. No focal deficits observed. Hospital Course Patient was treated for acute on chronic injury with IV maintenance fluids and daily monitoring of labs. For cough, he was given alternating treatments of albuterol and DuoNeb nebs, oxygen was monitored. Lantus 45 units was held as well as Januvia and glipizide. Patient was placed on low-dose insulin scale and monitored. Patient's by mouth Lasix was held in order to avoid further compromising renal injury. Patient's renal function showed improvement and on , patient was ready to be discharged. However, upon assessment by physical therapy, significant weakness of the patient was noted where he had to be helped by 3 people. His stay was prolonged in order to find better outpatient placement. However, that night, patient had an episode of hypoxia with oxygen saturations in the mid 80s, increased shortness of breath, and pulmonary congestion. Patient was started on Lasix IV BID, 3 L of nasal cannula oxygen, incentive spirometry. Patient showed improvement and Lasix was reduced to PO daily regimen. Due to suspicion for COPD per lung exam showing coarse rhonchi on expiration, a 5 day course of prednisone was initiated. She was evaluated by PT who recommended outpatient physical therapy. Case management was able to set up for the patient to be discharged to rehabilitation with continued physical therapy. Patient was discharged with prednisone to be continued and 15 units of Lantus daily. The rest of his DM related medications were held to prevent hypoglycemia, as morning glucose was 262 after 10 units of insulin the night before and SSI. His medications may be added on as need, recommend continued glucose check. Pt Condition on Discharge: Stable Discharge Disposition: Rehab Inpatient Discharge Instructions DIET: Follow Instructions for: As Tolerated, No Restrictions Activities you can perform: Regular-No Restrictions Follow up Referrals: PCP Follow-up - 1 Week New Orders: COMP MET PROF (CMP) - 2-3 Days New Medications: Hydrocodone W/ Homatropine (Hydrocodone/Homatropine 5-1.5 mg/5Ml) 5 Mg-1.5 Mg/5 Ml Syp 5 ML PO BID for Cough, #50 ML 0 Refills Insulin Glargine Inj (Lantus Inj) 1,000 Unit/10 Ml Vial 15 UNITS SQ HS for Blood Sugar Management for 30 Days, #1 VIAL 0 Refills Lisinopril (Lisinopril) 5 Mg Tab 5 MG PO DAILY for Blood Pressure Management, #30 TAB 0 Refills Prednisone (Prednisone) 20 Mg Tab 40 MG PO DAILY for 3 Days, #6 TAB 0 Refills Take 40 mg (2 tablets) daily for 3 days [Albuterol Neb] () 2.5 MG/3 ML NEBU 2.5 MG INH Q4HR NEB PRN for SOB/WHEEZING [Albuterol-Ipratropium Neb] () 1 AMPULE NEBU 1 AMPULE INH Q4HR NEB PRN for SOB/WHEEZING Continued Medications: Apixaban (Eliquis) 5 Mg Tab 5 MG PO BID for Blood Clot Prevention, #60 TAB 0 Refills Aspirin (Aspirin) 81 Mg Chew 81 MG CHEW DAILY, TAB 0 Refills Atorvastatin (Lipitor) 80 Mg Tab 80 MG PO HS for dyslipidemia for 30 Days, TAB 0 Refills Carvedilol (Carvedilol) 12.5 Mg Tab 12.5 MG PO BID, #60 TAB 0 Refills Cinnamon (Eql Cinnamon) 500 Mg Cap 1000 MG PO DAILY, #1 BOTTLE Fenofibrate (Fenofibrate) 145 Mg Tab 145 MG PO DAILY, #30 TAB 0 Refills Ferrous Sulfate (Ferrous Sulfate) 325 Mg (65 Mg Iron) Tablet 325 MG PO DAILY for Nutritional Supplement, #30 TAB 0 Refills Fish Oil-Cholecalciferol ([place]-3 Fish Oil/Vitamin) 1,000-1,000 Mg Cap 1 CAP PO BID for Nutritional Supplement, CAP 0 Refills Furosemide (Furosemide) 40 Mg Tab 40 MG PO DAILY, #30 TAB 0 Refills Isosorbide Mononitrate ER (Isosorbide Mononitrate ER) 60 Mg Tab 60 MG PO BID for Prevent Chest Pain, #30 TAB 0 Refills Levothyroxine (Levothyroxine) 25 Mcg Tab 25 MCG PO DAILY for Thyroid, #30 TAB 0 Refills Multiple Vitamins W/ Minerals (Centrum) 1 Chew 1 TAB CHEW DAILY for Nutritional Supplement, TAB 0 Refills Nitroglycerin SL (Nitrostat SL) 0.4 Mg Subl 0.4 MG SL DIRECTED PRN for CHEST PAIN, #100 TAB.SL 0 Refills 1 tablet under the tongue as needed for chest pain. Repeat every 5 minutes for a total of 3 DOSES or call 911 if NO relief. Sertraline (Sertraline) 50 Mg Tab 75 MG PO DAILY, #30 TAB 0 Refills Tamsulosin (Tamsulosin) 0.4 Mg Cap 0.4 MG PO HS for Manage Prostate Problems, #30 CAP 0 Refills Discontinued Medications: Glipizide ER (Glipizide XL) 10 Mg Louis 10 MG PO BID for Blood Sugar Management, #30 TAB 0 Refills Take with breakfast or first main meal of the day Insulin Glargine Inj (Lantus Inj) 100 Unit/Ml Inj 45 UNITS SQ AC DINNER Lisinopril (Lisinopril) 10 Mg Tab 10 MG PO BID, #30 TAB 0 Refills Sitagliptin (Januvia) 100 Mg Tab 100 MG PO DAILY for Blood Sugar Management, #30 TAB 0 Refills Daiana Villasenor MD R1 Oct 24, 2017 12:27
--- NOTE | 2017-10-24 12:27 | HHI.FPPN ---
Subjective Remarks No acute events overnight. Patient states that he is okay. Satting 97% on 3 L O2 overnight. I/O: 0.4/1.7. This a.m., patient was satting at 95% on room air with no increased respiratory effort. No pain or any other problems were endorsed. (Daiana Villasenor MD R1) Objective Vitals Vital Signs Date Time Temp Pulse Resp B/P (MAP) Pulse Ox O2 Delivery O2 Flow Rate FiO2 10/24/17 11:30 97.7 72 22 130/69 (89) 94 10/24/17 09:45 94 Room Air 10/24/17 09:45 78 10/24/17 07:31 97.8 79 22 116/61 (79) 94 10/24/17 06:27 94 Room Air 10/24/17 04:24 78 10/24/17 04:03 97.6 79 20 112/58 (76) 97 10/24/17 00:05 98.9 77 20 124/63 (83) 98 10/23/17 21:35 Nasal Cannula 3.00 98 10/23/17 21:07 98.5 79 20 123/79 (94) 98 10/23/17 20:18 77 10/23/17 20:00 96 Nasal Cannula 1.00 10/23/17 17:09 97.8 73 20 122/71 (88) 95 10/23/17 12:50 97 Nasal Cannula 2.00 I/O 10/23/17 10/23/17 10/23/17 10/24/17 10/24/17 10/24/17 07:00 15:00 23:00 07:00 15:00 23:00 Output Total 600 ml 400 ml 550 ml Balance -600 ml -400 ml -550 ml Output Urine Total 600 ml 400 ml 550 ml # Voids 3 4 3 # Bowel Movements 1 (Daiana Villasenor MD R1) Result Diagram: 10/24/17 1008 10/24/17 1008 Objective Remarks GENERAL: This is an elderly, obese male quietly resting in bed resting comfortably in bed. Smiles and readily answers questions. SKIN: Cool and dry. Stasis dermatitis in the lower extremities. AICD in the right upper chest. Old wound on the head is covered and a Band-Aid. Site is clean, dry, intact. HEAD: Atraumatic. Normocephalic. EYES: Extraocular motions intact. No scleral icterus. No injection or drainage. NECK: Trachea midline. No JVD. CARDIOVASCULAR: Distant heart sounds. No murmurs auscultated. RESPIRATORY: Tight air movement on expiration, clear to auscultation on inspiration. O2 saturation 98% on RA during examination. Regular respiratory effort. GASTROINTESTINAL: Abdomen soft, non-tender, nondistended. MUSCULOSKELETAL: No change in edema of extremities. NEUROLOGICAL: Awake and alert. No focal deficits observed. (Daiana Villasenor MD R1) A/P Assessment and Plan 77 y/o M w/hx of CAD, CVA w/Broca's aphasia, Afib, CHF, DM2 admitted for influenza and weakness, now with CHF exacerbation. Improving with treatment. Discharge Planning Discharged today to rehabilitation. Appreciate case management assistance. (Daiana Villasenor MD R1) Attending Attestation Patient seen and examined. Case reviewed and discussed with the resident team. Agree with plan of care as discussed with me and documented in the resident note. Patient clinically euvolemic and his pulm exam has normalized -- no wheezing, no crackles. He is 95% on room air and is back at his baseline. He has not required all his home DM and HTN medications during this hospitalization so will slowly add some of these back on but this will need to be monitored and addressed by his PCP upon discharge as he transitions into rehab and ultimately to home. (Tatiana Bach MD) Problem List: (1) CHF exacerbation ICD Codes: I50.9 - Heart failure, unspecified Status: Acute Plan: Acute on chronic systolic heart failure after IV fluid hydration Systolic heart failure Last echo 10/03/16 significant for EF 20-25% AICD in the left upper chest Was requiring supplemental O2, but is now breathing comfortably on RA during exam. Plan: - home dose of Lasix 40mg PO daily - Continue lisinopril and carvedilol (2) Shortness of breath ICD Codes: R06.02 - Shortness of breath Status: Acute Plan: Patient had an episode of shortness of breath on 10/22/17 Was given breathing treatments of albuterol and DuoNeb as Was started on prednisone 40 daily due to suspicion for COPD/bronchitis Was weaned on oxygen to be greater than 88% Shown improvement Will be given 3 more days of prednisone on discharge to complete a total 5 day course (3) Elevated liver enzymes ICD Codes: R74.8 - Abnormal levels of other serum enzymes Status: Acute Plan: Acute increase in LFT's on 10/22 labs. Unclear etiology, may be secondary to idiosyncratic drug reaction AST trending down from 388-314 today ALT continues to trend up from 409-599 today Hepatitis profile negative Obtain Liver US negative for acute concerns Repeat CMP 3 days after discharge May be further assessed and monitored outpatient (4) Influenza B ICD Codes: J10.1 - Influenza due to other identified influenza virus with other respiratory manifestations Status: Acute Plan: Influenza B positive Vitals are stable and patient remains afebrile Repeat CXR on 10/22 shows no signs of PNA Tamiflu 75mg PO BID x 5 days (started 10/19, complete today) Tessalon pearls and cough drops PRN Continue supportive care (5) Weakness ICD Codes: R53.1 - Weakness Status: Acute Plan: Likely secondary to flu and deconditioning PT consulted and recommend rehab on discharge (6) DM (diabetes mellitus) ICD Codes: E11.9 - Type 2 diabetes mellitus without complications Status: Chronic Plan: Home meds: Januvia 100 mg by mouth daily, Lantus 45 units at dinner, glipizide 10 mg twice a day Hold home medications continue to monitor bedside glucose SSI requirements increasing, will add basal Levemir 10 units SQ HS Will be given Levemir 15 units at bedtime on discharge. Can be titrated upwards as needed, continue blood glucose monitoring (7) HTN (hypertension) ICD Codes: I10 - Essential (primary) hypertension Status: Chronic Plan: BP Stable Continue home carvedilol 12.5mg PO Q12H Home lisinopril 10mg PO BID decreased to 5mg PO daily due to low blood pressures (8) Atrial fibrillation and flutter ICD Codes: I48.91 - Unspecified atrial fibrillation; I48.92 - Unspecified atrial flutter Status: Chronic Plan: Continue home Eliquis (9) H/O: CVA (cerebrovascular accident) ICD Codes: Z86.73 - Personal history of transient ischemic attack (TIA), and cerebral infarction without residual deficits Status: Chronic Plan: 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 Patient is unable to verbalize other than yes or no Requires wheelchair for mobility Aspirin 81 mg PO daily (10) Hypothyroidism ICD Codes: E03.9 - Hypothyroidism, unspecified Status: Chronic Plan: Continue home med levothyroxine (11) FEN Plan: Fluids: None Diet: Diabetic Electrolyte supplement as needed DVT prophylaxis: Anticoagulated on Eliquis PO BID (Daiana Villasenor MD R1) Problem Qualifiers (1) CHF exacerbation: Qualified Codes: I50.23 - Acute on chronic systolic (congestive) heart failure (2) DM (diabetes mellitus): Qualified Codes: E11.8 - Type 2 diabetes mellitus with unspecified complications (3) HTN (hypertension): Qualified Codes: I10 - Essential (primary) hypertension (4) Hypothyroidism: Qualified Codes: E03.9 - Hypothyroidism, unspecified Daiana Villasenor MD R1 Oct 24, 2017 12:27 Tatiana Bach MD Oct 24, 2017 14:03
[2017-10-24] MEDS: BENZONATATE 100 MG CAP PO PRN (18:01)
[2017-10-24] MEDS: ATORVASTATIN 80 MG TAB PO SCH (21:16)
[2017-10-24] MEDS: INSULIN DETEMIR 100 UNITS/ML VIAL SQ SCH (22:46)
[2017-10-25 00:14] VITALS: PULSE 78
[2017-10-25 03:04] VITALS: BP 113/65; PULSE 73; RESP 20; TEMP 97.7; O2SAT 94
[2017-10-25 04:56] VITALS: PULSE 76
[2017-10-25] MEDS: LEVOTHYROXINE SODIUM 25 MCG TAB PO SCH (05:39)
[2017-10-25 08:00] VITALS: PULSE 70
[2017-10-25] MEDS: INSULIN ASPART SUPPLEMENTAL SCALE SQ SCH ×2 (08:00→12:00)
[2017-10-25 08:20] VITALS: BP 129/60; PULSE 76; RESP 18; TEMP 97.6; O2SAT 96
--- NOTE | 2017-10-25 08:52 | HHI.FPPN ---
Subjective Remarks No acute issues overnight. Vitals are stable, patient remains afebrile. He is saturating 94-96% on room air. He denies any new concerns or complaints this morning. He denies any chest pain, shortness of breath, fever, chills, nausea or vomiting. He is having regular bowel movements. (Sruthi Mulligan MD, R3) Objective Vitals Vital Signs Date Time Temp Pulse Resp B/P (MAP) Pulse Ox O2 Delivery O2 Flow Rate FiO2 10/25/17 04:56 76 10/25/17 03:04 97.7 73 20 113/65 (81) 94 10/25/17 00:14 78 10/24/17 23:09 97.9 73 20 109/54 (72) 96 10/24/17 20:33 70 10/24/17 20:27 98.7 72 20 149/73 (98) 98 10/24/17 19:39 96 Room Air 10/24/17 18:29 79 10/24/17 15:22 97.9 78 20 129/71 (90) 96 10/24/17 11:30 97.7 72 22 130/69 (89) 94 10/24/17 09:45 94 Room Air 10/24/17 09:45 78 I/O 10/24/17 10/24/17 10/24/17 10/25/17 10/25/17 10/25/17 07:00 15:00 23:00 07:00 15:00 23:00 Output Total 550 ml 225 ml Balance -550 ml -225 ml Output Urine Total 550 ml 225 ml # Voids 3 3 (Sruthi Mulligan MD, R3) Result Diagram: 10/24/17 1008 10/24/17 1008 Imaging Last Impressions Liver Ultrasound 10/23/17 0000 Signed Impressions: Service Date/Time: October 09:52 - CONCLUSION: 1. There are gallstones in the gallbladder. No biliary tract obstruction. 2. Mild hepatosplenomegaly. Matt Traore MD Chest X-Ray 10/22/17 0000 Signed Impressions: Service Date/Time: Sunday, October 22, 2017 05:18 - CONCLUSION: Interval development of diffuse fluffy bilateral airspace opacities. Venkatesh Nieto MD Lower Extremity Ultrasound 10/19/17 0000 Signed Impressions: Service Date/Time: Thursday, October 19, 2017 18:10 - CONCLUSION: 1. No DVT identified. Cecilio Pulido MD Objective Remarks GENERAL: This is an elderly, obese male quietly resting in bed resting comfortably in bed. Smiles and readily answers questions. SKIN: Cool and dry. Stasis dermatitis in the lower extremities. AICD in the right upper chest. Wound on right temporal region clean, dry, intact and healing well. HEAD: Atraumatic. Normocephalic. EYES: Extraocular motions intact. No scleral icterus. No injection or drainage. NECK: Trachea midline. No JVD. CARDIOVASCULAR: Distant heart sounds. No murmurs auscultated. RESPIRATORY: Clear to auscultation bilaterally. O2 saturation 98% on RA during examination. Regular respiratory effort. GASTROINTESTINAL: Abdomen soft, non-tender, nondistended. MUSCULOSKELETAL: No edema. NEUROLOGICAL: Awake and alert. No focal deficits observed. (Sruthi Mulligan MD, R3) A/P Assessment and Plan 77 y/o M w/hx of CAD, CVA w/Broca's aphasia, Afib, CHF, DM2 admitted for influenza and weakness and developed a CHF exacerbation. He is not ready for discharge to SNF. Discharge Planning Discharge today to SNF. Appreciate case management assistance. (Sruthi Mulligan MD, R3) Attending Attestation case reviewed and discussed with the resident team. Agree with plan of care as discussed with me and documented in the resident note. (Tatiana Bach MD) Problem List: (1) CHF exacerbation ICD Codes: I50.9 - Heart failure, unspecified Status: Resolved Plan: Acute on chronic systolic heart failure after IV fluid hydration Systolic heart failure Last echo 10/03/16 significant for EF 20-25% AICD in the left upper chest Was requiring supplemental O2, but is now breathing comfortably on RA during exam. Continue home Lasix, lisinopril and carvedilol (2) Elevated liver enzymes ICD Codes: R74.8 - Abnormal levels of other serum enzymes Status: Acute Plan: Acute increase in LFT's on 10/22 labs. Unclear etiology. AST trending down ALT continues to trend up Hepatitis profile negative Liver US negative for acute concerns Repeat CMP 3 days after discharge May be further assessed outpatient (3) Influenza B ICD Codes: J10.1 - Influenza due to other identified influenza virus with other respiratory manifestations Status: Resolved Plan: Vitals are stable and patient remains afebrile Repeat CXR on 10/22 shows no signs of PNA Continue Prednisone 40mg PO daily x 7 days s/p Tamiflu 75mg PO BID x 5 days Tessalon pearls and cough drops PRN Continue supportive care (4) Weakness ICD Codes: R53.1 - Weakness Status: Acute Plan: Likely secondary to flu and deconditioning PT consulted and recommend rehab on discharge (5) DM (diabetes mellitus) ICD Codes: E11.9 - Type 2 diabetes mellitus without complications Status: Chronic Plan: Hold home medications continue to monitor bedside glucose SSI requirements increasing, Levemir 10 units SQ HS continue to titrate up Levemir as outpatient (6) HTN (hypertension) ICD Codes: I10 - Essential (primary) hypertension Status: Chronic Plan: BP Stable Continue home carvedilol 12.5mg PO Q12H Home lisinopril 10mg PO BID decreased to 5mg PO daily due to low blood pressures (7) Atrial fibrillation and flutter ICD Codes: I48.91 - Unspecified atrial fibrillation; I48.92 - Unspecified atrial flutter Status: Chronic Plan: Continue home Eliquis (8) H/O: CVA (cerebrovascular accident) ICD Codes: Z86.73 - Personal history of transient ischemic attack (TIA), and cerebral infarction without residual deficits Status: Chronic Plan: 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 Patient is unable to verbalize other than yes or no Requires wheelchair for mobility Aspirin 81 mg PO daily (9) Hypothyroidism ICD Codes: E03.9 - Hypothyroidism, unspecified Status: Chronic Plan: Continue home med levothyroxine (Sruthi Mulligan MD, R3) Problem Qualifiers (1) CHF exacerbation: Qualified Codes: I50.23 - Acute on chronic systolic (congestive) heart failure (2) DM (diabetes mellitus): Qualified Codes: E11.8 - Type 2 diabetes mellitus with unspecified complications (3) HTN (hypertension): Qualified Codes: I10 - Essential (primary) hypertension (4) Hypothyroidism: Qualified Codes: E03.9 - Hypothyroidism, unspecified Sruthi Mulligan MD, R3 Oct 25, 2017 08:52 Tatiana Bach MD Oct 25, 2017 15:34
[2017-10-25] MEDS: SODIUM CHLORIDE 0.9% FLUSH 10 ML FLUSH IV FLUSH SCH (09:00)
[2017-10-25 11:20] VITALS: BP 129/59; PULSE 70; RESP 20; TEMP 97.7; O2SAT 95
[2017-10-25] MEDS: FENOFIBRATE 145 MG TAB PO SCH (12:11)
[2017-10-25] MEDS: FUROSEMIDE 40 MG TAB PO SCH (12:12)
[2017-10-25] MEDS: FERROUS SULFATE 325 MG (65 MG ELEMENTAL IRON) TAB PO SCH (12:12)
[2017-10-25] MEDS: ASPIRIN 81 MG CHEW TAB CHEW SCH (12:13)
[2017-10-25] MEDS: BENZONATATE 100 MG CAP PO PRN (12:13)
[2017-10-25] MEDS: APIXABAN 5 MG TABLET PO SCH (12:14)
[2017-10-25] MEDS: LISINOPRIL 5 MG TAB PO SCH (12:14)
[2017-10-25] MEDS: predniSONE 20 MG TAB PO SCH (12:15)
[2017-10-25] MEDS: CARVEDILOL 12.5 MG TAB PO SCH (12:15)
[2017-10-25] MEDS: ISOSORBIDE MONONITRATE 60 MG CR TAB (IMDUR) PO SCH (12:16)
[2017-10-25] MEDS: MUPIROCIN 2% CREAM 15 GM TOPICAL SCH (12:17)
[2017-10-25] MEDS: SERTRALINE HCL 50 MG TAB PO SCH (12:20)
== END 2017-10-25 19:46 | DRG 682 ==
LOC: NEPE 12:32 → NEDA 15:40 → NEPHCDU 17:58 → OBSVTOIN 10-22 09:10
PROVIDERS: ADMIT Family Medicine; ATTEND Family Medicine
DX: N17.9 Acute kidney failure, unspecified (principal); I50.23 Acute on chronic systolic (congestive) heart failure; I95.9 Hypotension, unspecified; E11.22 Type 2 diabetes mellitus with diabetic chronic kidney disease; I48.92 Unspecified atrial flutter; I13.0 Hypertensive heart and chronic kidney disease with heart failure and stage 1 through stage 4 chronic kidney disease, or unspecified chronic kidney disease; E86.0 Dehydration; I48.91 Unspecified atrial fibrillation; J10.1 Influenza due to other identified influenza virus with other respiratory manifestations; N18.9 Chronic kidney disease, unspecified; E07.9 Disorder of thyroid, unspecified; E78.00 Pure hypercholesterolemia, unspecified; I25.10 Atherosclerotic heart disease of native coronary artery without angina pectoris; E03.9 Hypothyroidism, unspecified; R74.8 Abnormal levels of other serum enzymes; R09.02 Hypoxemia; I69.320 Aphasia following cerebral infarction; Z79.4 Long term (current) use of insulin; Z85.828 Personal history of other malignant neoplasm of skin; Z95.1 Presence of aortocoronary bypass graft; Z95.810 Presence of automatic (implantable) cardiac defibrillator; Z68.37 Body mass index [BMI] 37.0-37.9, adult; Z99.3 Dependence on wheelchair
CPT/HCPCS: 71045; 76705; 76937; 80048; 80053; 80074; 81001; 82550; 82552; 82948; 83690; 83880; 84484; 85014; 85018; 85025; 85027; 85610; 85730; 87070; 87205; 87804; 93005; 93971; 94150; 94640; 94664; J1644; J1815; J1940; J7030; J7512; J7613

== ENCOUNTER 2017-11-04 20:16 | Emergency (ER) | payer MEDICARE, OTHER ==
[~2017-11-04] VITALS: Ht 177.8 cm; Wt 100.0 kg
[~2017-11-04 20:16] MED LIST changes: -APIX2.5T PO; +APIX5TAB PO; +Albuterol Neb INH; +Albuterol-Ipratropium Neb INH; -BACT800T5 PO; +CARV12.52 PO; -CARV6.25 PO; -CEPH-460 PO; -GLIP1TAB52 PO; +HYDR5SYP10 PO; +LISI-519 PO; -LISI10TA3 PO; +PRED20 PO; -REFRDRO EACH EYE; -SITA1TAB2 PO; -TIZA4CAP3 PO
[2017-11-04 20:23] VITALS: BP 116/64; PULSE 82; RESP 16; TEMP 97.8; O2SAT 95
--- NOTE | 2017-11-04 20:40 | PD ---
HPI Chief Complaint: Fall Time Seen by Provider: 20:30 Travel History International Travel<30 days: No Contact w/Intl Traveler<30days: No Traveled to known affect area: No History of Present Illness HPI Patient comes to the emergency department from [facility] with a reported fall around 1600 today hitting his head. 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 Patient complaining of pain in his right upper arm that is throbbing -like in nature. Denies any radiation of the pain. Denies anything making it better or worse. Denies loss of consciousness. Denies any chest pain or headache. PFSH Past Medical History Hx Anticoagulant Therapy: Yes Blood Disorders: No Heart Rhythm Problems: Yes (NEW ONSET A-FIB 09/2016) Cancer: Yes (SKIN LESIONS REMOVED FROM FACE) Cardiovascular Problems: Yes High Cholesterol: Yes Chemotherapy: No Congestive Heart Failure: Yes Cerebrovascular Accident: Yes Diabetes: Yes Patient Takes Glucophage: No Diminished Hearing: No Endocrine: Yes Genitourinary: Yes (HAS SEEN KIDNEY ) Hypertension: Yes Immune Disorder: No Implanted Vascular Access Dvce: Yes Musculoskeletal: Yes (RIGHT ARM FLACID, RIGHT LEG WEAK/HX CVA) Neurologic: Yes (BROCAS APHASIA) Psychiatric: No Reproductive: No Respiratory: Yes Radiation Therapy: No Thyroid Disease: Yes Past Surgical History Abdominal Surgery: Yes (GALL STONES REMOVED ENDOSCOPICALLY 2006) AICD: Yes (MEDTRONIC- CRD ) Arteriovenous Shunt: No Body Medical Devices: STENTS Cardiac Surgery: Yes (STENTS: CAROTID 2009, CARDIAC 1997, CABG 1995) Coronary Artery Bypass Graft: Yes Genitourinary Surgery: Yes (KIDNEY STENTS) Insulin Pump: No Joint Replacement: No Pacemaker: No Other Surgery: Yes (R CAROTID STENT, CARDIAC STENT, CABG, GALLSTONE REMOVAL, DEFIBRILLATOR) Social History Alcohol Use: No Tobacco Use: No Substance Use: No Allergies-Medications (Allergen,Severity, Reaction): Coded Allergies: No Known Allergies (Verified Allergy, Unknown, 11/04/17) Reported Meds & Prescriptions Reported Meds & Active Scripts Active [Albuterol Neb] 2.5 MG/3 ML Nebu 2.5 Mg INH Q4HR NEB PRN [Albuterol-Ipratropium Neb] 1 AMPULE Nebu 1 Ampule INH Q4HR NEB PRN Prednisone 20 Mg Tab 40 Mg PO DAILY 3 Days Take 40 mg (2 tablets) daily for 3 days Lantus Inj (Insulin Glargine) 1,000 Unit/10 Ml Vial 15 Units SQ HS 30 Days Hydrocodone/Homatropine 5-1.5 mg/5Ml (Hydrocodone W/ Homatropine) 5 Mg-1.5 Mg/5 Ml Syp 5 Ml PO BID Lipitor (Atorvastatin Calcium) 80 Mg Tab 80 Mg PO HS 30 Days Reported Flomax (Tamsulosin HCl) 0.4 Mg Cap 0.4 Mg PO HS Lisinopril 10 Mg Tab 10 Mg PO DAILY Duoneb (Ipratropium-Albuterol Neb) 0.5-2.5 Mg/3 Ml Neb 1 Nebule INH Q6HR NEB Humalog Inj (Insulin Human Lispro) 1,000 Unit/10 Ml Vial 1-9 Units SQ ACHS Max dose at bedtime:( )units; sugars< 70,(0)units; sugars 150-199,(1)unit; sugars 200-249,(3)units; sugars 250-299,(5)units; sugars 300-349,(7)units; sugars more than 349,(9)units. Humalog Inj (Insulin Human Lispro) 1,000 Unit/10 Ml Vial 5 Units SQ ACHS Max dose at bedtime:( )units; sugars< 70,(0)units; sugars 150-199,(1)unit; sugars 200-249,(3)units; sugars 250-299,(5)units; sugars 300-349,(7)units; sugars more than 349,(9)units. Lantus Inj (Insulin Glargine) 100 Unit/Ml Inj 18 Unit SQ HS Isosorbide Mononitrate ER (Isosorbide Mononitrate) 60 Mg Tab 60 Mg PO BID Carvedilol 12.5 Mg Tab 12.5 Mg PO BID Eliquis (Apixaban) 5 Mg Tab 5 Mg PO BID Nitrostat SL (Nitroglycerin) 0.4 Mg Subl 0.4 Mg SL DIRECTED PRN 1 tablet under the tongue as needed for chest pain. Repeat every 5 minutes for a total of 3 DOSES or call 911 if NO relief. Ferrous Sulfate 325 Mg (65 Mg Iron) Tablet 325 Mg PO DAILY Eql Cinnamon (Cinnamon) 500 Mg Cap 1,000 Mg PO DAILY Centrum (Multiple Vitamins W/ Minerals) 1 Chew 1 Tab CHEW DAILY Sertraline (Sertraline HCl) 50 Mg Tab 75 Mg PO DAILY [place]-3 Fish Oil/Vitamin (Fish Oil-Cholecalciferol) 1,000-1,000 Mg Cap 1 Cap PO BID Furosemide 40 Mg Tab 40 Mg PO DAILY Aspirin 81 Mg Chew 81 Mg CHEW DAILY Tamsulosin (Tamsulosin HCl) 0.4 Mg Cap 0.4 Mg PO HS Levothyroxine (Levothyroxine Sodium) 25 Mcg Tab 25 Mcg PO DAILY Fenofibrate 145 Mg Tab 145 Mg PO DAILY Review of Systems ROS Limitations: Speech Impaired Except as stated in HPI: all other systems reviewed are Neg Physical Exam Narrative GENERAL: Well-developed, overly nourished, in no acute distress, and non-ill appearing. SKIN: Focused skin assessment warm and dry. HEAD: Atraumatic. Normocephalic. EYES: Pupils equal and round. EOMI. No scleral icterus. No injection or drainage. ENT: No nasal bleeding or discharge. Mucous membranes pink and moist. NECK: Trachea midline. Supple. No nuclear rigidity. CARDIOVASCULAR: Radial pulses 2+, equal, and intact bilaterally. Capillary refill is 2 seconds. RESPIRATORY: No accessory muscle use. No respiratory distress. MUSCULOSKELETAL: No obvious deformities. No clubbing. No cyanosis. No edema. Decreased range of motion right upper extremity secondary to splint placed by EMS. NEUROLOGICAL: Awake and alert. No obvious cranial nerve deficits. Motor grossly within normal limits. Normal speech. PSYCHIATRIC: Appropriate mood and affect; insight and judgment normal. Data Data Last Documented VS Orders Orders Humerus (Min 2vws) (11/04/17 ) Ct Brain W/O Iv Contrast(Rout) (11/04/17 ) Ct Cerv Spine W/O Contrast (11/04/17 ) Chest, Single Ap (11/04/17 ) Splint Or Brace Apply/Monitor (11/04/17 21:34) Humerus (Min 2vws) (11/04/17 ) Ed Discharge Order (11/04/17 22:20) Sling And Swathe (11/04/17 ) Fiberglass Sugartong Sp Ad Arm (11/04/17 ) Apixaban (Eliquis) (11/04/17 23:00) Insulin Human Regular Inj (Novolin R Inj (11/04/17 23:00) Tamsulosin (Flomax) (11/04/17 23:00) Isosorbide Mononitrate (Imdur) (11/04/17 23:00) Carvedilol (Coreg) (11/04/17 23:00) Sodium Chlorid 0.9% 500 Ml Inj (Ns 500 M (11/05/17 03:45) Sodium Chlorid 0.9% 500 Ml Inj (Ns 500 M (11/05/17 03:45) MDM Medical Decision Making Medical Screen Exam Complete: Yes Emergency Medical Condition: Yes Interpretation(s) Last Impressions Humerus X-Ray 11/04/17 Signed Impressions: Service Date/Time: Saturday, November 04, 2017 21:47 - CONCLUSION: 1. Improved anatomic alignment of humeral fracture. Dong Hooper MD Humerus X-Ray 11/04/17 Signed Impressions: Service Date/Time: Saturday, November 04, 2017 20:58 - CONCLUSION: 1. Angulated humeral fracture as above. Dong Hooper MD Head CT 11/04/17 Signed Impressions: Service Date/Time: Saturday, November 04, 2017 20:41 - CONCLUSION: 1. Remote lacunar infarcts in the left cerebellum and a large left posterior hemispheric infarct. No acute findings. Dong Hooper MD Chest X-Ray 11/04/17 Signed Impressions: Service Date/Time: Saturday, November 04, 2017 20:58 - CONCLUSION: 1. No acute findings. Cardiomegaly. Pacer leads present. Previous sternotomy and CABG. Dong Hooper MD Cervical Spine CT 11/04/17 Signed Impressions: Service Date/Time: Saturday, November 04, 2017 20:41 - CONCLUSION: 1. No acute findings. Moderate to severe degenerative change. Dong Hooper MD Differential Diagnosis Fracture, strain, contusion, closed head injury, intracranial hemorrhage, Narrative Course Patient's arrived at bedside reports that patient was apparently trying to get himself back into bed from his wheelchair and no one was helping him so he tried on his own which caused the fall. Patient's reports he is unable to uses right upper extremity has minimal soil conservationist strength secondary to previous stroke. The patient sustained a fracture. The distal extremity appears neurovascularly intact, without evidence of neurovascular injury nor compartment syndrome. The effected limb was splinted. The patient was discharged with fracture and splint care instructions and given warnings for vascular compromise. The patient is to follow up with Orthopedics. The patient's agrees with plan. Patient in no obvious distress upon re-evaluation. All pertinent Radiology result(s) discussed with patient/family. Discussed patient with Dr. Lamb prior discharge, who is in agreement with plan of care and disposition. Any questions/ concerns in reference to patient diagnosis/condition discussed and clarified prior to patient's discharge. Reinforced sheer importance of close follow up with orthopedic. Instructed patient and his to return to ED immediately, if symptoms return/worsen. Patient and his showed understanding of above instructions. Further instructions and recommendations were detailed in discharge paperwork. Patient left without difficulty out of ED at discharge. Physician Communication Physician Communication [id number] Quinones's PA Gus Eckert who recommends coaptation splint with sling and swath repeat x-rays of well alignment can likely be followed up outpatient with conservative treatment. And to call him back once repeat x-rays are done. [id number] discussed patient with my concern again status post splint placement and re -x-rays. Recommends outpatient follow-up. Diagnosis Primary Impression: Humeral shaft fracture Qualified Codes: S42.301A - Unspecified fracture of shaft of humerus, right arm, initial encounter for closed fracture Additional Impressions: Closed head injury Qualified Codes: S09.90XA - Unspecified injury of head, initial encounter Fall Qualified Codes: W19.XXXA - Unspecified fall, initial encounter Referrals: Bernard Quinones MD Patient Instructions: Arm Fracture in Adults (ED), Fall Prevention (ED), General Instructions, Head Injury (ED), Splint Care (DC) Additional Instructions: Follow-up with orthopedic this week for reevaluation. Wear splint with sling and swath at all times until reevaluated. Sleep and angle of 30 or higher or in a recliner to improve healing. Apply ice to affected area 20 minutes prior as needed for pain and swelling. Return to the emergency department if symptoms get worse. Disposition: 01 DISCHARGE HOME Condition: Stable Bright Bledsoe Nov 04, 2017 20:40
[2017-11-04] MEDS ORDERED: LISI10TA3 PO (20:48)
[2017-11-04] MEDS ORDERED: LANTUS2P SQ (20:48)
[2017-11-04] MEDS ORDERED: IPRASOL INH (20:48)
[2017-11-04] MEDS ORDERED: HUMALOG SQ (20:48)
[2017-11-04] MEDS ORDERED: TAMS5CAP PO (20:48)
--- NOTE | 2017-11-04 21:25 | RADRPT ---
EXAM DATE/TIME: 11/04/2017 20:41 [facility] COMPARISON: No previous studies available for comparison. INDICATIONS : Trauma; fall, right side laceration. RADIATION DOSE: 63.64 CTDIvol (mGy) MEDICAL HISTORY : Stroke. Cardiovascular disease Hypertension. SURGICAL HISTORY : CABG ENCOUNTER: Initial ACUITY: 1 day PAIN SCALE: 4/10 LOCATION: Right cranial TECHNIQUE: Multiple contiguous axial images were obtained of the head. Using automated exposure control and adj ustment of the mA and/or kV according to patient size, radiation dose was kept as low as reasonably a chievable to obtain optimal diagnostic quality images. DICOM format image data is available electro nically for review and comparison. FINDINGS: Lacunar infarcts the left cerebellar hemisphere. There is an infarct posteriorly on the left involvin g primarily the left parietal and occipital lobe. Ventricles mildly prominent. No acute bony abnormal ity. CONCLUSION: 1. Remote lacunar infarcts in the left cerebellum and a large left posterior hemispheric infarct. No acute findings. Dong Hooper MD on November 04, 2017 at 21:21 Board Certified Radiologist. This report was verified electronically.
--- NOTE | 2017-11-04 21:28 | RADRPT ---
EXAM DATE/TIME: 11/04/2017 20:41 [facility] COMPARISON: No previous studies available for comparison. INDICATIONS : Trauma; fall, right side laceration. RADIATION DOSE: 26.11 CTDIvol (mGy) MEDICAL HISTORY : Cardiovascular disease. Hypertension. Stroke. SURGICAL HISTORY : CABG ENCOUNTER: Initial ACUITY: 1 day PAIN SCALE: 5/10 LOCATION: Bilateral neck TECHNIQUE: Volumetric scanning of the cervical spine was performed. Multiplanar reconstructions in the sagittal, coronal and oblique axial planes were performed. Using automated exposure control and adjustment o f the mA and/or kV according to patient size, radiation dose was kept as low as reasonably achievable to obtain optimal diagnostic quality images. DICOM format image data is available electronically f or review and comparison. FINDINGS: No acute fracture or spondylolisthesis. Severe degenerative disc disease between C3 and C7 with multi level lateral recess and foraminal encroachment. No prevertebral soft tissue swelling. CONCLUSION: 1. No acute findings. Moderate to severe degenerative change. Dong Hooper MD on November 04, 2017 at 21:23 Board Certified Radiologist. This report was verified electronically.
--- NOTE | 2017-11-04 21:35 | RADRPT ---
EXAM DATE/TIME: 11/04/2017 20:58 [facility] COMPARISON: No previous studies available for comparison. INDICATIONS : Right humerus pain post fall. MEDICAL HISTORY : Cardiovascular disease. Afib, Cartotid artery disease, Brocas aphasia SURGICAL HISTORY : Carotid stent. CABG. Defibrillator. Cardiac stent, Gallstone removal ENCOUNTER: Initial ACUITY: 1 day PAIN SCORE: 8/10 LOCATION: Right upper extremity FINDINGS: Two view examination of the right humerus demonstrates oblique oriented angulated fracture of the mid shaft humerus with fracture line extending proximally to the humeral neck. Bones osteopenic. CONCLUSION: 1. Angulated humeral fracture as above. Dong Hooper MD on November 04, 2017 at 21:32 Board Certified Radiologist. This report was verified electronically.
--- NOTE | 2017-11-04 21:36 | RADRPT ---
EXAM DATE/TIME: 11/04/2017 20:58 [facility] COMPARISON: CHEST SINGLE AP, October 22, 2017, 5:18. INDICATIONS : Evaluate for pneumothorax, pneumonia, or communicable disease. Pre op right humerus. MEDICAL HISTORY : Cardiovascular disease. Afib, cartotid artery disease, brocas aphasia SURGICAL HISTORY : Carotid stent. CABG. Defibrillator. Cardiac stent, gallstone removal ENCOUNTER: Initial ACUITY: 1 day PAIN SCORE: 8/10 LOCATION: Bilateral chest FINDINGS: A single view of the chest demonstrates pacer leads overlying right atrium and right ventricle. No enrique ng consolidation or effusion. No pneumothorax. Previous sternotomy. Mild cardiomegaly. CONCLUSION: 1. No acute findings. Cardiomegaly. Pacer leads present. Previous sternotomy and CABG. Dong Hooper MD on November 04, 2017 at 21:33 Board Certified Radiologist. This report was verified electronically.
--- NOTE | 2017-11-04 22:18 | RADRPT ---
EXAM DATE/TIME: 11/04/2017 21:47 [facility] COMPARISON: No previous studies available for comparison. INDICATIONS : Post reduction right humerus. MEDICAL HISTORY : Cardiovascular disease. Afib, Cartotid artery disease, Brocas aphasia. SURGICAL HISTORY : Carotid stent. CABG. Defibrillator. Cardiac stent, Gallstone removal. ENCOUNTER: Subsequent ACUITY: 1 day PAIN SCORE: 5/10 LOCATION: Right Upper arm. FINDINGS: There is minimal improvement in alignment at the spiral fracture of the humeral shaft with fracture l navin extending proximally to the humeral neck. CONCLUSION: 1. Improved anatomic alignment of humeral fracture. Dong Hooper MD on November 04, 2017 at 22:16 Board Certified Radiologist. This report was verified electronically.
[2017-11-04] MEDS ORDERED: APIXABAN 5 MG TABLET PO ONE (23:00)
[2017-11-04] MEDS ORDERED: INSULIN HUMAN REGULAR 1,000 UNITS/10 ML VIAL SQ ONE (23:00)
[2017-11-04] MEDS ORDERED: ISOSORBIDE MONONITRATE 60 MG CR TAB (IMDUR) PO ONE (23:00)
[2017-11-04] MEDS ORDERED: CARVEDILOL 12.5 MG TAB PO ONE (23:00)
[2017-11-04] MEDS ORDERED: TAMSULOSIN HCL 0.4 MG CAP PO ONE (23:00)
[2017-11-05 01:41] VITALS: BP_SYST 70; BP_SYST 76; BP_DIAS 50; PULSE 75; RESP 16; O2SAT 97
--- NOTE | 2017-11-05 03:19 | PD ---
Data Data Last Documented VS Vital Signs Date Time Temp Pulse Resp B/P (MAP) Pulse Ox O2 Delivery O2 Flow Rate FiO2 11/05/17 05:36 73 16 101/58 (72) 95 Room Air 11/04/17 20:23 97.8 Orders Orders Humerus (Min 2vws) (11/04/17 ) Ct Brain W/O Iv Contrast(Rout) (11/04/17 ) Ct Cerv Spine W/O Contrast (11/04/17 ) Chest, Single Ap (11/04/17 ) Splint Or Brace Apply/Monitor (11/04/17 21:34) Humerus (Min 2vws) (11/04/17 ) Ed Discharge Order (11/04/17 22:20) Sling And Swathe (11/04/17 ) Fiberglass Sugartong Sp Ad Arm (11/04/17 ) Apixaban (Eliquis) (11/04/17 23:00) Insulin Human Regular Inj (Novolin R Inj (11/04/17 23:00) Tamsulosin (Flomax) (11/04/17 23:00) Isosorbide Mononitrate (Imdur) (11/04/17 23:00) Carvedilol (Coreg) (11/04/17 23:00) Sodium Chlorid 0.9% 500 Ml Inj (Ns 500 M (11/05/17 03:45) Sodium Chlorid 0.9% 500 Ml Inj (Ns 500 M (11/05/17 03:45) MDM Supervised Visit with MACHELLE: Yes Narrative Course Patient seen and examined by me, has but appears to be uncomplicated midshaft humerus fracture, has concerns that he missed his medicines at the halfway this evening, he has been given insulin blood pressure medications as per the order sheet. Several hours later was informed by nursing his blood pressure was somewhat low, my exam he is mentating appropriately and does not show any signs of hypoperfusion, his mucous membranes are quite dry, 500 cc bolus of fluid was ordered and will reassess After half liter of fluid his pressure is better, was given another half liter of fluid his pressure is normalized. Patient has no complaints. He is still awaiting transfer back to his facility peer Diagnosis Primary Impression: Humeral shaft fracture Qualified Codes: S42.301A - Unspecified fracture of shaft of humerus, right arm, initial encounter for closed fracture Additional Impressions: Closed head injury Qualified Codes: S09.90XA - Unspecified injury of head, initial encounter Fall Qualified Codes: W19.XXXA - Unspecified fall, initial encounter Referrals: Bernard Quinones MD Patient Instructions: General Instructions, Arm Fracture in Adults (ED), Head Injury (ED), Splint Care (DC), Fall Prevention (ED) Departure Forms: Tests/Procedures Additional Instruction: Follow-up with orthopedic this week for reevaluation. Wear splint with sling and swath at all times until reevaluated. Sleep and angle of 30 or higher or in a recliner to improve healing. Apply ice to affected area 20 minutes prior as needed for pain and swelling. Return to the emergency department if symptoms get worse. Disposition: 01 DISCHARGE HOME Condition: Stable Jens Lamb MD Nov 05, 2017 03:19
[2017-11-05 03:34] VITALS: BP 78/50; PULSE 74; RESP 16; O2SAT 96
[2017-11-05] MEDS ORDERED: SODIUM CHLORID 0.9% 500 ML INJ 500 ML IV ONE ×2 (03:45)
[2017-11-05 03:50] VITALS: BP 97/55; PULSE 74
[2017-11-05 05:36] VITALS: BP 101/58; PULSE 73; RESP 16; O2SAT 95
== END 2017-11-05 07:19 | disposition home or self-care (01) ==
LOC: NEPE 20:16
DX: S42.301A Unspecified fracture of shaft of humerus, right arm, initial encounter for closed fracture (principal); S09.90XA Unspecified injury of head, initial encounter; I69.320 Aphasia following cerebral infarction; I48.91 Unspecified atrial fibrillation; E11.9 Type 2 diabetes mellitus without complications; I11.0 Hypertensive heart disease with heart failure; W18.30XA Fall on same level, unspecified, initial encounter; Y92.099 Unspecified place in other non-institutional residence as the place of occurrence of the external cause; Z79.01 Long term (current) use of anticoagulants
CPT/HCPCS: 70450; 71045; 72125; 73060; 96372; 99284; J1815; J7040